=== PATIENT | female | born 1935 | race Caucasian/White ===

== ENCOUNTER → 2019-01-28 | Outpatient (CLI) | payer MEDICARE ==
[2019-01-28 12:29] LABS: BILIRUBIN,URINE NEGATIVE (NEGATIVE); CLARITY,URINE SL CLOUDY; COLOR,URINE YELLOW; GLUCOSE, URINE (UA) NEGATIVE (NEGATIVE); KETONES,URINE NEGATIVE (NEGATIVE); NITRITE,URINE NEGATIVE (NEGATIVE); PROTEIN,URINE NEGATIVE (NEGATIVE); UROBILINOGEN,URINE 0.2 MG/DL (NORMAL)
[2019-01-28 12:30] LABS: BACTERIA,URINE TRACE /HPF; LEUKOCYTE ESTERASE ,URINE 1+ (NEGATIVE); YEAST,URINE LARGE /HPF
== END ==
LOC: LAB FS 09:26
PROVIDERS: ATTEND Family Medicine
DX: R41.0 Disorientation, unspecified (principal); R39.15 Urgency of urination
CPT/HCPCS: 81000; 87088

== ENCOUNTER → 2019-03-13 | Outpatient (CLI) | payer MEDICARE ==
[2019-03-13 12:23] LABS: CLARITY,URINE CLOUDY; COLOR,URINE YELLOW; PH,URINE 6.5 (5-9)
[2019-03-13 12:24] LABS: BACTERIA,URINE FEW /HPF; BILIRUBIN,URINE NEGATIVE (NEGATIVE); GLUCOSE, URINE (UA) NEGATIVE (NEGATIVE); KETONES,URINE NEGATIVE (NEGATIVE); LEUKOCYTE ESTERASE ,URINE 3+ (NEGATIVE); NITRITE,URINE NEGATIVE (NEGATIVE); PROTEIN,URINE NEGATIVE (NEGATIVE); WBC,URINE TNTC /HPF
== END ==
LOC: LAB FS 11:45
PROVIDERS: ATTEND Obstetrics & Gynecology Gynecology
DX: N39.0 Urinary tract infection, site not specified (principal)
CPT/HCPCS: 81000; 87077; 87088; 87186

== ENCOUNTER → 2019-07-13 | Outpatient (CLI) | payer MEDICARE ==
--- NOTE | 2019-07-13 17:12 | Diagnostic Imaging Report ---
PROCEDURE: US right lower extremity venous. TECHNIQUE: Multiple real-time grayscale images were obtained over the right lower extremity in various projections. Additional spectral analysis and color Doppler duplex images were also obtained. INDICATION: Right lower extremity swelling. FINDINGS: Color Doppler imaging shows normal flow throughout the right lower extremity venous system. Calf compression showed normal augmentation of flow at the level. No popliteal cyst. IMPRESSION: Negative right extremity for venous thrombosis. Dictated by: Dictated on workstation # [id number]
== END ==
LOC: RAD 15:30
PROVIDERS: ATTEND Nurse Practitioner
DX: M79.89 Other specified soft tissue disorders (principal)

== ENCOUNTER → 2020-02-06 | Outpatient (CLI) | payer MEDICARE ==
--- NOTE | 2020-02-06 09:30 | Diagnostic Imaging Report ---
CLINICAL INDICATION: Patient complains of repetitive falls. EXAM: Axial CT scan of the brain without IV contrast with coronal and sagittal reformatted images. Auto Exposure Controls were utilized during the CT exam to meet ALARA standards for radiation dose reduction. COMPARISON: None. FINDINGS: There is skull streak artifact which limits evaluation of the brainstem, posterior fossa, and portions of the brain near the skull base. There are focal, patchy, and confluent areas of low-attenuation white matter changes seen throughout both cerebral hemispheres and periventricular regions which may be related to chronic small vessel ischemic disease and leukoaraiosis. The right cerebral hemisphere region is affected more than the left side. There is a small amount of low density involving the cortical and subcortical white matter regions of the occipital lobes bilaterally (left side more than the right). There is diffuse brain parenchymal volume loss. There is no hydrocephalus, brain herniation, or midline shift. The basal cisterns show no significant abnormality. The extracranial soft tissues, skull, and orbits are unremarkable. There is mild mucosal thickening involving the left maxillary sinus. The mastoid air cells are clear. IMPRESSION: 1. There is skull streak artifact which obscures portions of the brainstem, posterior fossa, and portions of the brain near the skull base. 2. There are small areas of low density involving the cortical and subcortical white matter regions of the occipital lobes bilaterally (left side more than the right). These findings may be seen with posterior reversible encephalopathy syndrome. Given that this finding is bilateral, infarcts are suspected to be less likely. Prior areas of encephalomalacia also cannot be completely excluded as this area is partially obscured by streak artifact. MRI of the brain with and without IV contrast is suggested for further evaluation. 3. Otherwise, there is no definite CT evidence of interval acute cerebral infarction, intracranial hemorrhage, or mass seen. Given the diffuse low attenuation changes throughout the brain parenchyma which can obscure more subtle findings, if there is clinical concern for acute cerebral infarction, MRI of the brain would better evaluate. Dictated by: Dictated on workstation # [id number]
== END ==
LOC: RAD FS 08:38
PROVIDERS: ATTEND Family Medicine
DX: G93.89 Other specified disorders of brain (principal); R29.90 Unspecified symptoms and signs involving the nervous system
CPT/HCPCS: 70450

== ENCOUNTER → 2020-02-13 | Outpatient (CLI) | payer MEDICARE ==
[~2020-02-13] MED LIST: GADOBUTROL 7.5 MMOL/7.5 ML (GADAVIST) VIAL IV ONE
[2020-02-13 14:14] LABS: CREATININE SERUM 1.07 MG/DL (0.60-1.30)
--- NOTE | 2020-02-13 18:40 | Diagnostic Imaging Report ---
PROCEDURE: MR imaging of the brain with and without contrast. TECHNIQUE: Multiplanar, multisequence MR imaging of the brain was performed with and without contrast. INDICATION: Left arm weakness There are no prior MRI examinations available for comparison. The CT head exam performed on 02/06/2020 did raise a question of PRES(posterior reversible encephalopathy syndrome). On the diffusion series of this exam, however, there is no abnormal signal in this region to suggest an area of acute ischemia. However, there is a band of increased signal adjacent to the right occipital horn. There is a corresponding area of diminished signal in this area on the apparent diffusion coefficient series and I do suspect this finding is related to a subacute nonhemorrhagic infarct. There is no sign of colette parenchymal hemorrhage in this region on the T1 series but there is a small area of increased signal conforming to the gyri of the right parietal lobe at this level. This may represent hemorrhagic transformation. There is no other abnormal signal arising from the brain on the diffusion series to indicate an area of acute ischemia. There is no abnormal enhancement on the postcontrast series either to suggest a neoplastic or infectious process. There is slight enhancement in the area of the suspected infarct in the right parietal lobe, however. The ventricles are stable in size when compared to the prior study. There are focal and diffuse areas of increased signal in the periventricular white matter bilaterally on the FLAIR series. These are most likely due to encephalomalacia from microvascular ischemia. The sella is not enlarged and the expected carotid flow voids are evident bilaterally. The orbits are symmetrical and within normal limits. The sinuses are generally clear. The 7th and 8th nerve complexes are unremarkable. IMPRESSION: 1. 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 There may also be a small amount of hemorrhagic transformation in this area but there is no colette parenchymal hemorrhage identified. 2. There is no acute intracranial abnormality noted otherwise. 3. These results were discussed with Dr. Lorne Deleon at the [employer]. Dictated on workstation # [id number]
== END ==
LOC: RAD 14:45
PROVIDERS: ATTEND Psychiatry & Neurology Neurology
DX: I63.89 Other cerebral infarction (principal); R53.1 Weakness
CPT/HCPCS: 36415; 70553; 82565; 84520

== ENCOUNTER 2020-02-18 15:26 | Emergency (ER) | payer MEDICARE ==
--- NOTE | 2020-02-18 16:10 | ED General ---
General Chief Complaint: Cough/Cold/Flu Symptoms Stated Complaint: SOA;FEVER History of Present Illness Date Seen by Provider: Feb 18, 2020 Time Seen by Provider: 16:06 Initial Comments 85-year-old female brought by ambulance from assisted living at [facility] they say she was short of breath getting breathing treatments all day and had a temperature of 100.4 patient agrees she's had cough and some shortness of breath starting last night she is not aware of any fever denies any kind of pain She denies knowledge of exposure to any illness pt has parkinsons and dementia hx of breast ca does use nebulized albuterol and ipatrop and has O2 on prn basis Apparently she's felt to have had a light stroke recently she denies this there is a CT scan dated 02-05 which just showed artifact with no obvious changes and then there is an MRI dated 02-12 showing subacute right parietal infarct however there is no documentation that she was seen at this facility by clinician recently She says she recently fell and hurt her right shoulder but didn't have a stroke that she knows of and her arms and legs are working normally Allergies and Home Medications Allergies Coded Allergies: Sulfa (Sulfonamide Antibiotics) (Verified Allergy, Unknown, 02/13/20) Patient Home Medication List Home Medication List Reviewed: Yes Review of Systems Review of Systems Constitutional: fever (reported by nursing facility) EENTM: no symptoms reported Respiratory: cough, short of breath Cardiovascular: no symptoms reported; No palpitations, No syncope Gastrointestinal: No abdominal pain, No diarrhea, No nausea, No vomiting Genitourinary: no symptoms reported Musculoskeletal: no symptoms reported Physical Exam Vital Signs Vital Signs - First Documented Capillary Refill : Height, Weight, BMI Height: '" Weight: lbs. oz. kg; BMI Method: General Appearance: No Apparent Distress, Other (occasional congested cough) Eyes: Bilateral Eye PERRL, Bilateral Eye EOMI HEENT: TMs Normal, Pharynx Normal, Moist Mucous Membranes Neck: Supple Respiratory: No Respiratory Distress; Rhonci Cardiovascular: Regular Rate, Rhythm Gastrointestinal: Normal Bowel Sounds, Non Tender, Soft Extremity: Other (pt has some tense edema R leg > L little red and warm and tender on R seems relatively minor) Focused Exam Lactate Level 02/18/20 15:43: Lactic Acid Level 2.15*H Lactic Acid Level Laboratory Tests Test 02/18/20 15:43 Lactic Acid Level 2.15 MMOL/L (0.50-2.00) *H Progress/Results/Core Measures Suspected Sepsis SIRS Temperature: Pulse: Respiratory Rate: Laboratory Tests 02/18/20 15:43: White Blood Count 18.7H Blood Pressure / Mean: 02/18/20 15:43: Lactic Acid Level 2.15*H Laboratory Tests 02/18/20 15:43: Creatinine 0.76, Platelet Count 199, Total Bilirubin 0.8 Results/Orders Lab Results Laboratory Tests Test 02/18/20 15:43 02/18/20 15:45 Range/Units White Blood Count 18.7 H 4.3-11.0 10^3/uL Red Blood Count 4.07 L 4.35-5.85 10^6/uL Hemoglobin 11.6 11.5-16.0 G/DL Hematocrit 37 35-52 % Mean Corpuscular Volume 90 80-99 FL Mean Corpuscular Hemoglobin 29 25-34 PG Mean Corpuscular Hemoglobin Concent 32 32-36 G/DL Red Cell Distribution Width 14.9 H 10.0-14.5 % Platelet Count 199 130-400 10^3/uL Mean Platelet Volume 11.9 H 7.4-10.4 FL Immature Granulocyte % (Auto) 1 % Neutrophils (%) (Auto) 88 H 42-75 % Lymphocytes (%) (Auto) 4 L 12-44 % Monocytes (%) (Auto) 7 0-12 % Eosinophils (%) (Auto) 0 0-10 % Basophils (%) (Auto) 0 0-10 % Neutrophils # (Auto) 16.4 H 1.8-7.8 X 10^3 Lymphocytes # (Auto) 0.8 L 1.0-4.0 X 10^3 Monocytes # (Auto) 1.3 H 0.0-1.0 X 10^3 Eosinophils # (Auto) 0.0 0.0-0.3 10^3/uL Basophils # (Auto) 0.1 0.0-0.1 10^3/uL Immature Granulocyte # (Auto) 0.1 0.0-0.1 10^3/uL Neutrophils % (Manual) 74 % Lymphocytes % (Manual) 5 % Monocytes % (Manual) 7 % Eosinophils % (Manual) 0 % Basophils % (Manual) 0 % Band Neutrophils 14 % Blood Morphology Comment NORMAL Sodium Level 135 135-145 MMOL/L Potassium Level 4.0 3.6-5.0 MMOL/L Chloride Level 96 L 98-107 MMOL/L Carbon Dioxide Level 27 21-32 MMOL/L Anion Gap 12 5-14 MMOL/L Blood Urea Nitrogen 23 H 7-18 MG/DL Creatinine 0.76 0.60-1.30 MG/DL Estimat Glomerular Filtration Rate > 60 BUN/Creatinine Ratio 30 Glucose Level 111 H 70-105 MG/DL Lactic Acid Level 2.15 *H 0.50-2.00 MMOL/L Calcium Level 9.4 8.5-10.1 MG/DL Corrected Calcium 9.3 8.5-10.1 MG/DL Total Bilirubin 0.8 0.1-1.0 MG/DL Aspartate Amino Transf (AST/SGOT) 15 5-34 U/L Alanine Aminotransferase (ALT/SGPT) 5 0-55 U/L Alkaline Phosphatase 83 40-136 U/L Total Protein 6.9 6.4-8.2 GM/DL Albumin 4.1 3.2-4.5 GM/DL My Orders Orders - SAGE HARPER MD Iv/Invasive Line Insertion .IV start (02/18/20 16:17) Cbc With Automated Diff (02/18/20 16:17) Comprehensive Metabolic Panel (02/18/20 16:17) Blood Culture (02/18/20 16:17) Lactic Acid Analyzer (02/18/20 16:17) Chest 1 View Ap/Pa Only (02/18/20 16:17) Coronavirus Sars-Cov-2 So 2018 (02/18/20 16:17) Influenza A And B Antigens (02/18/20 16:17) Agronomy Professor (02/18/20 16:17) Ekg Tracing (02/18/20 16:17) Manual Differential (02/18/20 15:43) Ceftriaxone For Iv Use (Rocephin For I (02/18/20 17:15) Azithromycin Injection (Zithromax Inject (02/18/20 17:15) Ns Iv 1000 Ml (Sodium Chloride 0.9%) (02/18/20 17:30) Vital Signs/I&O 02/18/20 02/18/20 15:30 15:30 Temp 36.9 Pulse 90 Resp 24 B/P (MAP) 114/43 (66) Pulse Ox 98 O2 Delivery Room Air Nasal Cannula O2 Flow Rate 2.00 2.00 Capillary Refill : Progress Note : Progress Note Hb 11.6 WBC 18,700 CMP essentially neg lactic 2.15 COVID pending influenza A and B - orthostatics are negative CXR - hiatal hernia densities in right lung consistent with pneumonic infiltrate in pt with cough fever and leukocytosis case discussed in detail with covering hospitalist Dr. Gonzalez feeling is that pt does not need to be admitted will give IV antibiotics (Rocephin and Azithromycin) IV fluidsand DC home on azithromycin, Pt has O2 and breathing treatment prn already ordered ECG Comment EKG - sinus rhythm @78 RBBB and LAHB no acute changes Departure Impression Primary Impression: Pneumonia Qualified Codes: J18.9 - Pneumonia, unspecified organism Disposition: HOME, SELF-CARE Condition: Stable Departure-Patient Inst. Decision time for Depature: 17:51 Referrals: SELFSANDRA MD (PCP/Family) Primary Care Physician re check in 2-3 days Patient Instructions: Pneumonia, Adult (DC) Scripts Azithromycin (Azithromycin) 250 Mg Tablet 250 MG PO DAILY, #4 TAB 0 Refills Prov: SAGE HARPER MD 02/18/20 SAGE HARPER MD Feb 18, 2020 16:10
[2020-02-18 16:34] LABS: HEMOGLOBIN 11.6 G/DL (11.5-16.0); MEAN CORPUSCULAR HEMOGLOBIN 29 PG (25-34); WHITE BLOOD COUNT 18.7 10^3/uL (4.3-11.0)
[2020-02-18 16:35] LABS: BASOPHILS # (AUTO) 0.1 10^3/uL (0.0-0.1); BASOPHILS % (AUTO) 0 % (0-10); EOSINOPHILS % (AUTO) 0 % (0-10); HEMATOCRIT 37 % (35-52); LYMPHOCYTES # (AUTO) 0.8 X 10^3 (1.0-4.0); LYMPHOCYTES % (AUTO) 4 % (12-44); MEAN CORPUSCULAR HGB CONC 32 G/DL (32-36); MEAN CORPUSCULAR VOLUME 90 FL (80-99); MEAN PLATELET VOLUME 11.9 FL (7.4-10.4); MONOCYTES # (AUTO) 1.3 X 10^3 (0.0-1.0); MONOCYTES % (AUTO) 7 % (0-12); NEUTROPHILS # (AUTO) 16.4 X 10^3 (1.8-7.8); NEUTROPHILS % (AUTO) 88 % (42-75); PLATELET COUNT 199 10^3/uL (130-400)
[2020-02-18 16:50] LABS: BUN/CREATININE RATIO 30; CARBON DIOXIDE 27 MMOL/L (21-32); CHLORIDE 96 MMOL/L (98-107); CREATININE SERUM 0.76 MG/DL (0.60-1.30); GFR ESTIMATED > 60; SODIUM 135 MMOL/L (135-145)
[2020-02-18 16:51] LABS: ALANINE AMINOTRANSFERASE 5 U/L (0-55); ALBUMIN 4.1 GM/DL (3.2-4.5); ALKALINE PHOSPHATASE 83 U/L (40-136); BILIRUBIN,TOTAL 0.8 MG/DL (0.1-1.0); CALCIUM 9.4 MG/DL (8.5-10.1); GLUCOSE 111 MG/DL (70-105); TOTAL PROTEIN 6.9 GM/DL (6.4-8.2)
--- NOTE | 2020-02-18 16:53 | Diagnostic Imaging Report ---
INDICATION: Cough and shortness of breath. COMPARISON: No comparison available. FINDINGS: There appears to be a large hiatal hernia. The patient is rotated to the right which appears to accentuate the superior mediastinal contours. There are prominent pulmonary interstitial markings which may reflect an interstitial pneumonia or interstitial edema. There is no significant effusion. There is no pneumothorax. There is no acute or suspicious osseous abnormality. IMPRESSION: 1. Apparent large hiatal hernia. 2. Rotation to the right accentuates right upper mediastinal contours 3. Prominent pulmonary interstitial markings which may reflect interstitial pneumonia or interstitial edema. Dictated by: Dictated on workstation # [id number]
[2020-02-18 16:57] LABS: BAND NEUTROPHILS 14 %; BASOPHILS % (MANUAL) 0 %; EOSINOPHILS % (MANUAL) 0 %; LYMPHOCYTES % (MANUAL) 5 %; MONOCYTES % (MANUAL) 7 %; NEUTROPHILS % (MANUAL) 74 %; RBC MORPH NORMAL
[2020-02-18] MEDS ORDERED: AZITHROMYCIN INJECTION 500 MG in NS (IVPB) 250 ML IV ONE (17:15)
[2020-02-18] MEDS ORDERED: cefTRIAXone FOR IV USE 1,000 MG in WATER (STERILE) FOR INJECTION 10 ML IV ONE (17:15)
[2020-02-18] MEDS ORDERED: NS IV 1000 ML 1,000 ML IV SCH (17:30)
[2020-02-18] MEDS ORDERED: AZIT250T12 PO (17:53)
--- NOTE | 2020-02-18 18:16 | NUR ---
Report given to JANET Singh at [facility] with understanding verbalized.
[2020-02-18 19:04] VITALS: BP 90/43
== END 2020-02-18 19:20 | disposition home or self-care (01) ==
LOC: EDUNIT# 15:26 → ER FS 15:27
DX: J18.9 Pneumonia, unspecified organism (principal); Z20.828 Contact with and (suspected) exposure to other viral communicable diseases; Z88.2 Allergy status to sulfonamides
CPT/HCPCS: 36415; 71045; 80053; 83605; 85007; 85027; 87040; 87804 ×2; 99284; U0002; 87635

== ENCOUNTER 2020-04-23 09:28 | Emergency (ER) | payer MEDICARE, OTHER ==
[~2020-04-23 09:28] MED LIST changes: +AZIT250T12 PO; -GADOBUTROL 7.5 MMOL/7.5 ML (GADAVIST) VIAL IV ONE
--- NOTE | 2020-04-23 09:37 | ED Dyspnea ---
General Stated Complaint: SOB; COVID+ History of Present Illness Date Seen by Provider: Apr 23, 2020 Time Seen by Provider: 09:37 Initial Comments 85-year-old female brought in due to some shortness of breath. Patient reports she started having just some respiratory symptoms about a week ago. Or days ago she was tested positive for COVID. Reports that last night her shortness of breath with a little bit worse and then this morning it was significantly worse. EMS was called. When EMS arrived they report her oxygen saturation was in the mid 70s. They started on 6 L nonrebreather and gave her breathing treatment. Her oxygen upon arrival to the ER is around 96-97%. Patient is alert orientated. Patient has a mild occasional cough, no reports of fevers, nausea vomiting or diarrhea. Allergies and Home Medications Allergies Coded Allergies: Sulfa (Sulfonamide Antibiotics) (Verified Allergy, Unknown, 02/13/20) acetaminophen (Verified Allergy, Unknown, 02/18/20) ciprofloxacin (Verified Allergy, Unknown, 02/18/20) codeine (Verified Allergy, Unknown, 02/18/20) meperidine (Verified Allergy, Unknown, 02/18/20) oxycodone (Verified Allergy, Unknown, 02/18/20) ropinirole (Verified Allergy, Unknown, 02/18/20) Home Medications Azithromycin 250 Mg Tablet, 250 MG PO DAILY Prescribed by: SAGE HARPER on 02/18/20 [id number] Patient Home Medication List Home Medication List Reviewed: Yes Review of Systems Review of Systems Constitutional: No chills, No fever; malaise Respiratory: cough, short of breath, wheezing Cardiovascular: No chest pain, No palpitations Gastrointestinal: No abdominal pain, No diarrhea, No nausea, No vomiting Musculoskeletal: no symptoms reported Skin: no symptoms reported Psychiatric/Neurological: No Symptoms Reported Endocrine: No Symptoms Reported Hematologic/Lymphatic: No Symptoms Reported Past Dvgcxqv-Ssbbtv-Fvvzez Hx Past Med/Social Hx: Reviewed Nursing Past Med/Soc Hx Patient Social History 2nd Hand Smoke Exposure: No Recent Foreign Travel: No Contact w/Someone Who Travel: No Recent Hopitalizations: No Seasonal Allergies Seasonal Allergies: No Past Medical History Respiratory: Yes Cardiac: Yes (CHF) High Cholesterol Dementia, Parkinson's Disease, TIA Genitourinary: Yes UTI-Chronic Gastrointestinal: Yes Gastroesophageal Reflux Musculoskeletal: Yes (Osteomyelitis, Rotator cuff tear, Restless leg syndrome) Osteoporosis, Arthritis Endocrine: Yes (Hypokalemia) Hypothyroidsim HEENT: No Cancer: Yes Breast Psychosocial: Yes Anxiety, Depression Integumentary: No Blood Disorders: No Physical Exam Vital Signs Vital Signs - First Documented 04/23/20 09:35 Temp 37.4 Pulse 88 Resp 27 B/P (MAP) 122/58 (79) Pulse Ox 95 O2 Delivery Nasal Cannula O2 Flow Rate 5.00 Capillary Refill : Height, Weight, BMI Height: '" Weight: lbs. oz. kg; BMI Method: General Appearance: Other (nonrebreather in place otherwise alert in no obvious distress) HEENT: PERRL/EOMI Neck: Non Tender, Supple Respiratory: No Accessory Muscle Use, No Respiratory Distress, Decreased Breath Sounds (bilateral bases); No Wheezing Cardiovascular: Regular Rate, Rhythm, No Edema Gastrointestinal: Non Tender, Soft Neurologic/Psychiatric: Alert, Oriented x3, No Motor/Sensory Deficits, historical archeologist II- XII Norm as Tested Skin: Normal Color, Warm/Dry Focused Exam Lactate Level 04/23/20 09:40: Lactic Acid Level 1.44 Lactic Acid Level Laboratory Tests Test 04/23/20 09:40 Lactic Acid Level 1.44 MMOL/L (0.50-2.00) Progress/Results/Core Measures Results/Orders Lab Results Laboratory Tests Test 04/23/20 09:40 Range/Units White Blood Count 5.5 4.3-11.0 10^3/uL Red Blood Count 4.99 4.35-5.85 10^6/uL Hemoglobin 14.6 11.5-16.0 G/DL Hematocrit 46 35-52 % Mean Corpuscular Volume 91 80-99 FL Mean Corpuscular Hemoglobin 29 25-34 PG Mean Corpuscular Hemoglobin Concent 32 32-36 G/DL Red Cell Distribution Width 14.3 10.0-14.5 % Platelet Count 166 130-400 10^3/uL Mean Platelet Volume 12.2 H 7.4-10.4 FL Immature Granulocyte % (Auto) 0 % Neutrophils (%) (Auto) 72 42-75 % Lymphocytes (%) (Auto) 18 12-44 % Monocytes (%) (Auto) 9 0-12 % Eosinophils (%) (Auto) 1 0-10 % Basophils (%) (Auto) 0 0-10 % Neutrophils # (Auto) 4.0 1.8-7.8 X 10^3 Lymphocytes # (Auto) 1.0 1.0-4.0 X 10^3 Monocytes # (Auto) 0.5 0.0-1.0 X 10^3 Eosinophils # (Auto) 0.0 0.0-0.3 10^3/uL Basophils # (Auto) 0.0 0.0-0.1 10^3/uL Immature Granulocyte # (Auto) 0.0 0.0-0.1 10^3/uL Sodium Level 136 135-145 MMOL/L Potassium Level 4.0 3.6-5.0 MMOL/L Chloride Level 94 L 98-107 MMOL/L Carbon Dioxide Level 32 21-32 MMOL/L Anion Gap 10 5-14 MMOL/L Blood Urea Nitrogen 25 H 7-18 MG/DL Creatinine 0.79 0.60-1.30 MG/DL Estimat Glomerular Filtration Rate > 60 BUN/Creatinine Ratio 32 Glucose Level 121 H 70-105 MG/DL Lactic Acid Level 1.44 0.50-2.00 MMOL/L Calcium Level 9.2 8.5-10.1 MG/DL Corrected Calcium 9.0 8.5-10.1 MG/DL Total Bilirubin 0.3 0.1-1.0 MG/DL Aspartate Amino Transf (AST/SGOT) 20 5-34 U/L Alanine Aminotransferase (ALT/SGPT) 5 0-55 U/L Alkaline Phosphatase 93 40-136 U/L Troponin I < 0.30 <0.30 NG/ML C-Reactive Protein 1.41 H <0.50 MG/DL Total Protein 7.0 6.4-8.2 GM/DL Albumin 4.2 3.2-4.5 GM/DL My Orders Orders - TOBAR,HI L DO Vital Signs: Every 4 Hours (Or (04/23/20 09:37) Monitor-Rhythm Ecg Trace Only (04/23/20:37) Cbc With Automated Diff (04/23/20:37) Comprehensive Metabolic Panel (04/23/20:37) Ferritin (04/23/20:37) LDH (04/23/20:37) Crp Fs (04/23/20:37) Troponin I Fs (04/23/20:37) Lactic Acid Analyzer (12/29/20 09:37) Protime With Inr (04/23/20 09:37) Partial Thromboplastin Time (04/23/20 09:37) Ekg Tracing (04/23/20 09:37) Oxygen Delivery Set Up (04/23/20 09:37) Oxygen-Administer 07,19 (04/23/20 09:37) Procalcitonin (Pct) (04/23/20 09:37) Ed Iv/Invasive Line Start (04/23/20 09:39) Ns Iv 500 Ml (Sodium Chloride 0.9%) (04/23/20 09:45) Chest 1 View Ap/Pa Only (04/23/20 10:05) Fibrin Degradation Products (04/23/20 09:40) Azithromycin 500mg Ivpb (04/23/20 10:52) Zosyn 4.5gm Iv X 1 (04/23/20 11:00) Enoxaparin Injection (Lovenox Injection) (04/23/20 11:00) Dexamethasone Injection (Decadron Inje (04/23/20 11:00) Blood Culture (04/23/20 10:52) Medications Given in ED Current Medications Medications Dose Ordered Sig/Yinka Route Start Time Stop Time Status Last Admin Dose Admin Sodium Chloride 500 ml @ 0 mls/hr Q0M ONCE IV 04/23/20 09:45 04/23/20 09:46 DC 04/23/20 10:24 1,000 MLS/HR Vital Signs/I&O 04/23/20 09:35 Temp 37.4 Pulse 88 Resp 27 B/P (MAP) 122/58 (79) Pulse Ox 95 O2 Delivery Nasal Cannula O2 Flow Rate 5.00 Initial ECG Impression Date: Apr 23, 2020 Initial ECG Impression Time: 09:52 Initial ECG Rate: 99 Initial ECG Rhythm: Normal Sinus Initial ECG Intervals RBBB Initial ECG Impression: Nonspecific Changes Comment HR 99, RBBB, sinus, non specific changes Diagnostic Imaging Diagonstic Imaging: Xray Plain Films/CT/US/NM/MRI: chest Comments [facility] [place] [place] NAME: KRYSTYNA ROBLES [facility] REC#: [id number] PT STATUS: REG ER : 1935 PHYSICIAN: HI TOBAR DO ADMIT DATE: 04/23/20/ER FS Draft Date of Exam:04/23/20 CHEST 1 VIEW AP/PA ONLY INDICATION: Cough and shortness of breath. TIME OF EXAM: 10:10 AM. COMPARISON: 02/18/2020. FINDINGS: The heart size is normal. There appears to be some parenchymal consolidation in the medial right base. The left lung is clear. The pulmonary vascularity is normal. There is no effusion or pneumothorax. IMPRESSION: Consolidation in the right medial lung base. Dictated on workstation # [id number] Dict: 04/23/20 1024 Trans: 04/23/20 1028 [id number] Interpreted by: SMITA PENNY MD Electronically signed by: Reviewed: Reviewed by Me, Reviewed/Discussed Departure Impression Primary Impression: Pneumonia Qualified Codes: J18.9 - Pneumonia, unspecified organism Additional Impression: COVID-19 Disposition: 02 XFER SHT-TRM HOSP Condition: Stable Transfer Transfer Reason: Diversion Time Spoke to Accepting Phy: 10:55 Transfer Progress Notes Discussed with Dr. Amaro who would like patient transferred to [place] due to bed situation at [facility] Transfer Facility: [facility] Method of Transfer: EMS Departure-Patient Inst. Referrals: SELF,SANDRA TAVERA (PCP/Family) Primary Care Physician HI TOBAR DO Apr 23, 2020 09:37
[2020-04-23] MEDS ORDERED: NS IV 500 ML 500 ML IV ONE (09:45)
--- NOTE | 2020-04-23 10:29 | Diagnostic Imaging Report ---
INDICATION: Cough and shortness of breath. TIME OF EXAM: 10:10 AM. COMPARISON: 02/18/2020. FINDINGS: The heart size is normal. There appears to be some parenchymal consolidation in the medial right base. The left lung is clear. The pulmonary vascularity is normal. There is no effusion or pneumothorax. IMPRESSION: Consolidation in the right medial lung base. Dictated by: Dictated on workstation # [id number]
[2020-04-23 10:31] LABS: BILIRUBIN,TOTAL 0.3 MG/DL (0.1-1.0); BUN/CREATININE RATIO 32; CALCIUM 9.2 MG/DL (8.5-10.1); CARBON DIOXIDE 32 MMOL/L (21-32); CHLORIDE 94 MMOL/L (98-107); CREATININE SERUM 0.79 MG/DL (0.60-1.30); GFR ESTIMATED > 60; GLUCOSE 121 MG/DL (70-105); SODIUM 136 MMOL/L (135-145)
[2020-04-23 10:32] LABS: ALANINE AMINOTRANSFERASE 5 U/L (0-55); ALBUMIN 4.2 GM/DL (3.2-4.5); ALKALINE PHOSPHATASE 93 U/L (40-136)
[2020-04-23 10:33] LABS: HEMATOCRIT 46 % (35-52); HEMOGLOBIN 14.6 G/DL (11.5-16.0); MEAN CORPUSCULAR HEMOGLOBIN 29 PG (25-34); MEAN CORPUSCULAR HGB CONC 32 G/DL (32-36); MEAN CORPUSCULAR VOLUME 91 FL (80-99); MEAN PLATELET VOLUME 12.2 FL (7.4-10.4); NEUTROPHILS % (AUTO) 72 % (42-75); PLATELET COUNT 166 10^3/uL (130-400); WHITE BLOOD COUNT 5.5 10^3/uL (4.3-11.0)
[2020-04-23 10:34] LABS: BASOPHILS % (AUTO) 0 % (0-10); EOSINOPHILS % (AUTO) 1 % (0-10); LYMPHOCYTES % (AUTO) 18 % (12-44); MONOCYTES # (AUTO) 0.5 X 10^3 (0.0-1.0); MONOCYTES % (AUTO) 9 % (0-12)
[2020-04-23] MEDS ORDERED: AZITHROMYCIN INJECTION 500 MG in NS (IVPB) 250 ML IV STA (10:52)
[2020-04-23] MEDS ORDERED: PIPERACILLIN SODIUM/TAZOBACTAM 4.5 GM in NS (IVPB) 100 ML IV ONE (11:00)
[2020-04-23] MEDS ORDERED: ENOXAPARIN 40 MG/0.4 ML (LOVENOX) SYR SC ONE (11:00)
--- NOTE | 2020-04-23 11:13 | NUR ---
Patient's son, Bj, notified of patient's pending admission to [facility] per patient's request.
--- NOTE | 2020-04-23 12:12 | NUR ---
EMS called for transport.
--- NOTE | 2020-04-23 12:12 | NUR ---
Patient's son, Bj called, no answer received, left message that patient is to be admitted at [facility] per Dr. Amaro's preference.
[2020-04-23 12:20] VITALS: BP 108/62
[2020-04-23 12:24] LABS: INR 0.9 (0.8-1.4); PROTHROMBIN TIME PATIENT 12.4 SEC (12.2-14.7)
[2020-04-23 12:25] LABS: FIBRIN DEGRADATION PRODUCTS 0.72 UG/ML (0.00-0.49)
== END 2020-04-23 12:30 | disposition short-term general hospital (02) ==
LOC: EDUNIT# 09:28 → ER FS 09:29
DX: U07.1 COVID-19 (principal); J12.89 Other viral pneumonia; Z86.73 Personal history of transient ischemic attack (TIA), and cerebral infarction without residual deficits; Z88.2 Allergy status to sulfonamides; Z88.5 Allergy status to narcotic agent; Z88.1 Allergy status to other antibiotic agents; Z88.6 Allergy status to analgesic agent; Z88.8 Allergy status to other drugs, medicaments and biological substances; Z85.3 Personal history of malignant neoplasm of breast
CPT/HCPCS: 36415; 71045; 80053; 82728; 83605; 83615; 84145; 84484; 85025; 85379; 85610; 85730; 86141; 87040; 93005; 93041

== ENCOUNTER 2020-10-21 16:16 | Emergency (ER) | payer MEDICARE ==
[~2020-10-21] VITALS: Ht 162.5 cm; Wt 72.6 kg
--- NOTE | 2020-10-21 16:29 | ED Dyspnea ---
General Source of Information: Patient, [facility] Records History of Present Illness Date Seen by Provider: Oct 21, 2020 Time Seen by Provider: 16:16 Initial Comments 85-year-old female presenting from [facility] due to increased shortness of breath and cough. She has a history of pneumonia and chronic breathing issues including COPD and CHF. The facility has her on oxygen 2 L/min for shortness of breath and low oxygen. She has orders for Lasix as well as breathing treatments. Today when she was feeling short of breath and wheezing EMS was activated. Her O2 sat's were in the mid 90s. She did not appear to be in any distress with her breathing and was given a breathing treatment in route. She reported a subjective fever. No chest pain, nausea, vomiting, abdominal pain, productive cough. She does have a dry cough that is not productive of sputum. Timing/Duration: Other (Patient reports this has been worsening in the last few days) Severity: Moderate Prior Episodes/Possible Cause: Chronic Episodes, Frequent Episodes Modifying Factors: Improves With Albuterol Nebulizer, Improves With Oxygen, Improves With Rest Associated Symptoms: Anxiety, Cough, Fever (Objective), Wheezing Allergies and Home Medications Allergies Coded Allergies: Sulfa (Sulfonamide Antibiotics) (Verified Allergy, Unknown, 02/13/20) acetaminophen (Verified Allergy, Unknown, 02/18/20) ciprofloxacin (Verified Allergy, Unknown, 02/18/20) codeine (Verified Allergy, Unknown, 02/18/20) meperidine (Verified Allergy, Unknown, 02/18/20) oxycodone (Verified Allergy, Unknown, 02/18/20) ropinirole (Verified Allergy, Unknown, 02/18/20) Home Medications Azithromycin 250 Mg Tablet, 250 MG PO DAILY Prescribed by: SAGE HARPER on 02/18/201752 Furosemide 40 Mg Tablet, 80 MG PO BID Prescribed by: FABIOLA TOBIAS on 10/21/201948 Patient Home Medication List Home Medication List Reviewed: Yes Review of Systems Review of Systems Constitutional: No chills; fever (Subjective fevers) EENTM: no symptoms reported Respiratory: see HPI, cough, short of breath; No stridor; wheezing Cardiovascular: No chest pain Gastrointestinal: no symptoms reported Genitourinary: no symptoms reported Musculoskeletal: no symptoms reported Skin: no symptoms reported Psychiatric/Neurological: Anxiety Endocrine: No Symptoms Reported Past Kxkbidm-Jpeiep-Utgzoy Hx Patient Social History 2nd Hand Smoke Exposure: No Recent Hopitalizations: No Seasonal Allergies Seasonal Allergies: No Past Medical History Respiratory: Yes COPD Cardiac: Yes (CHF) Cardiomyopathy (Heart failure), High Cholesterol, Hypertension Neurological: Yes Dementia, Parkinson's Disease, TIA Genitourinary: Yes UTI-Chronic Gastrointestinal: Yes Gastroesophageal Reflux Musculoskeletal: Yes (Osteomyelitis, Rotator cuff tear, Restless leg syndrome) Osteoporosis, Arthritis Endocrine: Yes (Hypokalemia) Hypothyroidsim HEENT: No Cancer: Yes Breast Psychosocial: Yes Anxiety, Depression Integumentary: No Blood Disorders: No Physical Exam Vital Signs Vital Signs - First Documented Capillary Refill : Height, Weight, BMI Height: '" Weight: lbs. oz. kg; BMI Method: General Appearance: No Apparent Distress, WD/WN Respiratory: Chest Non Tender, Decreased Breath Sounds; No Respiratory Distress, No Rhonci; Wheezing Cardiovascular: Regular Rate, Rhythm, Normal Peripheral Pulses Gastrointestinal: No Pulsatile Mass, Non Tender, Soft Rectal: Deferred Extremity: Normal Capillary Refill, No Calf Tenderness, No Pedal Edema Neurologic/Psychiatric: Alert, crane chaser II-XII Norm as Tested Skin: Normal Color, Warm/Dry Focused Exam Lactate Level 10/21/20 16:27: Lactic Acid Level 1.57 Lactic Acid Level Laboratory Tests Test 10/21/20 16:27 Lactic Acid Level 1.57 MMOL/L (0.50-2.00) Progress/Results/Core Measures Results/Orders Lab Results Laboratory Tests Test 10/21/20 16:27 Range/Units White Blood Count 20.4 H 4.3-11.0 10^3/uL Red Blood Count 4.69 4.35-5.85 10^6/uL Hemoglobin 13.9 11.5-16.0 G/DL Hematocrit 43 35-52 % Mean Corpuscular Volume 91 80-99 FL Mean Corpuscular Hemoglobin 30 25-34 PG Mean Corpuscular Hemoglobin Concent 33 32-36 G/DL Red Cell Distribution Width 14.4 10.0-14.5 % Platelet Count 293 130-400 10^3/uL Mean Platelet Volume 11.2 H 7.4-10.4 FL Immature Granulocyte % (Auto) 1 % Neutrophils (%) (Auto) 88 H 42-75 % Lymphocytes (%) (Auto) 6 L 12-44 % Monocytes (%) (Auto) 6 0-12 % Eosinophils (%) (Auto) 1 0-10 % Basophils (%) (Auto) 0 0-10 % Neutrophils # (Auto) 17.9 H 1.8-7.8 X 10^3 Lymphocytes # (Auto) 1.1 1.0-4.0 X 10^3 Monocytes # (Auto) 1.1 H 0.0-1.0 X 10^3 Eosinophils # (Auto) 0.1 0.0-0.3 10^3/uL Basophils # (Auto) 0.1 0.0-0.1 10^3/uL Immature Granulocyte # (Auto) 0.1 0.0-0.1 10^3/uL Neutrophils % (Manual) 86 % Lymphocytes % (Manual) 9 % Monocytes % (Manual) 4 % Band Neutrophils 1 % Toxic Granulation 3+ Platelet Estimate ADEQ Blood Morphology Comment NORMAL Sodium Level 133 L 135-145 MMOL/L Potassium Level 4.1 3.6-5.0 MMOL/L Chloride Level 94 L 98-107 MMOL/L Carbon Dioxide Level 30 21-32 MMOL/L Anion Gap 9 5-14 MMOL/L Blood Urea Nitrogen 17 7-18 MG/DL Creatinine 0.77 0.60-1.30 MG/DL Estimat Glomerular Filtration Rate > 60 BUN/Creatinine Ratio 22 Glucose Level 119 H 70-105 MG/DL Lactic Acid Level 1.57 0.50-2.00 MMOL/L Calcium Level 9.5 8.5-10.1 MG/DL Corrected Calcium 9.5 8.5-10.1 MG/DL Magnesium Level 1.9 1.6-2.4 MG/DL Total Bilirubin 0.5 0.1-1.0 MG/DL Aspartate Amino Transf (AST/SGOT) 7 5-34 U/L Alanine Aminotransferase (ALT/SGPT) < 5 0-55 U/L Alkaline Phosphatase 90 40-136 U/L C-Reactive Protein 2.65 H <0.50 MG/DL Pro-B-Type Natriuretic Peptide 370.5 H <75.0 PG/ML Total Protein 7.0 6.4-8.2 GM/DL Albumin 4.0 3.2-4.5 GM/DL My Orders Orders - FABIOLA TOBIAS MD Cbc With Automated Diff (10/21/20 16:24) Comprehensive Metabolic Panel (10/21/20 16:24) Blood Culture (10/21/20 16:24) Chest 1 View Ap/Pa Only (10/21/20 16:24) Magnesium (10/21/20 16:24) O2 (10/21/20 16:24) Ed Iv/Invasive Line Start (10/21/20 16:24) Sputum Culture (10/21/20 16:24) Monitor-Rhythm Ecg Trace Only (10/21/20 16:24) Crp Fs (10/21/20 16:24) Lactic Acid Analyzer (10/21/20 16:24) Manual Differential (10/21/20 16:27) Probnp Fs (10/21/20 17:29) Furosemide Tablet (Lasix Tablet) (10/21/20 20:05) Blood Culture (10/21/20 20:06) Vital Signs/I&O 10/21/20 10/21/20 10/21/20 16:24 16:24 20:22 Temp 36.9 Pulse 101 68 Resp 16 18 B/P (MAP) 116/65 (82) 121/66 Pulse Ox 91 91 97 O2 Delivery Nasal Cannula Nasal Cannula Room Air O2 Flow Rate 2.00 2.00 Progress Progress Note #1: Progress Note Obtain labs and chest x-ray. Evaluate for pneumonia or fluid buildup Progress Note #2: Progress Note Labs per stable without acute significant normality. She does not have elevated lactic acid or cardiac enzymes. Her white blood cell count is elevated but again she does not have elevated lactic acid or signs of infection otherwise. Her chest x-ray shows increased pulmonary edema for CHF but no acute infiltrate. Will treat for CHF exacerbation and increase her Lasix for the next 3 days. Have them do scheduled breathing treatments in the next 3 days. Follow-up with the clinic at the end of the week. Diagnostic Imaging Diagonstic Imaging: Xray Plain Films/CT/US/NM/MRI: chest Comments [facility]. [place], [place] NAME: KRYSTYNA ROBLES [facility] REC#: [id number] PT STATUS: REG ER : 1935 PHYSICIAN: FABIOLA TOBIAS MD ADMIT DATE: 10/21/20/ER FS Signed Date of Exam:10/21/20 CHEST 1 VIEW AP/PA ONLY INDICATION: Cough and congestion. COMPARISON: 04/23/2020. FINDINGS: Portable chest shows development of cardiomegaly. Pulmonary venous congestive changes with increased interstitial infiltrates are noted throughout. No pneumothorax. Probable small bibasilar effusions. IMPRESSION: Findings are consistent with congestive heart failure developing since previous exam. Dictated by: Dictated on workstation # [id number] Dict: 10/21/20 165 Trans: 10/21/208 AS6 [id number] Interpreted by: MONSE FONTANA MD Electronically signed by: MONSE FONTANA MD 10/21/201657 Reviewed: Reviewed by Me Departure Impression Primary Impression: CHF exacerbation Qualified Codes: I50.9 - Heart failure, unspecified Additional Impression: Shortness of breath Disposition: 01 HOME, SELF-CARE Condition: Stable Departure-Patient Inst. Decision time for Depature: 19:47 Referrals: SANDRA MAHAN MD (PCP/Family) Primary Care Physician Patient Instructions: Shortness of Breath, Adult ED, Heart Failure ED Add. Discharge Instructions: For the next 3 days take Lasix 80 mg or 2 of your 40 mg pills twice a day. Use breathing treatments of the Albuterol/Ipratropium [place] 4 times a day scheduled for the next [address] Check back with Dr. Mahan or [facility] at end of this week about shortness of breath/wheezing and your heart failure Scripts Furosemide (Furosemide) 40 Mg Tablet 80 MG PO BID for CHF for 3 Days, #12 TAB 0 Refills Prov: FABIOLA TOBIAS MD 10/21/20 FABIOLA TOBIAS MD Oct 21, 2020 16:29
--- NOTE | 2020-10-21 16:53 | Diagnostic Imaging Report ---
INDICATION: Cough and congestion. COMPARISON: 04/23/2020. FINDINGS: Portable chest shows development of cardiomegaly. Pulmonary venous congestive changes with increased interstitial infiltrates are noted throughout. No pneumothorax. Probable small bibasilar effusions. IMPRESSION: Findings are consistent with congestive heart failure developing since previous exam. Dictated by: Dictated on workstation # [id number]
[2020-10-21 17:03] LABS: HEMATOCRIT 43 % (35-52); HEMOGLOBIN 13.9 G/DL (11.5-16.0); MEAN CORPUSCULAR HEMOGLOBIN 30 PG (25-34); MEAN CORPUSCULAR HGB CONC 33 G/DL (32-36); MEAN CORPUSCULAR VOLUME 91 FL (80-99); WHITE BLOOD COUNT 20.4 10^3/uL (4.3-11.0)
[2020-10-21 17:04] LABS: BASOPHILS # (AUTO) 0.1 10^3/uL (0.0-0.1); BASOPHILS % (AUTO) 0 % (0-10); EOSINOPHILS # (AUTO) 0.1 10^3/uL (0.0-0.3); EOSINOPHILS % (AUTO) 1 % (0-10); LYMPHOCYTES # (AUTO) 1.1 X 10^3 (1.0-4.0); LYMPHOCYTES % (AUTO) 6 % (12-44); MEAN PLATELET VOLUME 11.2 FL (7.4-10.4); MONOCYTES # (AUTO) 1.1 X 10^3 (0.0-1.0); MONOCYTES % (AUTO) 6 % (0-12); NEUTROPHILS # (AUTO) 17.9 X 10^3 (1.8-7.8); NEUTROPHILS % (AUTO) 88 % (42-75); PLATELET COUNT 293 10^3/uL (130-400)
[2020-10-21 17:14] LABS: BUN/CREATININE RATIO 22; CARBON DIOXIDE 30 MMOL/L (21-32); CHLORIDE 94 MMOL/L (98-107); CREATININE SERUM 0.77 MG/DL (0.60-1.30); GFR ESTIMATED > 60; POTASSIUM 4.1 MMOL/L (3.6-5.0); SODIUM 133 MMOL/L (135-145)
[2020-10-21 17:15] LABS: ALANINE AMINOTRANSFERASE < 5 U/L (0-55); ALKALINE PHOSPHATASE 90 U/L (40-136); BILIRUBIN,TOTAL 0.5 MG/DL (0.1-1.0); CALCIUM 9.5 MG/DL (8.5-10.1); GLUCOSE 119 MG/DL (70-105); MAGNESIUM 1.9 MG/DL (1.6-2.4)
[2020-10-21 18:26] LABS: BAND NEUTROPHILS 1 %; LYMPHOCYTES % (MANUAL) 9 %; MONOCYTES % (MANUAL) 4 %; NEUTROPHILS % (MANUAL) 86 %; PLATELET ESTIMATE ADEQ; RBC MORPH NORMAL; TOXIC GRANULATION/VACUOLAZATIO 3+
[2020-10-21] MEDS ORDERED: FUROSEMIDE 40 MG/4 ML INJ (LASIX) IVP STA (19:49)
[2020-10-21] MEDS ORDERED: FURO40TA4 PO (19:49)
[2020-10-21] MEDS ORDERED: FUROSEMIDE 20 MG (LASIX) TAB PO STA (20:05)
[2020-10-21 20:22] VITALS: BP 121/66
== END 2020-10-21 20:22 | disposition home or self-care (01) ==
LOC: EDUNIT# 16:16 → ER FS 16:19
DX: I11.0 Hypertensive heart disease with heart failure (principal); I50.9 Heart failure, unspecified; R06.02 Shortness of breath; J44.9 Chronic obstructive pulmonary disease, unspecified; G20 Parkinson's disease; Z86.73 Personal history of transient ischemic attack (TIA), and cerebral infarction without residual deficits
CPT/HCPCS: 36415; 71045; 80053; 83605; 83735; 83880; 85007; 85027; 86141; 87040; 93041

== ENCOUNTER 2021-01-08 13:35 | Inpatient (IN) | payer MEDICARE ==
[~2021-01-08] VITALS: Ht 162.6 cm; Wt 71.4 kg
[~2021-01-08 13:35] MED LIST changes: +FURO40TA4 PO
[2021-01-08] MEDS ORDERED: methylPREDNISolone 125 MG (Solu-MEDROL) VIAL IV STA (13:38)
--- NOTE | 2021-01-08 13:38 | ED Cough/URI ---
General Stated Complaint: SOB; COUGH Source: patient History of Present Illness Date Seen by Provider: Jan 08, 2021 Time Seen by Provider: 13:38 Initial Comments 85-year-old female presents with shortness of breath. Patient reports that cough and shortness of breath started last night. She received a breathing treatment sometime early this morning. EMS reports that when they arrived she was audibly wheezy. They gave her a DuoNeb with improvement. Patient normally uses home oxygen. She was at 4 L upon arrival at 96%. She is unsure if she has had a fever. She denies any nausea vomiting, diarrhea, sore throat or other systemic complaints. She does report she is fully vaccinated for Covid. No other systemic complaints Allergies and Home Medications Allergies Coded Allergies: Sulfa (Sulfonamide Antibiotics) (Verified Allergy, Unknown, 02/13/20) acetaminophen (Verified Allergy, Unknown, 02/18/20) ciprofloxacin (Verified Allergy, Unknown, 02/18/20) codeine (Verified Allergy, Unknown, 02/18/20) meperidine (Verified Allergy, Unknown, 02/18/20) oxycodone (Verified Allergy, Unknown, 02/18/20) ropinirole (Verified Allergy, Unknown, 02/18/20) Patient Home Medication List Home Medication List Reviewed: Yes Apixaban (Eliquis) 2.5 Mg Tablet, (Reported) Entered as Reported by: SIDRA AYERS on 01/08/211419 Last Action: New Order Atorvastatin Calcium (Atorvastatin Calcium) 10 Mg Tablet, (Reported) Entered as Reported by: SIDRA AYERS on 01/08/211419 Last Action: New Order Carbidopa/Levodopa (Carbidopa-Levodopa 25-250 Tab) 1 Each Tablet, (Reported) Entered as Reported by: SIDRA AYERS on 01/08/211419 Last Action: New Order Diclofenac Sodium (Diclofenac Sodium) 100 Gm Gel..gram., (Reported) Entered as Reported by: SIDRA AYERS on 01/08/211419 Last Action: New Order Estradiol (Estring) 1 Each Vag.ring, (Reported) Entered as Reported by: SIDRA AYERS on 01/08/211419 Last Action: New Order Fluconazole (Fluconazole) 150 Mg Tablet, (Reported) Entered as Reported by: SIDRA AYERS on 01/08/211419 Last Action: New Order Levothyroxine Sodium (Levothyroxine Sodium) 100 Mcg Tablet, (Reported) Entered as Reported by: SIDRA AYERS on 01/08/211420 Last Action: New Order Linezolid (Linezolid) 600 Mg Tablet, (Reported) Entered as Reported by: SIDRA AYERS on 01/08/211419 Last Action: New Order Mirabegron (Myrbetriq) 50 Mg Tab.er.24h, (Reported) Entered as Reported by: SIDRA AYERS on 01/08/211419 Last Action: New Order Omeprazole (Omeprazole) 20 Mg Capsule., (Reported) Entered as Reported by: SIDRA AYERS on 01/08/211419 Last Action: New Order Paroxetine HCl (Paxil) 20 Mg Tablet, (Reported) Entered as Reported by: SIDRA AYERS on 01/08/211419 Last Action: New Order Pimavanserin Tartrate (Nuplazid) 34 Mg Capsule, (Reported) Entered as Reported by: SIDRA AYERS on 01/08/211419 Last Action: New Order Pramipexole Di-HCl (Pramipexole Dihydrochloride) 0.5 Mg Tablet, (Reported) Entered as Reported by: SIDRA AYERS on 01/08/211419 Last Action: New Order Quetiapine Fumarate (Quetiapine Fumarate) 25 Mg Tablet, (Reported) Entered as Reported by: SIDRA AYERS on 01/08/211419 Last Action: New Order Rivastigmine (Exelon) 9.5 Mg Patch, (Reported) Entered as Reported by: SIDRA AYERS on 01/08/211419 Last Action: New Order Discontinued Medications Azithromycin (Azithromycin) 250 Mg Tablet, 250 MG PO DAILY Discontinued Reason: Referral/FU Appt-Addtl Prescribed by: SAGE HARPER on 02/18/20 884 Last Action: Discontinued Furosemide (Furosemide) 40 Mg Tablet, 80 MG PO BID Discontinued Reason: Referral/FU Appt-Addtl Prescribed by: FABIOLA TOBIAS on 10/21/201948 Last Action: Discontinued Review of Systems Review of Systems Constitutional: fever EENTM: no symptoms reported; No throat pain Respiratory: cough, short of breath Cardiovascular: No chest pain, No palpitations Gastrointestinal: No abdominal pain, No nausea, No vomiting Musculoskeletal: no symptoms reported Skin: no symptoms reported Psychiatric/Neurological: No Symptoms Reported Hematologic/Lymphatic: No Symptoms Reported Immunological/Allergic: no symptoms reported Past Nbdikay-Lusioj-Bxverf Hx Seasonal Allergies Seasonal Allergies: No Past Medical History Surgeries: No Respiratory: Yes COPD Cardiac: Yes (CHF) Cardiomyopathy, High Cholesterol, Hypertension Neurological: Yes Dementia, Parkinson's Disease, TIA Genitourinary: Yes UTI-Chronic Gastrointestinal: Yes Gastroesophageal Reflux Musculoskeletal: Yes (Osteomyelitis, Rotator cuff tear, Restless leg syndrome) Osteoporosis, Arthritis Endocrine: Yes (Hypokalemia) Hypothyroidsim HEENT: No Cancer: Yes Breast Psychosocial: Yes Anxiety, Depression Integumentary: No Blood Disorders: No Physical Exam Vital Signs - First Documented Capillary Refill : Height: '" Weight: lbs. oz. kg; 27.00 BMI Method: General Appearance: WD/WN, no apparent distress Respiratory: No accessory muscle use; stridor, wheezing Cardiovascular: normal peripheral pulses, regular rate, rhythm Gastrointestinal: non tender, soft Extremities: normal range of motion, non-tender Neurologic/Psychiatric: no motor/sensory deficits, alert, normal mood/affect, oriented x 3 Skin: normal color, warm/dry Focused Exam Lactate Level 01/08/21 13:40: Lactic Acid Level 3.08*H 01/08/21 16:05: Lactic Acid Level 2.24*H Lactic Acid Level Laboratory Tests Test 01/08/21 13:40 01/08/21 16:05 Lactic Acid Level 3.08 MMOL/L (0.50-2.00) *H 2.24 MMOL/L (0.50-2.00) *H Progress/Results/Core Measures Suspected Sepsis SIRS Temperature: Pulse: Respiratory Rate: Laboratory Tests 01/08/21 13:40: White Blood Count 17.5H Blood Pressure / Mean: 01/08/21 13:40: Lactic Acid Level 3.08*H 01/08/21 16:05: Lactic Acid Level 2.24*H Laboratory Tests 01/08/21 13:40: Creatinine 0.94, Platelet Count 198, Total Bilirubin 0.7 Results/Orders Lab Results Laboratory Tests Test 01/08/21 13:40 01/08/21 16:05 Range/Units White Blood Count 17.5 H 4.3-11.0 10^3/uL Red Blood Count 4.78 3.80-5.11 10^6/uL Hemoglobin 13.8 11.5-16.0 g/dL Hematocrit 45 35-52 % Mean Corpuscular Volume 94 80-99 fL Mean Corpuscular Hemoglobin 29 25-34 pg Mean Corpuscular Hemoglobin Concent 31 L 32-36 g/dL Red Cell Distribution Width 14.5 10.0-14.5 % Platelet Count 198 130-400 10^3/uL Mean Platelet Volume 10.6 9.0-12.2 fL Immature Granulocyte % (Auto) 0 % Neutrophils (%) (Auto) 94 H 42-75 % Lymphocytes (%) (Auto) 2 L 12-44 % Monocytes (%) (Auto) 3 0-12 % Eosinophils (%) (Auto) 0 0-10 % Basophils (%) (Auto) 0 0-10 % Neutrophils # (Auto) 16.4 H 1.8-7.8 X 10^3 Lymphocytes # (Auto) 0.3 L 1.0-4.0 X 10^3 Monocytes # (Auto) 0.6 0.0-1.0 X 10^3 Eosinophils # (Auto) 0.0 0.0-0.3 10^3/uL Basophils # (Auto) 0.0 0.0-0.1 10^3/uL Immature Granulocyte # (Auto) 0.1 0.0-0.1 10^3/uL Neutrophils % (Manual) 86 % Lymphocytes % (Manual) 2 % Monocytes % (Manual) 10 % Eosinophils % (Manual) 0 % Basophils % (Manual) 0 % Band Neutrophils 2 % Sodium Level 137 135-145 MMOL/L Potassium Level 4.3 3.6-5.0 MMOL/L Chloride Level 94 L 98-107 MMOL/L Carbon Dioxide Level 30 21-32 MMOL/L Anion Gap 13 5-14 MMOL/L Blood Urea Nitrogen 16 7-18 MG/DL Creatinine 0.94 0.60-1.30 MG/DL Estimat Glomerular Filtration Rate 56 BUN/Creatinine Ratio 17 Glucose Level 119 H 70-105 MG/DL Lactic Acid Level 3.08 *H 2.24 *H 0.50-2.00 MMOL/L Calcium Level 9.5 8.5-10.1 MG/DL Corrected Calcium 9.4 8.5-10.1 MG/DL Total Bilirubin 0.7 0.1-1.0 MG/DL Aspartate Amino Transf (AST/SGOT) 30 5-34 U/L Alanine Aminotransferase (ALT/SGPT) 8 0-55 U/L Alkaline Phosphatase 81 40-136 U/L C-Reactive Protein 3.67 H <0.50 MG/DL Pro-B-Type Natriuretic Peptide 522.0 H <75.0 PG/ML Total Protein 7.2 6.4-8.2 GM/DL Albumin 4.1 3.2-4.5 GM/DL My Orders Orders - TOBAR,HI L DO Chest 1 View Ap/Pa Only (01/08/21 13:38) Rt Epinephrine (Racemic Epinephrine 2.25 (01/08/21 13:45) Methylprednisolone Sod Succ (Solu-Medrol (01/08/21 13:38) Hypertonic Saline 3% Neb (Rt-Hypertonic (01/08/21 13:45) Svn Small Volume Nebulizer (01/08/21 13:38) Cbc With Automated Diff (01/08/21 13:38) Comprehensive Metabolic Panel (01/08/21 13:38) Probnp Fs (01/08/21 13:38) Crp Fs (01/08/21 13:38) Rt Epinephrine (Racemic Epinephrine 2.25 (01/08/21 13:40) Manual Differential (01/08/21 13:40) Ceftriaxone (Rocephin) (01/08/21 14:30) Azithromycin Injection (Zithromax Inject (01/08/21 14:30) Blood Culture (01/08/21 14:50) Lactic Acid Analyzer (01/08/21 14:50) Ns Iv 1000 Ml (Sodium Chloride 0.9%) (01/08/21 14:50) Coronavirus Sars-Cov-2 So 2018 (01/08/21 13:40) Medications Given in ED Current Medications Medications Dose Ordered Sig/Yinka Route Start Time Stop Time Status Last Admin Dose Admin Azithromycin 500 mg/Sodium Chloride 250 ml @ 250 mls/hr ONCE ONCE IV 01/08/21 14:30 01/08/21 15:29 DC 01/08/21 15:03 250 MLS/HR Ceftriaxone Sodium 1000 mg/ Sterile Water 10 ml @ 200 mls/hr ONCE ONCE IV 01/08/21 14:30 01/08/21 14:32 DC 01/08/21 15:00 200 MLS/HR Epinephrine 0.5 ml ONCE ONCE INH 01/08/21 13:45 01/08/21 13:46 DC 01/08/21 13:44 0.5 ML Sodium Chloride Hypertonic 15 ml ONCE ONCE IH 01/08/21 13:45 01/08/21 13:46 DC 01/08/21 13:45 15 ML Vital Signs/I&O 01/08/21 01/08/21 01/08/21 13:35 13:35 13:44 Temp 38.6 Pulse 103 Resp 33 B/P (MAP) 137/77 (97) Pulse Ox 96 O2 Delivery Nasal Cannula Nasal Cannula Nasal Cannula O2 Flow Rate 4.00 2.00 4.00 Capillary Refill : Progress Note : Progress Note Patient with bilateral pneumonia. Patient was given azithromycin and Rocephin in the ER. Patient x-ray is concerning for Covid however patient is vaccinated and has Covid previously in June. They are currently not running any rapid Covid test in [place] so she will be admitted for pneumonia and Covid PUI. I discussed with Dr. Nichols who graciously accepted admission. Diagnostic Imaging Diagonstic Imaging: Xray Plain Films/CT/US/NM/MRI: chest Comments Date of Exam:01/08/21 CHEST 1 VIEW AP/PA ONLY INDICATION: Cough. Shortness of air. COMPARISON: 10/21/2020. FINDINGS: A single frontal radiographic view of the chest was obtained and demonstrates interval development of large dense consolidation of the right mid and lower lung silva medially. More patchy airspace opacities are also present within the right upper and scattered throughout the left lung. Small effusions cannot be excluded. There is no pneumothorax. The cardiac silhouette is within normal limits. The osseous structures show no gross acute abnormalities. IMPRESSION: Interval development of bilateral infiltrates. Followup to resolution is recommended. Correlation with Covid 19 status is also advised. Reviewed: Reviewed by Me, Reviewed/Discussed Departure Impression Primary Impression: Pneumonia Qualified Codes: J18.9 - Pneumonia, unspecified organism Additional Impression: Suspected COVID-19 virus infection Disposition: 30 STILL A PATIENT Condition: Stable Admissions Decision to Admit Reason: Admit from ER (General) Decision to Admit/Date: Jan 08, 2021 Time/Decision to Admit Time: 16:20 Departure-Patient Inst. Referrals: SELF,SANDRA TAVERA (PCP/Family) Primary Care Physician HI TOBAR DO Jan 08, 2021 13:38
[2021-01-08] MEDS ORDERED: RT-epiNEPHrine (RACEMIC) 2.25% 0.5 ML VIAL ONE (13:40)
--- OUTSIDE RECORDS SUMMARY | 2021-01-08 13:44 | XMS REPORT | Encounter Summary ---
Author Author [facility] Organization [facility] Address Unknown Phone Unavailable Care Team Providers Care Slate Splitter Name Role Phone Luiz Bowen MD Unavailable Carlitos GARCIA MD, Leland Unavailable Mary Velasquez MD Unavailable Unavailable Raul Little MD Unavailable Unavailable Amaris Pederson APRN-SUPERVISOR/PORT DIRECTOR Unavailable Lorne Deleon MD Unavailable Indra Mahan MD PCP Encounter Details Care Team Description Date Type Department 12/19/2020 Travel Social History Date Tobacco Use Types Packs/Day Years Used Quit: 02/28/1997 Former Smoker Cigarettes 0.5 40 Smokeless Tobacco: Never Used Comments Alcohol Use Standard Drinks/Week quit 1996 No 0 (1 standard drink = 0.6 o z pure alcohol) Alcohol Habits Answer Date Recorded How often do you have a drink containing alcohol? No t asked How many drinks containing alcohol do you have on No t asked a typical day when you are drinking? How often do you have six or more drinks on one Not asked occasion? Comment: quit 199609/17/2016 Sex Assigned at Date Recorded Female 01/11/2020 4:35 PM CDT Date Recorded COVID-19 Exposure Response 12/19/2020 10:36 AM CDT In the last month, have you been in contact with No / Unsure someone who was confirmed or suspected to have Coronavirus / COVID-19? documented as of this encounter Functional Status Date of Assessment Functional Status Response 05/02/2019 Does the patient have a hearing impairment: No 05/02/2019 Does the patient have a visual impairment: Yes 05/02/2019 Does the patient have impaired ambulation: Yes 05/02/2019 Does the patient have an activity of daily living Ye s (ADL) impairment: 05/02/2019 Does the patient have an instrumental activity of Ye s daily living (IADL) impairment: Date of Assessment Cognitive Status Response 05/02/2019 Does the patient have a cognitive impairment: Yes documented as of this encounter Plan of Treatment Not on filedocumented as of this encounter Visit Diagnoses Not on filedocumented in this encounter Additional Health Concerns Assessment Noted Time PHQ-9 Depression Total Score: 0 11/10/2018 1:36 PM CDT A fall risk assessment has been completed for the pat ient 07/31/2020 1:28 PM CDT A Body Mass Index follow-up plan has been documented for the patient 05/02/2019 3:45 PM DIRECTOR OF HOME HEALTH SERVICES PHQ-2 Depression Total Score: 0 12/19/2020 10:52 AM CDT documented as of this encounter
--- OUTSIDE RECORDS SUMMARY | 2021-01-08 13:44 | XMS REPORT | Encounter Summary ---
Author Author [facility] Organization [facility] Address Unknown Phone Unavailable Care Team Providers Care Control Clerk Auditing Name Role Phone Luiz Bowen MD Unavailable Carlitos GARCIA MD, Leland Unavailable Mary Velasquez MD Unavailable Unavailable Raul Little MD Unavailable Unavailable Amaris Pederson APRN-TEXTURE ARTIST Unavailable Lorne Deleon MD Unavailable Indra Mahan MD PCP Reason for Visit * Reason Comments Follow Up Vaginal atrophy Encounter Details Care Team Description Date Type Department Marita, Arline Castillo PA-C [facility] [address] [address] [phone] Vaginal atrophy (Primary Dx); Mixed stress and urge urinary incontinence 12/19/2020 Office Visit Urogynecology: [facility] [address] [place] [address] Social History Date Tobacco Use Types Packs/Day [...] / COVID-19? documented as of this encounter Last Filed Vital Signs Reading Time Taken Comments Vital Sign 110/52 12/19/2020 10:48 AM CDT Blood Pressure 79 12/19/2020 10:48 AM CDT Pulse 36.6 C (97.9 F) 12/19/2020 10:48 AM CDT Temperature 16 12/19/2020 10:48 AM CDT Respiratory Rate 93% 12/19/2020 10:48 AM CDT Oxygen Saturation - - Inhaled Oxygen Concentration 76.2 kg (168 lb) 12/19/2020 10:48 AM CDT Weight 162.6 cm (5' 4") 12/19/2020 10:48 AM CDT Height 28.84 12/19/2020 10:48 AM CDT Body Mass Index documented in this encounter Functional Status Date of Assessment [...] impairment: Yes documented as of this encounter Progress Notes * Arline Kirkland PA-C - 12/19/2020 10:30 AM CDT CHIEF COMPLAINT: Chief Complaint Patient presents with Follow Up Vaginal atrophy Chantal Pascual is a 85 y.o., female, with history of Parkinsons dise ase, urge-predominant mixed urinary incontinence (with REBECA and DO on UDS), who p resents for follow up regarding vaginal atrophy/estring change. She continues to take methenamine and does not report any recent UTIs. She also continues to take Myrbetriq. She does still have urinary incontinence, but Myrbetriq seems to help at least in part. We have previously discussed thi rd line management options for urinary incontinence and patient has declined. She denies abnormal vaginal discharge, vaginal bleeding and irritation/pain. Chantal does not have any complaints today. She is here with her son. ALLERGIES: Percocet [oxycodone-acetaminophen], Sulfa (sulfonamide antibiotics), Ciprofloxac in, Codeine, Morphine, Requip [ropinirole], and Meperidine MEDICATIONS: Current Outpatient Medications: ALPRAZolam (XANAX) 0.25 mg tablet, Take 0.5 mg by mouth every 8 hours as ne eded for Anxiety., Disp: , Rfl: apixaban (ELIQUIS) 2.5 mg tablet, Take 2.5 mg by mouth twice daily., Disp: , Rfl: ascorbate calcium (RANULFO-C PO), Take 500 mg by mouth daily., Disp: , Rfl: aspirin 325 mg tablet, Take 325 mg by mouth daily. Take with food. , Disp: , Rfl: atorvastatin (LIPITOR) 10 mg tablet, Take 5 mg by mouth daily. Indications: excessive fat in the blood, Disp: , Rfl: CALCIUM CARBONATE/VITAMIN D2 (CALCIUM + VITAMIN D PO), Take by mouth daily . 630 calcium 500 vit D, Disp: , Rfl: carbidopa/levodopa (SINEMET) 25/250 mg tablet, Take one tablet by mouth thr ee times daily for 360 days. Indications: Parkinson's disease, Disp: 270 tablet, Rfl: 3 carbidopa/levodopa CR (SINEMET CR) 50/200 mg tablet, Take one tablet by hussain th at bedtime daily., Disp: 90 tablet, Rfl: 3 cefaclor (CECLOR) 250 mg capsule, Take 250 mg by mouth daily. Indications: osteomylitis, Disp: , Rfl: cefdinir (OMNICEF) 300 mg capsule, Take 300 mg by mouth every 12 hours. For 7 days, Disp: , Rfl: COQ10 (UBIQUINOL) PO, Take 200 mg by mouth daily. gummy, Disp: , Rfl: Cranberry 500 mg cap, Take 1 capsule by mouth daily. Indications: Chronic U TI, Disp: , Rfl: diclofenac (VOLTAREN) 1 % topical gel, Apply 4 g topically to affected area four times daily., Disp: , Rfl: DM/acetaminophen/doxylamine (NITE TIME COLD-FLU PO), Take 2 capsules by hussain th every 6 hours as needed (cough)., Disp: , Rfl: esomeprazole DR,+, (NEXIUM) 40 mg capsule, Take 20 mg by mouth every mornin g. Indications: gastroesophageal reflux disease, Disp: , Rfl: estradioL (ESTRING) 2 mg (7.5 mcg /24 hour) vaginal ring, Insert or Apply o ne each to vaginal area every 90 days. follow package directions, Disp: 1 each, Rfl: 3 fluticasone-salmeterol (ADVAIR DISKUS) 250-50 mcg/dose inhalation disk, Inh lesly 1 puff by mouth into the lungs twice daily., Disp: , Rfl: Folic Acid-Vit B6-Vit B12 2.5-25-1 mg tab, Take 1 tablet by mouth daily. (P atient taking differently: Take 1 tablet by mouth every 48 hours.), Disp: 90 tab let, Rfl: 3 furosemide (LASIX) 20 mg tablet, Take 40 mg by mouth twice daily. Indicatio ns: accumulation of fluid resulting from chronic heart failure, Disp: , Rfl: guaifenesin (MUCINEX PO), Take 400 mg by mouth every 4 hours as needed (Con gestion)., Disp: , Rfl: hydrocortisone 1 % topical cream, Apply topically to affected area twice d aily as needed., Disp: , Rfl: IPRATROPIUM BROMIDE NA, Apply into nose as directed as Needed., Disp: , Rf l: L.acid/L.casei/B.bif/B.jenifer/FOS (PROBIOTIC BLEND PO), Take 1 tablet by mouth daily., Disp: , Rfl: LEVOTHYROXINE SODIUM (SYNTHROID PO), Take 100 mcg by mouth daily. Indicatio ns: a condition with low thyroid hormone levels, Disp: , Rfl: methenamine hippurate 1 gram tab, TAKE 1 TABLET BY MOUTH DAILY, Disp: 30 ta blet, Rfl: 2 mirabegron ER (MYRBETRIQ) 50 mg tablet, Take one tablet by mouth daily., Di sp: 90 tablet, Rfl: 3 montelukast (SINGULAIR) 10 mg tablet, Take 10 mg by mouth daily., Disp: , R fl: ondansetron (ZOFRAN ODT) 4 mg rapid dissolve tablet, Dissolve 4 mg by mouth every 8 hours as needed for Nausea or Vomiting. Place on tongue to dissolve., D isp: , Rfl: PARoxetine (PAXIL) 20 mg tablet, Take 1.5 tablets by mouth daily. Indicatio ns: major depressive disorder, Disp: , Rfl: pimavanserin (NUPLAZID) 34 mg capsule, Take one capsule by mouth daily., Di sp: 90 capsule, Rfl: 1 potassium chloride (KLOR-CON 8) 8 mEq tablet, Take 8 mEq by mouth twice bessy ly. Indications: low amount of potassium in the blood, Disp: , Rfl: pramipexole (MIRAPEX) 0.5 mg tablet, Take one tablet by mouth twice daily. Supper and bedtime, Disp: 180 tablet, Rfl: 3 QUEtiapine XR (SEROQUEL XR) 50 mg tablet, Take one tablet by mouth daily. ( Patient taking differently: Take 50 mg by mouth daily. Evening), Disp: 31 tablet , Rfl: 5 rivastigmine (EXELON) 9.5 mg/24 hr transdermal patch, Apply one patch to to p of skin as directed daily., Disp: 30 patch, Rfl: 5 senna/docusate (SENOKOT-S) 8.6/50 mg tablet, Take 1 tablet by mouth daily a s needed. Indications: constipation, Disp: , Rfl: traMADol (ULTRAM) 50 mg tablet, Take 50 mg by mouth every 6 hours as needed for Pain., Disp: , Rfl: Medical History: Diagnosis Date Breast CA ([facility]) 1997 left Cataract Degenerative, intervertebral disc Femur fracture ([facility]) 11/2000 compound/right Generalized headaches GERD (gastroesophageal reflux disease) Hiatal hernia Hiatal hernia Hypercalciuria Hyperlipidemia Hypothyroid Muscle spasm 04/28/14 Osteoporosis post menopausal Parkinson's disease ([facility]) RLS (restless legs syndrome) Vaginal prolapse anterior, apical Vitamin D deficiency Surgical History: Procedure Laterality Date HX APPENDECTOMY 08/1947 HEMORRHOIDECTOMY 01/1965 BREAST LUMPECTOMY 11/1997 BONE GRAFT 2000 OTHER SURGICAL HISTORY Right right lower extremity surgeries, external fixation OBJECTIVE: Vitals: 12/19/20 1048 BP: 110/52 BP Source: Arm, Right Upper Patient Position: Sitting Pulse: 79 Resp: 16 Temp: 36.6 C (97.9 F) SpO2: 93% Weight: 76.2 kg (168 lb) Height: 162.6 cm (64") PainSc: Zero Physical Exam Constitutional: General: She is not in acute distress. Appearance: She is normal weight. Genitourinary: Pelvic exam was performed with patient in the lithotomy position. Vulva and urethra normal. No posterior fourchette injury, rash or lesion present. Vaginal atrophy present. No vaginal discharge, erythema, bleeding or ulceration. HENT: Head: Normocephalic and atraumatic. Cardiovascular: Rate and Rhythm: Normal rate. Pulmonary: Effort: Pulmonary effort is normal. No respiratory distress. Musculoskeletal: Comments: Uses wheelchair, needs assistance with dressing/transfers Neurological: Mental Status: She is alert. Mental status is at baseline. Skin: General: Skin is warm and dry. Psychiatric: Cognition and Memory: Memory is impaired. IMPRESSION 85 y.o., female, with history of Parkinsons disease, seen today in [facility] w-up for vaginal atrophy/genitourinary syndrome of menopause and urge-predominan t mixed urinary incontinence (with REBECA and DO on UDS). PLAN Vaginal atrophy/genitourinary syndrome of menopause Estring changed today. Continue once q 90 days. Patient has a history of recurrent UTIs, but has not had any recent UTIs. We wi ll move forward with a trial of discontinuation of methenamine. We discussed it s possible side effects with long-term use including renal and liver dysfunction so I advised we stop it for now to determine its necessity. Her last CMP was i n September 2019 and was notable for mildly decreased eGFR of 55 which is consistent with her baseline. She may be a candidate for long-term methenamine if UTIs rec ur and its benefits therefore outweigh its risks. Urge predominant mixed urinary incontinence Continue Myrbetriq 50 mg once daily. Follow-up: 3 mo * Kaylah Braun - 12/19/2020 10:30 AM CDT Pertinent Review of Systems: - General ROS: Denies recent weight change above 10 pounds, Denies malaise - HEENT ROS: Denies blurring of vision. Denies double vision, Denies glaucoma, P OS dry eyes - Cardiovascular ROS: Denies chest pain. Denies palpitations currently. Denies o rthopnea - Respiratory ROS: Denies shortness of breath, Denies cough, Denies wheezing c urrently - Gastrointestinal ROS: Denies constipation, Denies gastric reflux, Denies bloo d in stool, Denies diarrhea, Denies Irritable bowel syndrome, Denies nausea, Den ies vomiting, Denies abdominal pain - Endocrine ROS: Denies polydipsia, Denies excessive sweating. Denies hot flash es. Denies Thyroid disease - Hematological and Lymphatic ROS: Denies easy bruisability , Denies current ane jacob, Denies adenopathy in the inguinal area - Neurological ROS: Denies syncope, Denies numbness in lower extremities, Denies neuropathy. Denies shooting pain down the legs, Denies shooting pain in the low er back, Denies low back pain - Musculoskeletal ROS: Denies Joint pain. Denies Edema in lower extremities. Den ies fibromyalgia - Psychological ROS: Denies depression, Denies anxiety, Denies thoughts of suici de, Denies thoughts of homicide, Denies recent seizure, Denies syncope - Dermatological ROS: Denies eczema. Denies skin rashes in the groin area and ot her sites documented in this encounter Plan of Treatment Not on filedocumented as of this encounter Visit Diagnoses Diagnosis Vaginal atrophy - Primary Postmenopausal atrophic vaginitis Mixed stress and urge urinary incontine nce Mixed incontinence urge and stress (mal e)(female) documented in this encounter Discontinued Medications Start Date End Date Medication Sig Discontinue Reason 05/08/2020 12/19/2020 methenamine hippurate 1 TAKE 1 Per Provider gram tabIndications: TABLET BY Overactive bladder, Mixed MOUTH DAILY stress and urge urinary incontinence documented as of this encounter Additional Health Concerns Assessment Noted Time PHQ-9 Depression Total Score: 0 11/10/2018 1:36 PM CDT A fall risk assessment has been completed for the pat ient 07/31/2020 1:28 PM CDT A Body Mass Index follow-up plan has been documented for the patient 05/02/2019 3:45 PM [employer] PHQ-2 Depression Total Score: 0 12/19/2020 10:52 AM CDT documented as of this encounter
--- OUTSIDE RECORDS SUMMARY | 2021-01-08 13:44 | XMS REPORT | Clinical Summary ---
Author Author [facility] Organization [facility] Address Unknown Phone Unavailable Care Team Providers Care Photovoltaic Installation Technician Name Role Phone Luiz Bowen MD Unavailable Carlitos GARCIA MD, Leland Unavailable Mary Velasquez MD Unavailable Unavailable Raul Little MD Unavailable Unavailable Amaris Pederson WIRELESS CONSULTANT-BEST SECOND [employer]BS Unavailable Lorne Deleon MD Unavailable Indra Mahan MD PCP Source Comments Some departments are not documenting in the electronic medical record. If you d o not see the information that you expected, contact Release of Information in [facility] [employer] Information Management department at [phone] for further assistan ce in locating additional records.[facility] Allergies Comments Active Allergy Reactions Severity Noted Date Ciprofloxacin NAUSEA AND 01/14/2011 VOMITING Codeine SHORTNESS OF 01/14/2011 BREATH Allergy recorded in SMS: Demerol~Reactions: ITCHING Meperidine Low 01/01/2005 Morphine NAUSEA AND 01/14/2011 VOMITING Allergy recorded in SMS: Percocet~Reactions: NAUSEA Oxycodone-Acetaminophen NAUSEA AND Medium 2004 VOMITING Ropinirole STOMACH UPSET 12/12/2013 Allergy recorded in SMS: Sulfa~Reactions: GI UPSET Sulfa (Sulfonamide Medium 01/01/2005 Antibiotics) Medications End Date Status Medication Sig Dispensed Refills Start Date Active LEVOTHYROXINE SODIUM Take 100 mcg 0 (SYNTHROID by mouth PO)Indications: daily. hypothyroidism Indications: a condition with low thyroid hormone levels Active esomeprazole DR,+, Take 20 mg by 0 (NEXIUM) 40 mg mouth every capsuleIndications: morning. gastroesophageal reflux Indications: disease gastroesophag eal reflux disease Active CALCIUM CARBONATE/VITAMIN Take by 0 D2 (CALCIUM + VITAMIN D mouth daily. PO) 630 calcium 500 vit D Active atorvastatin (LIPITOR) 10 Take 5 mg by 0 mg tabletIndications: mouth daily. hyperlipidemia Indications: excessive fat in the blood Active ALPRAZolam (XANAX) 0.25 Take 0.5 mg 0 mg tablet by mouth every 8 hours as needed for Anxiety. Active furosemide (LASIX) 20 mg Take 40 mg by 0 tabletIndications: mouth twice peripheral edema due to daily. chronic heart failure Indications: accumulation of fluid resulting from chronic heart failure Active rivastigmine (EXELON) 9.5 Apply one 30 patch 5 mg/24 hr transdermal patch to top 9 patch of skin as directed daily. Active traMADol (ULTRAM) 50 mg Take 50 mg by 0 tablet mouth every 6 hours as needed for Pain. Active potassium chloride Take 8 mEq by 0 (KLOR-CON 8) 8 mEq mouth twice tabletIndications: daily. hypokalemia Indications: low amount of potassium in the blood Active Cranberry 500 mg Take 1 0 capIndications: Chronic capsule by UTI mouth daily. Indications: Chronic UTI Active ondansetron (ZOFRAN ODT) Dissolve 4 mg 0 4 mg rapid dissolve by mouth tablet every 8 hours as needed for Nausea or Vomiting. Place on tongue to dissolve. Active L.acid/L.casei/B.bif/B.lo Take 1 tablet 0 n/FOS (PROBIOTIC BLEND by mouth PO) daily. Active hydrocortisone 1 % Apply 0 topical cream topically to affected area twice daily as needed. Active guaifenesin (MUCINEX PO) Take 400 mg 0 by mouth every 4 hours as needed (Congestion). Active cefaclor (CECLOR) 250 mg Take 250 mg 0 06/16 capsuleIndications: by mouth 9 osteomylitis daily. Indications: osteomylitis Active DM/acetaminophen/doxylami Take 2 0 ne (NITE TIME COLD-FLU capsules by PO) mouth every 6 hours as needed (cough). Active aspirin 325 mg tablet Take 325 mg 0 by mouth daily. Take with food. Active senna/docusate Take 1 tablet 0 (SENOKOT-S) 8.6/50 mg by mouth tabletIndications: daily as constipation needed. Indications: constipation Active Folic Acid-Vit B6-Vit B12 Take 1 tablet 90 tablet 3 2.5-25-1 mg tab by mouth 0 daily. Additional Information Patient taking differently: 1 tablet Oral EVERY 48 HOURS, Reported on 02/20/2020 Active ascorbate calcium Take 500 mg 0 (RANULFO-C PO) by mouth daily. Active IPRATROPIUM BROMIDE NA Apply into 0 nose as directed as Needed. Active carbidopa/levodopa CR Take one 90 tablet 3 09/26 (SINEMET CR) 50/200 mg tablet by 0 tabletIndications: mouth at Parkinson disease ([facility]) bedtime daily. Active diclofenac (VOLTAREN) 1 % Apply 4 g 0 topical gel topically to affected area four times daily. Active cefdinir (OMNICEF) 300 mg Take 300 mg 0 capsule by mouth every 12 hours. For 7 days Active PARoxetine (PAXIL) 20 mg Take 1.5 0 02/19 tabletIndications: major tablets by 0 depressive disorder mouth daily. Indications: major depressive disorder Active pramipexole (MIRAPEX) 0.5 Take one 180 tablet 3 mg tabletIndications: tablet by 0 Parkinson disease ([facility]) mouth twice daily. Supper and bedtime 05/02/2021 Active carbidopa/levodopa Take one 270 tablet 3 02 (SINEMET) 25/250 mg tablet by 1 tabletIndications: mouth three idiopathic parkinsonism times daily for 360 days. Indications: Parkinson's disease Active montelukast (SINGULAIR) Take 10 mg by 0 10 mg tablet mouth daily. Active apixaban (ELIQUIS) 2.5 mg Take 2.5 mg 0 tablet by mouth twice daily. Active COQ10 (UBIQUINOL) PO Take 200 mg 0 by mouth daily. gummy Active fluticasone-salmeterol Inhale 1 puff 0 (ADVAIR DISKUS) 250-50 by mouth into mcg/dose inhalation disk the lungs twice daily. Active QUEtiapine XR (SEROQUEL Take one 31 tablet 5 XR) 50 mg tablet tablet by 1 mouth daily. Additional Information Patient taking differently: 50 mg Oral DAILY, Evening, Reported on 07/29/2020 Active mirabegron ER (MYRBETRIQ) Take one 90 tablet 3 50 mg tabletIndications: tablet by 1 Urge incontinence of mouth daily. urine Active estradioL (ESTRING) 2 mg Insert or 1 each 3 0 (7.5 mcg /24 hour) Apply one 1 vaginal ringIndications: each to Vaginal atrophy vaginal area every 90 days. follow package directions Active pimavanserin (NUPLAZID) Take one 90 capsule 1 34 mg capsuleIndications: capsule by 1 Hallucination mouth daily. 12/19/2020 Discontinued (Per Provider) methenamine hippurate 1 TAKE 1 TABLET 30 tablet 2 gram tabIndications: BY MOUTH 1 Overactive bladder, Mixed DAILY stress and urge urinary incontinence Active Problems Problem Noted Date Cerebrovascular accident (CVA) 02/20/2020 Overview: Formatting of this note might be differ ent from the original. 02/13/20 MRI Brain: subacute non hemorr hagic right parietal lobe infarct On ASA L ast Assessment & Plan: Formatting of this note might be differ ent from the original. Patient was referred to stroke clinic. Hallucination 09/27/2019 Last Assessment & Plan: Formatting of this note might be differ ent from the original. Patient was started on Nuplazid (pimava nserin). Side effects of Nuplazid (pimavanserin) were discussed with the patient and she was given a list of common side effects. I have recommended , CBC, chemistry profile, serum B12, urine analysis and methylmalonic acid l evels. At high risk for falls 05/02/2019 Overview: Formatting of this note might be differ ent from the original. 05/02/2019 Falls Risk Score: 11 TUG: Ca nnot do L ast Assessment & Plan: Formatting of this note might be differ ent from the original. I recommended Vit D/Calcium supplementa tion, increase water consumption, use of assistance devices (walker), harlan e safety and regular exercise. Incomplete uterovaginal prolapse 09/23/2017 OAB (overactive bladder) 09/23/2017 Parkinson disease 11/18/2015 Overview: Formatting of this note might be differ ent from the original. Symptoms began in 2013, initial symptom s was gait problem. Diagnosed with Parkinson's disease in 2015. Atypical P D Features: Tremor Absent and Symmetrical Onset 11/18/2015 Total Mentation Score: 1 Tota l Activities of Daily Living Score: 7 Total Motor Exam: 29 Total UPDRS Scor e: 37 PDQ Total Percent: 31.41 % 03/09/2016 PDQ8 Total %: 25 06/21/2017 Moved to assistive living 12/21/2017 PDQ8 Total %: 25 05/02/2019 PDQ8 Total %: 28 L ast Assessment & Plan: Formatting of this note might be differ ent from the original. Symptoms are worse since the last visit due to stroke but no medication changes were recommended during the cur rent visit. Depression 11/18/2015 Overview: Formatting of this note might be differ ent from the original. 11/18/2015 Geriatric Depression Scale: 1 5 03/09/2016 Improved with Paxil (paroxet ine) L ast Assessment & Plan: Formatting of this note might be differ ent from the original. Her symptoms are stable. No medication changes were recommended during the current visit. PD Dementia 11/18/2015 Overview: Formatting of this note might be differ ent from the original. 11/18/2015 MOCA Score (out of 30): 23 05/02/2019 On Exelon (rivastigmine) 05/02/2019 MOCA Score (out of 30): 17 L ast Assessment & Plan: Formatting of this note might be differ ent from the original. Symptoms are worse since the last visit but no medication changes were recommended during the current visit. Restless legs syndrome (RLS) 11/18/2015 Overview: Formatting of this note might be differ ent from the original. On Neupro (rotigotine) L ast Assessment & Plan: Formatting of this note might be differ ent from the original. Her symptoms are stable. No medication changes were recommended during the current visit. Urge incontinence of urine 01/27/2015 Overview: Formatting of this note might be differ ent from the original. Twin sister jazmining Parkinson's and th is patient has worsening irritative symptoms Given trial of toviaz 4mg-> significant improvement Diagnosed with Parkinson's D in 2015 L ast Assessment & Plan: Formatting of this note might be differ ent from the original. - continue daily miralax and toviaz 4mg Vitamin D deficiency 03/31/2012 Prolapse of uterus 12/21/2011 Overview: Formatting of this note might be differ ent from the original. - Grade 2 apical prolapse managed with pessary. - Pessary last cleaned and changed 03/26 07/10 Patient considering colpocleisis after she assesses response to Parkinson's meds Recommend estrace cream 3 x week, recen tly missed estrace and vaginal stenosis marked. Notable vaginal epithelial irritation w ith it and pessary left out to heal Resized to a size 3 ring pessary with s anson Castillo ast Assessment & Plan: Formatting of this note might be differ ent from the original. - Rx for new pessary given - estrace tiw - rtc w/ new pessary for fitting. 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 Diagnosed by DXA dating back to 1999 at [facility] Fracture History 2000 Distal Tibia/Fibia fracture req uired ORIF Dr. Estrella. A fall down steps 2005 Metatarsal fracture right foot with minimal trauma Contributing diagnosis Menarche age 11 Menopause age 39 na turally Estrogen replacement not taken Hypercalciuria Parental hip fracture: None but her mother had osteoporosis Glucocorticoid therapy: No prolonged glucocorticoid therapy Renal stone history: None Smoking history: Began age 24 stopp ed age 62 Alcohol drinks per week: None at pr esent prior rare only Osteoporosis Treatment Actonel 5-6 years Boniva 3 years Boniva stopped Dec 2010 due to theresa th of therapy and stability of bone density Prolia 07/23/2014, 01/23/2015, 6, 08/10/2016, 02/08/2017 Last Assessment & Plan: Formatting of this note might be differ ent from the original. Hypothyroidism 01/15/2011 Breast cancer 01/15/2011 Overview: Formatting of this note might be differ ent from the original. Previously received chemotherapy and ra diation therapy Followed at [facility] Breast clinic. L ast Assessment & Plan: Formatting of this note might be differ ent from the original. Encounters Care Team Description Date Type Specialty Hand, Arline Castillo PA-C Vaginal atrophy (Primary Dx); Mixed stress and urge urinary incontinence 12/19/2020 Office Visit Uro Educational Program Assistant 12/19/2020 Travel Lorne Deleon MD Hallucination 11/20/2020 Refill Neurology Sherri Alcantar PHARMD Medication Follow-up 10/24/2020 Telephone Neurology from Last 3 Months Immunizations Name Administration Dates Next Due FLU VACCINE >3YO 03/31/2012 (Preservative Free) Flu Vaccine Quadrivalent 06/21/2014 =>3 Yo (Preservative Free) Flu Vaccine Trivalent =>3 04/06/2013 YO Surgical History Surgery Date Site/Laterality Comments HX APPENDECTOMY 08/1947 HEMORRHOIDECTOMY 01/1965 BREAST LUMPECTOMY 11/1997 BONE GRAFT 2000 OTHER SURGICAL HISTORY Right right lower ex tremity surgeries, external fixation Medical History Medical History Date Comments Breast CA (HCC) 1997 left Femur fracture (HCC) 11/2000 compound/right Osteoporosis post menopausal Hypercalciuria Hypothyroid Degenerative, intervertebral disc Vitamin D deficiency GERD (gastroesophageal reflux disease) Vaginal prolapse anterior, apical Hiatal hernia Hyperlipidemia RLS (restless legs syndrome) Muscle spasm 04/28/14 Cataract Generalized headaches Parkinson's disease (HCC) Hiatal hernia Family History Medical History Relation Name Comments None Reported Father Heart Attack Mother Parkinson's Other Maternal uncle Diabetes Other Dementia Sister Parkinson's Sister Tremor Sister Cancer-Breast Neg Hx Cancer-Colon Neg Hx Cancer-Ovarian Neg Hx Cancer-Uterine Neg Hx Cervical Cancer Neg Hx Relation Name Status Comments Father Mother Other Maternal Other uncle Other Other Sister Other Social History Date Tobacco Use Types Packs/Day Years Used Quit: 02/28/1997 Former Smoker Cigarettes 0.5 40 Smokeless Tobacco: Never Used Tobacco Cessation: Counseling Given: No Comments Alcohol Use Standard Drinks/Week quit 1996 [...] or suspected to have Coronavirus / COVID-19? Obstetrics History Term Pre Abrt (TAB) (SAB) (Ect) Mult Lvng Comments Grav Para 4 4 4 4 Date GA Total Labor Labor/2nd/3rd Weight Sex Delivery Anes PTL Miesha A1 A5 Name Clin Outcome Term Term Term Term Last Filed Vital Signs Reading Time Taken [...] 12/19/2020 10:48 AM CDT Body Mass Index Plan of Treatment Health Maintenance Due Date Last Done Comments MEDICARE ANNUAL WELLNESS 1934 VISIT DTAP/TDAP VACCINES (1 - 02/15/1952 Tdap) PHYSICAL (COMPREHENSIVE) 02/15/1952 EXAM SHINGLES RECOMBINANT 02/15/1984 VACCINE (1 of 2) PNEUMONIA (PPSV23) 1999 VACCINE (1 of 1 - PPSV23) INFLUENZA VACCINE 01/24/2021 12/25/2016 (Previously completed), 01/21/2016, 01/21/2016 (Previously completed), Additional history exists OSTEOPOROSIS Completed 12/30/2017, SCREENING/MONITORING 08/15/2015, 06/25/2014, Additional history exists Results Not on filefrom Last 3 Months Insurance Type Payer Benefit Subscriber ID Effective Phone Address Plan / Dates Group Medicare MEDICARE MEDICARE [id number] 1999- PART A AND Present B PPO [facility] [id number] 2014-P SUPPLEMENT resent (Home) [facility] [place] [id number] Advance Directives Patient Night Filler Explanation Type Date Recorded Advance Directive/DPOA Advance Directives 12/13/2012 2:38 PM and Living Will Advance Directives 12/15/2011 1:20 PM and Living Will Advance Directives 12/09/2010 12:00 AM and Living Will
[2021-01-08] MEDS ORDERED: RT-HYPERTONIC SALINE 3% 4 ML NEB IH ONE (13:45)
[2021-01-08] MEDS ORDERED: RT-epiNEPHrine (RACEMIC) 2.25% 0.5 ML VIAL INH ONE (13:45)
--- OUTSIDE RECORDS SUMMARY | 2021-01-08 13:45 | XMS REPORT | Encounter Summary ---
Author Author [facility] Organization [facility] Address Unknown Phone Unavailable Care Team Providers Care Taker Away Name Role Phone Luiz Bowen MD Unavailable Carlitos GARCIA MD, Leland Unavailable Mary Velasquez MD Unavailable Unavailable Raul Little MD Unavailable Unavailable Amaris Pederson CARPENTRY FOREMAN-TIN ASSORTER Unavailable Lorne Deleon MD Unavailable Indra Mahan MD PCP Reason for Visit * Reason Comments Medication Refill Encounter Details Care Team Description Date Type Department Lorne Deleon MD [address] [place] [address] Hallucination 11/20/2020 Refill Neurology: [facility] [address] [place] [address] Social History Date Tobacco Use Types Packs/Day [...] Date Recorded Female 01/11/2020 4:35 PM CDT documented as of this encounter Functional Status [...] impairment: Yes documented as of this encounter Ordered Prescriptions Start Date End Date Prescription Sig Dispensed Refills 11/21/2020 pimavanserin (NUPLAZID) Take one 90 capsule 1 34 mg capsuleIndications: capsule by Hallucination mouth daily. documented in this encounter Miscellaneous Notes * Telephone Encounter - Piper Rivera RN - 11/21/2020 8:57 AM CDT BALTAZAR:02/20/2020 NOV: Per Dr. Deleon's note on 02/20/2020, patient is to continue taking Nuplazid Refills authorized with neurologist co-sign. documented in this encounter Plan of Treatment Not on filedocumented as of this encounter Visit Diagnoses Diagnosis Hallucination Hallucinations documented in this encounter Discontinued Medications Start Date End Date Medication Sig Discontinue Reason 11/23/2019 11/20/2020 pimavanserin (NUPLAZID) Take one Reorder 34 mg cap capsule by capsuleIndications: mouth daily. Hallucination documented as of this encounter Additional Health Concerns Assessment Noted Time PHQ-9 Depression Total Score: 0 11/10/2018 1:36 PM CDT A fall risk assessment has been completed for the pat ient 07/31/2020 1:28 PM CDT A Body Mass Index follow-up plan has been documented for the patient 05/02/2019 3:45 PM COUNTER MAKER PHQ-2 Depression Total Score: 0 02/20/2020 9:52 AM CDT documented as of this encounter
[2021-01-08 13:49] LABS: HEMATOCRIT 45 % (35-52); HEMOGLOBIN 13.8 g/dL (11.5-16.0); MEAN CORPUSCULAR HEMOGLOBIN 29 pg (25-34); MEAN CORPUSCULAR HGB CONC 31 g/dL (32-36); MEAN CORPUSCULAR VOLUME 94 fL (80-99); PLATELET COUNT 198 10^3/uL (130-400); WHITE BLOOD COUNT 17.5 10^3/uL (4.3-11.0)
[2021-01-08 13:50] LABS: BASOPHILS % (AUTO) 0 % (0-10); EOSINOPHILS % (AUTO) 0 % (0-10); LYMPHOCYTES # (AUTO) 0.3 X 10^3 (1.0-4.0); LYMPHOCYTES % (AUTO) 2 % (12-44); MEAN PLATELET VOLUME 10.6 fL (9.0-12.2); MONOCYTES # (AUTO) 0.6 X 10^3 (0.0-1.0); MONOCYTES % (AUTO) 3 % (0-12); NEUTROPHILS # (AUTO) 16.4 X 10^3 (1.8-7.8); NEUTROPHILS % (AUTO) 94 % (42-75)
[2021-01-08 14:14] LABS: BAND NEUTROPHILS 2 %; BASOPHILS % (MANUAL) 0 %; EOSINOPHILS % (MANUAL) 0 %; LYMPHOCYTES % (MANUAL) 2 %; MONOCYTES % (MANUAL) 10 %; NEUTROPHILS % (MANUAL) 86 %
[2021-01-08] MEDS ORDERED: QUET25TA34 (14:20)
[2021-01-08] MEDS ORDERED: DICL100G13 (14:20)
[2021-01-08] MEDS ORDERED: PARO-49 (14:20)
[2021-01-08] MEDS ORDERED: PRAM0.5T9 (14:20)
[2021-01-08] MEDS ORDERED: RIVA1PAT3 (14:20)
[2021-01-08] MEDS ORDERED: PIMA34CA (14:20)
[2021-01-08] MEDS ORDERED: FLUC150T2 (14:20)
[2021-01-08] MEDS ORDERED: CARB1TAB22 (14:20)
[2021-01-08] MEDS ORDERED: ESTR1VAG (14:20)
[2021-01-08] MEDS ORDERED: APIX2.5T (14:20)
[2021-01-08] MEDS ORDERED: OMEP20CA18 (14:20)
[2021-01-08] MEDS ORDERED: MIRA50TA (14:20)
[2021-01-08] MEDS ORDERED: ATOR10TA66 (14:20)
[2021-01-08] MEDS ORDERED: LNZ600T (14:20)
[2021-01-08 14:21] LABS: BILIRUBIN,TOTAL 0.7 MG/DL (0.1-1.0); CALCIUM 9.5 MG/DL (8.5-10.1); CREATININE SERUM 0.94 MG/DL (0.60-1.30); POTASSIUM 4.3 MMOL/L (3.6-5.0)
[2021-01-08] MEDS ORDERED: LEVO100T7 (14:21)
[2021-01-08 14:22] LABS: ALBUMIN 4.1 GM/DL (3.2-4.5); TOTAL PROTEIN 7.2 GM/DL (6.4-8.2)
[2021-01-08] MEDS ORDERED: cefTRIAXone 1,000 MG in WATER (STERILE) FOR INJECTION 10 ML IV ONE (14:30)
[2021-01-08] MEDS ORDERED: AZITHROMYCIN INJECTION 500 MG in NS (IVPB) 250 ML IV ONE (14:30)
--- NOTE | 2021-01-08 14:31 | Diagnostic Imaging Report ---
INDICATION: Cough. Shortness of air. COMPARISON: 10/21/2020. FINDINGS: A single frontal radiographic view of the chest was obtained and demonstrates interval development of large dense consolidation of the right mid and lower lung silva medially. More patchy airspace opacities are also present within the right upper and scattered throughout the left lung. Small effusions cannot be excluded. There is no pneumothorax. The cardiac silhouette is within normal limits. The osseous structures show no gross acute abnormalities. IMPRESSION: Interval development of bilateral infiltrates. Followup to resolution is recommended. Correlation with Covid 19 status is also advised. The report was faxed to Infection Control by deena@2:30 PM. Dictated by: Dictated on workstation # [id number]
[2021-01-08] MEDS ORDERED: NS IV 1000 ML 1,000 ML IV STA (14:50)
[2021-01-08 18:44] VITALS: BP 109/55
[2021-01-08] MEDS ORDERED: CATHETER FLUSH 10 ML SYR IV PRN (19:00)
[2021-01-08] MEDS: NS IV 1000 ML 1,000 ML IV SCH (19:54)
[2021-01-08 20:10] VITALS: BP 100/55
[2021-01-08 23:43] VITALS: BP 129/61
[2021-01-09 04:20] VITALS: BP 95/53
[2021-01-09 05:00] VITALS: BP 137/77
[2021-01-09] MEDS ORDERED: RT-ALBUTEROL/IPRATROPIUM 3 ML (DUONEB) VIAL INH PRN (05:15)
[2021-01-09] MEDS: NS IV 1000 ML 1,000 ML IV SCH (06:00)
[2021-01-09 06:51] LABS: BASOPHILS % (AUTO) 0 % (0-10); EOSINOPHILS % (AUTO) 0 % (0-10); HEMATOCRIT 38 % (35-52); HEMOGLOBIN 11.9 g/dL (11.5-16.0); LYMPHOCYTES # (AUTO) 0.4 10^3/uL (1.0-4.0); LYMPHOCYTES % (AUTO) 2 % (12-44); MEAN CORPUSCULAR HEMOGLOBIN 30 pg (25-34); MEAN CORPUSCULAR HGB CONC 32 g/dL (32-36); MEAN CORPUSCULAR VOLUME 93 fL (80-99); MEAN PLATELET VOLUME 11.3 fL (9.0-12.2); MONOCYTES # (AUTO) 0.3 10^3/uL (0.0-1.0); MONOCYTES % (AUTO) 2 % (0-12); NEUTROPHILS # (AUTO) 15.7 10^3/uL (1.8-7.8); NEUTROPHILS % (AUTO) 95 % (42-75); PLATELET COUNT 184 10^3/uL (130-400); WHITE BLOOD COUNT 16.5 10^3/uL (4.3-11.0)
[2021-01-09 07:18] LABS: ALBUMIN 3.5 GM/DL (3.2-4.5); BILIRUBIN,TOTAL 0.6 MG/DL (0.1-1.0); CALCIUM 9.7 MG/DL (8.5-10.1); CREATININE SERUM 0.85 MG/DL (0.60-1.30); POTASSIUM 4.3 MMOL/L (3.6-5.0); TOTAL PROTEIN 6.2 GM/DL (6.4-8.2)
[2021-01-09] MEDS: RT-ALBUTEROL/IPRATROPIUM 3 ML (DUONEB) VIAL INH SCH ×5 (07:19→20:56)
[2021-01-09 08:00] VITALS: BP 114/56
[2021-01-09 12:00] VITALS: BP 106/60
[2021-01-09] MEDS ORDERED: ALPR0.5T7 PO (13:53)
[2021-01-09] MEDS ORDERED: FURO40TA4 PO (13:59)
[2021-01-09] MEDS ORDERED: ESOM20CA37 PO (14:00)
[2021-01-09] MEDS ORDERED: POTA8TAB2 PO (14:03)
[2021-01-09] MEDS ORDERED: RIVA1PAT3 TD (14:04)
[2021-01-09] MEDS ORDERED: PRAM0.5T2 PO (14:12)
[2021-01-09] MEDS ORDERED: METH1POW32 MC (14:15)
[2021-01-09] MEDS ORDERED: QUET25TA PO (14:18)
[2021-01-09] MEDS ORDERED: CALC1TAB29 PO (14:22)
[2021-01-09] MEDS ORDERED: MONT10TA32 PO (14:23)
[2021-01-09] MEDS ORDERED: APIX2.5T PO (14:24)
[2021-01-09] MEDS ORDERED: ASCO1TAB12 PO (14:25)
[2021-01-09] MEDS ORDERED: MIRA50TA PO (14:26)
[2021-01-09] MEDS ORDERED: ASPI-808 PO (14:28)
[2021-01-09] MEDS: cefTRIAXone 1,000 MG/SWFI 10 ML IV PUSH IV SCH ×2 (14:29)
[2021-01-09] MEDS ORDERED: CARB1TAB22 PO (14:30)
[2021-01-09] MEDS ORDERED: CEFA250C44 PO (14:31)
[2021-01-09] MEDS ORDERED: UBID200C16 PO (14:32)
[2021-01-09] MEDS ORDERED: PARO-49 PO (14:33)
[2021-01-09] MEDS ORDERED: LEVO100C4 PO (14:35)
[2021-01-09] MEDS ORDERED: PIMA34CA PO (14:36)
[2021-01-09] MEDS ORDERED: ATOR10TA66 PO (14:37)
[2021-01-09] MEDS ORDERED: CARB1TAB19 PO (14:39)
[2021-01-09] MEDS ORDERED: CRAN1CAP9 PO (14:43)
[2021-01-09] MEDS ORDERED: L.AC1CAP6 PO (14:46)
[2021-01-09] MEDS ORDERED: D ME PO (14:53)
[2021-01-09] MEDS ORDERED: GUAI400T86 PO (14:56)
[2021-01-09] MEDS ORDERED: IPRA3AMP31 IH (14:59)
[2021-01-09] MEDS ORDERED: SODI15DR7 OU (15:00)
[2021-01-09] MEDS ORDERED: AZITHROMYCIN 500 MG/NS 250 ML IVPB IV SCH ×2 (15:00)
[2021-01-09] MEDS ORDERED: DICL20GE TP (15:02)
[2021-01-09] MEDS ORDERED: FLUT1DIS26 IH (15:04)
[2021-01-09] MEDS ORDERED: CARB-254 OP (15:05)
[2021-01-09] MEDS ORDERED: POLY15DR27 OU (15:05)
[2021-01-09] MEDS ORDERED: SENN-273 PO (15:08)
[2021-01-09] MEDS ORDERED: DICL100G13 TP (15:09)
[2021-01-09] MEDS ORDERED: POLY17PO6 PO ×3 (15:13→15:28)
[2021-01-09] MEDS ORDERED: CYAN1TAB13 PO (15:29)
[2021-01-09 15:50] VITALS: BP 107/64
--- NOTE | 2021-01-09 15:54 | History & Physical ---
HPI History of Present Illness: 85 yo female presented to ER with shortness of breath and cough. She doesn't think she had fever. She had COVID infection earlier this year and is vaccinated. She is feeling a little better this morning. Source: patient Exam Limitations: clinical condition Date seen by provider: Jan 09, 2021 Time Seen by Provider: 10:15 Attending Physician Naga Nichols MD PCP Self,Indra TAVERA Consult Date of Admission Jan 08, 2021 at 16:20 Home Medications Home Medications Reviewed patient Home Medication Reconciliation performed by pharmacy medication reconciliations central office technician and/or nursing. Patients Allergies have been reviewed. Allergies Coded Allergies: Sulfa (Sulfonamide Antibiotics) (Verified Allergy, Unknown, 02/13/20) acetaminophen (Verified Allergy, Unknown, 02/18/20) ciprofloxacin (Verified Allergy, Unknown, 02/18/20) codeine (Verified Allergy, Unknown, 02/18/20) meperidine (Verified Allergy, Unknown, 02/18/20) oxycodone (Verified Allergy, Unknown, 02/18/20) ropinirole (Verified Allergy, Unknown, 02/18/20) SKW-Wgkxed-Cxrsac Hx Patient Social History Smoking Status: Never a Smoker 2nd Hand Smoke Exposure: No Recent Hopitalizations: No Alcohol Use?: No Have you traveled recently?: No Past Medical History PMHx: pt can only recall HTN, remainder from chart HTN RLS Parkinson disease History of breast cancer Dementia COPD CAD Heart failure GERD SurgHx: Appendectomy (pt thinks others, but cannot recall) Family Medical History Significant Family History: No Pertinent Family Hx Review of Systems (CHC) Constitutional: No fever Respiratory: cough, short of breath Cardiovascular: No chest pain Gastrointestinal: No constipation, No diarrhea, No nausea, No vomiting Reviewed Test Results Reviewed Test Results Lab Laboratory Tests Test 01/08/21 13:40 01/08/21 16:05 01/08/21 19:10 01/09/21 01:35 Range/Units White Blood Count 17.5 H 4.3-11.0 10^3/uL Red Blood Count 4.78 3.80-5.11 10^6/uL Hemoglobin 13.8 11.5-16.0 g/dL Hematocrit 45 35-52 % Mean Corpuscular Volume 94 80-99 fL Mean Corpuscular Hemoglobin 29 25-34 pg Mean Corpuscular Hemoglobin Concent 31 L 32-36 g/dL Red Cell Distribution Width 14.5 10.0-14.5 % Platelet Count 198 130-400 10^3/uL Mean Platelet Volume 10.6 9.0-12.2 fL Immature Granulocyte % (Auto) 0 % Neutrophils (%) (Auto) 94 H 42-75 % Lymphocytes (%) (Auto) 2 L 12-44 % Monocytes (%) (Auto) 3 0-12 % Eosinophils (%) (Auto) 0 0-10 % Basophils (%) (Auto) 0 0-10 % Neutrophils # (Auto) 16.4 H 1.8-7.8 X 10^3 Lymphocytes # (Auto) 0.3 L 1.0-4.0 X 10^3 Monocytes # (Auto) 0.6 0.0-1.0 X 10^3 Eosinophils # (Auto) 0.0 0.0-0.3 10^3/uL Basophils # (Auto) 0.0 0.0-0.1 10^3/uL Immature Granulocyte # (Auto) 0.1 0.0-0.1 10^3/uL Neutrophils % (Manual) 86 % Lymphocytes % (Manual) 2 % Monocytes % (Manual) 10 % Eosinophils % (Manual) 0 % Basophils % (Manual) 0 % Band Neutrophils 2 % Sodium Level 137 135-145 MMOL/L Potassium Level 4.3 3.6-5.0 MMOL/L Chloride Level 94 L 98-107 MMOL/L Carbon Dioxide Level 30 21-32 MMOL/L Anion Gap 13 5-14 MMOL/L Blood Urea Nitrogen 16 7-18 MG/DL Creatinine 0.94 0.60-1.30 MG/DL Estimat Glomerular Filtration Rate 56 BUN/Creatinine Ratio 17 Glucose Level 119 H 70-105 MG/DL Lactic Acid Level 3.08 *H 2.24 *H 2.29 *H 2.08 *H 0.50-2.00 MMOL/L Calcium Level 9.5 8.5-10.1 MG/DL Corrected Calcium 9.4 8.5-10.1 MG/DL Total Bilirubin 0.7 0.1-1.0 MG/DL Aspartate Amino Transf (AST/SGOT) 30 5-34 U/L Alanine Aminotransferase (ALT/SGPT) 8 0-55 U/L Alkaline Phosphatase 81 40-136 U/L C-Reactive Protein 3.67 H <0.50 MG/DL Pro-B-Type Natriuretic Peptide 522.0 H <75.0 PG/ML Total Protein 7.2 6.4-8.2 GM/DL Albumin 4.1 3.2-4.5 GM/DL Coronavirus (COVID-19)(PCR) Negative Negative Test 01/09/21 03:36 01/09/21 06:20 Range/Units Lactic Acid Level 1.54 0.50-2.00 MMOL/L White Blood Count 16.5 H 4.3-11.0 10^3/uL Red Blood Count 4.04 3.80-5.11 10^6/uL Hemoglobin 11.9 11.5-16.0 g/dL Hematocrit 38 35-52 % Mean Corpuscular Volume 93 80-99 fL Mean Corpuscular Hemoglobin 30 25-34 pg Mean Corpuscular Hemoglobin Concent 32 32-36 g/dL Red Cell Distribution Width 14.5 10.0-14.5 % Platelet Count 184 130-400 10^3/uL Mean Platelet Volume 11.3 9.0-12.2 fL Immature Granulocyte % (Auto) 1 % Neutrophils (%) (Auto) 95 H 42-75 % Lymphocytes (%) (Auto) 2 L 12-44 % Monocytes (%) (Auto) 2 0-12 % Eosinophils (%) (Auto) 0 0-10 % Basophils (%) (Auto) 0 0-10 % Neutrophils # (Auto) 15.7 H 1.8-7.8 10^3/uL Lymphocytes # (Auto) 0.4 L 1.0-4.0 10^3/uL Monocytes # (Auto) 0.3 0.0-1.0 10^3/uL Eosinophils # (Auto) 0.0 0.0-0.3 10^3/uL Basophils # (Auto) 0.0 0.0-0.1 10^3/uL Immature Granulocyte # (Auto) 0.1 0.0-0.1 10^3/uL Sodium Level 141 135-145 MMOL/L Potassium Level 4.3 3.6-5.0 MMOL/L Chloride Level 105 98-107 MMOL/L Carbon Dioxide Level 26 21-32 MMOL/L Anion Gap 10 5-14 MMOL/L Blood Urea Nitrogen 21 H 7-18 MG/DL Creatinine 0.85 0.60-1.30 MG/DL Estimat Glomerular Filtration Rate 63 BUN/Creatinine Ratio 25 Glucose Level 101 70-105 MG/DL Calcium Level 9.7 8.5-10.1 MG/DL Corrected Calcium 10.1 8.5-10.1 MG/DL Total Bilirubin 0.6 0.1-1.0 MG/DL Aspartate Amino Transf (AST/SGOT) 36 H 5-34 U/L Alanine Aminotransferase (ALT/SGPT) 19 0-55 U/L Alkaline Phosphatase 63 40-136 U/L Total Protein 6.2 L 6.4-8.2 GM/DL Albumin 3.5 3.2-4.5 GM/DL Radiology CXR 01/09: IMPRESSION: Interval development of bilateral infiltrates. Followup to resolution is recommended. Correlation with Covid 19 status is also advised. Physical Exam-(CHC) Physical Exam Vital Signs VS - Last 72 Hours, by Label 01/08/21 01/08/21 01/08/21 01/08/21 13:35 13:35 13:44 17:50 Temp 38.6 37.3 Pulse 103 97 Resp 33 21 B/P (MAP) 137/77 (97) 118/63 Pulse Ox 96 92 O2 Delivery Nasal Cannula Nasal Cannula Nasal Cannula Room Air O2 Flow Rate 4.00 2.00 4.00 01/08/21 01/08/21 01/08/21 01/08/21 18:44 19:00 19:51 20:10 Temp 36.4 36.0 Pulse 99 90 99 Resp 24 22 B/P (MAP) 109/55 (73) 100/55 (70) Pulse Ox 97 96 97 O2 Delivery Nasal Cannula Nasal Cannula Nasal Cannula O2 Flow Rate 3.50 4.00 4.00 01/08/21 01/09/21 01/09/21 01/09/21 23:43 01:00 04:20 04:51 Temp 36.4 36.4 Pulse 89 75 67 Resp 24 20 B/P (MAP) 129/61 (83) 95/53 (67) Pulse Ox 96 95 96 O2 Delivery Nasal Cannula Nasal Cannula Nasal Cannula O2 Flow Rate 4.00 4.00 4.00 01/09/21 01/09/21 01/09/21 01/09/21 05:00 06:53 07:19 08:00 Temp 38.6 36.2 Pulse 103 96 101 Resp 22 B/P (MAP) 114/56 (75) Pulse Ox 96 97 93 O2 Delivery Nasal Cannula Nasal Cannula O2 Flow Rate 4.00 4.00 FiO2 36 01/09/21 01/09/21 01/09/21 01/09/21 08:00 11:02 12:00 13:15 Temp 36.4 Pulse 92 96 Resp 20 B/P (MAP) 106/60 (75) Pulse Ox 93 95 97 O2 Delivery Nasal Cannula Nasal Cannula Nasal Cannula O2 Flow Rate 4.00 4.00 4.00 01/09/21 01/09/21 01/09/21 01/09/21 15:18 15:50 19:00 19:15 Temp 36.9 Pulse 97 73 Resp 22 B/P (MAP) 107/64 (78) Pulse Ox 95 96 94 O2 Delivery Nasal Cannula Nasal Cannula Nasal Cannula O2 Flow Rate 4.00 4.50 4.00 01/09/21 01/09/21 01/09/21 19:20 19:55 20:57 Temp 36.6 Pulse 87 Resp 22 B/P (MAP) 124/70 (88) Pulse Ox 93 94 95 O2 Delivery Nasal Cannula Nasal Cannula Nasal Cannula O2 Flow Rate 4.00 4.00 4.00 Capillary Refill : Less Than 3 Seconds General Appearance: WD/WN, no apparent distress Respiratory: rhonchi Cardiovascular: regular rate, rhythm Gastrointestinal: normal bowel sounds, non tender, soft Extremities: no pedal edema Neurologic/Psychiatric: alert, normal mood/affect, other (oriented to self and location, doesn't know date or year) Skin: normal color, warm/dry Assessment/Plan Assessment/Plan Admission Status: Inpatient Order (span 2 midnights) Reason for Inpatient Admission: Sepsis and Pneumonia with multiple underlying comorbidities (1) Pneumonia Status: Acute Assessment & Plan: COVID19 negative. Azithromycin and ceftriaxone. Requiring 4 lpm supplemental oxygen. Qualifiers: Qualified Codes: J18.9 - Pneumonia, unspecified organism (2) Sepsis Status: Acute Assessment & Plan: Elevated WBC, febrile, tachycardic and with elevated lactic acid on admit. LA now normal. Secondary to pneumonia. Qualifiers: Qualified Codes: A41.9 - Sepsis, unspecified organism; R65.20 - Severe sepsis without septic shock (3) Urinary tract infection Status: Acute Assessment & Plan: Recently diagnosed outpatient with Enterococcus with multiple resistances, was on linezolid starting on 01/01, she is not sure if she had finished it. Recheck urine. (4) Parkinson disease Status: Chronic Assessment & Plan: Resume home medications (5) Dementia Status: Chronic (6) Hypertension Status: Chronic (7) History of breast cancer Status: Chronic (8) COPD (chronic obstructive pulmonary disease) Status: Chronic (9) Coronary artery disease Status: Chronic (10) Heart failure Status: Chronic (11) DVT prophylaxis Status: Acute Assessment & Plan: Apixaban. NAGA NICHOLS MD Jan 09, 2021 15:54
[2021-01-09] MEDS ORDERED: ASPI325T32 PO (16:09)
[2021-01-09] MEDS ORDERED: ONDA4TAB11 PO (16:09)
[2021-01-09] MEDS ORDERED: CHLORASEPTIC LOZENGE MM PRN (16:45)
[2021-01-09 19:55] VITALS: BP 124/70
[2021-01-09] MEDS ORDERED: polyethylene glycoL POWDER 17 GM (MIRALAX) PACK PO PRN (21:00)
[2021-01-09] MEDS ORDERED: ONDANSETRON 4 MG (ZOFRAN) ORAL DISSOLVE TAB PO PRN (21:00)
[2021-01-09] MEDS ORDERED: ALPRAZolam 0.5 MG (XANAX) TAB PO PRN (21:00)
[2021-01-09] MEDS: DICLOFENAC 1% GEL 100 GM (VOLTAREN) TUBE TP SCH (22:26)
[2021-01-09] MEDS ORDERED: guaiFENesin SYRUP 100 MG/5 ML 10 ML (ROBITUSSIN SF) PO PRN (22:45)
[2021-01-09] MEDS: polyethylene glycoL POWDER 17 GM (MIRALAX) PACK PO SCH (22:49)
[2021-01-09] MEDS: SINEMET 25/100 (CARBIDOPA/LEVODOPA) TAB PO SCH (22:53)
[2021-01-09] MEDS: APIXABAN 2.5 MG (ELIQUIS) TABLET PO SCH (22:53)
[2021-01-09] MEDS: PRAMIPEXOLE 0.5 MG TAB (MIRAPEX) PO SCH (22:53)
[2021-01-09] MEDS: QUEtiapine 100 MG (SEROquel) TAB IMMEDIATE RELEASE PO SCH (22:53)
[2021-01-09] MEDS: FUROSEMIDE 40 MG (LASIX) TAB PO SCH (22:53)
[2021-01-10] VITALS (8 sets, daily range): BP systolic 85–110; BP diastolic 51–72
[2021-01-10 00:04] LABS: BILIRUBIN,URINE NEGATIVE (NEGATIVE); CLARITY,URINE CLEAR; COLOR,URINE YELLOW; GLUCOSE, URINE (UA) NEGATIVE (NEGATIVE); KETONES,URINE NEGATIVE (NEGATIVE); LEUKOCYTE ESTERASE ,URINE NEGATIVE (NEGATIVE); NITRITE,URINE NEGATIVE (NEGATIVE); PROTEIN,URINE NEGATIVE (NEGATIVE)
[2021-01-10 00:16] LABS: BACTERIA,URINE NEGATIVE /HPF
[2021-01-10] MEDS: POTASSIUM CHLORIDE 8 MEQ PO SCH ×2 (00:34→09:00)
[2021-01-10] MEDS: NON-FORMULARY MEDICATION 1 EA EA (Pimavanserin Tartrate (Nuplazid) 34 MG) PO SCH ×2 (00:35→20:05)
[2021-01-10] MEDS: NS IV 1000 ML 1,000 ML IV SCH (01:46)
[2021-01-10] MEDS: RT-ALBUTEROL/IPRATROPIUM 3 ML (DUONEB) VIAL INH SCH ×6 (05:43→22:39)
[2021-01-10] MEDS: SINEMET 25/250 (CARBIDOPA/LEVODOPA) TAB PO SCH ×3 (06:04→16:48)
[2021-01-10] MEDS: LEVOTHYROXINE 100 MCG (LEVOTHROID) TAB PO SCH (06:04)
[2021-01-10] MEDS: PANTOPRAZOLE 20 MG TABLET (PROTONIX) PO SCH (06:04)
[2021-01-10 06:12] LABS: BASOPHILS % (AUTO) 0 % (0-10); EOSINOPHILS % (AUTO) 0 % (0-10); HEMATOCRIT 35 % (35-52); HEMOGLOBIN 10.8 g/dL (11.5-16.0); LYMPHOCYTES # (AUTO) 0.4 10^3/uL (1.0-4.0); LYMPHOCYTES % (AUTO) 4 % (12-44); MEAN CORPUSCULAR HEMOGLOBIN 29 pg (25-34); MEAN CORPUSCULAR HGB CONC 31 g/dL (32-36); MEAN CORPUSCULAR VOLUME 95 fL (80-99); MONOCYTES # (AUTO) 0.5 10^3/uL (0.0-1.0); MONOCYTES % (AUTO) 5 % (0-12); NEUTROPHILS # (AUTO) 9.1 10^3/uL (1.8-7.8); NEUTROPHILS % (AUTO) 90 % (42-75); PLATELET COUNT 143 10^3/uL (130-400); WHITE BLOOD COUNT 10.1 10^3/uL (4.3-11.0)
[2021-01-10 06:29] LABS: ALBUMIN 3.3 GM/DL (3.2-4.5); POTASSIUM 3.6 MMOL/L (3.6-5.0)
[2021-01-10 06:30] LABS: CALCIUM 8.8 MG/DL (8.5-10.1)
[2021-01-10 06:32] LABS: TOTAL PROTEIN 5.8 GM/DL (6.4-8.2)
[2021-01-10 06:33] LABS: BILIRUBIN,TOTAL 0.5 MG/DL (0.1-1.0)
[2021-01-10 06:35] LABS: CREATININE SERUM 0.75 MG/DL (0.60-1.30)
[2021-01-10] MEDS: CEFACLOR PO SCH (09:00)
[2021-01-10] MEDS: NON-FORMULARY MEDICATION 1 EA EA (Rivastigmine (Exelon) 9.5 MG) TD SCH (09:00)
[2021-01-10] MEDS: NON-FORMULARY MEDICATION 1 EA EA (Mirabegron (Myrbetriq) 50 MG) PO SCH (09:00)
[2021-01-10] MEDS: MONTELUKAST 10 MG (SINGULAIR) TAB PO SCH (09:56)
[2021-01-10] MEDS: PARoxetine 20 MG (PAXIL) TAB PO SCH (09:56)
[2021-01-10] MEDS: LACTOBACILLUS ACIDOPHILUS (PROBIOTIC) CAPSULE PO SCH (09:56)
[2021-01-10] MEDS: SENNA W/DOCUSATE (SENOKOT S) TABLET PO SCH (09:56)
[2021-01-10] MEDS: APIXABAN 2.5 MG (ELIQUIS) TABLET PO SCH ×2 (09:57→20:04)
[2021-01-10] MEDS: FUROSEMIDE 40 MG (LASIX) TAB PO SCH ×2 (09:57→16:48)
[2021-01-10] MEDS: ASPIRIN 325 MG (5 GR) TABLET PO SCH (09:57)
[2021-01-10] MEDS: DICLOFENAC 1% GEL 100 GM (VOLTAREN) TUBE TP SCH ×2 (09:59→20:05)
[2021-01-10] MEDS: AZITHROMYCIN 250 MG TAB (ZITHROMAX) PO SCH (10:01)
[2021-01-10] MEDS: RT--FLUTICASONE/SALMETEROL 113-14 (AIRDUO RespiCLICK) IH SCH ×2 (12:00→18:37)
--- NOTE | 2021-01-10 12:00 | Progress Note ---
Subjective Subjective/Events-last exam States she is feeling pretty well, breathing feels better. Focused Exam Lactate Level 01/08/21 19:10: Lactic Acid Level 2.29*H 01/09/21 01:35: Lactic Acid Level 2.08*H 01/09/21 03:36: Lactic Acid Level 1.54 Objective Exam Last Set of Vital Signs Vital Signs Date Time Temp Pulse Resp B/P (MAP) Pulse Ox O2 Delivery O2 Flow Rate FiO2 01/10/21 10:45 95 Nasal Cannula 4.00 01/10/21 08:00 36.1 109 18 110/72 (85) 01/09/21 05:00 36 Capillary Refill : Less Than 3 Seconds I&O Intake and Output 01/10/21 00:00 Intake Total 2160 ml Balance 2160 ml Intake Oral 1160 ml IV Total 1000 ml # Voids 4 # Bowel Movements 3 General: Alert, Mild Distress Lungs: Other (ronchi and wheezing) Heart: Regular Rate Abdomen: Normal Bowel Sounds, Soft Neuro: Normal Speech, Other (oriented to self only, knows she is in the hospital but not what city) Results/Procedures Lab Laboratory Tests 01/09/21 23:51: Urine Color YELLOW, Urine Clarity CLEAR, Urine pH 6.0, Urine Specific [place] 1.020, Urine Protein NEGATIVE, Urine Glucose (UA) NEGATIVE, Urine Ketones NEGATIVE, Urine Nitrite NEGATIVE, Urine Bilirubin NEGATIVE, Urine Urobilinogen 0.2, Urine Leukocyte Esterase NEGATIVE, Urine RBC (Auto) NEGATIVE, Urine RBC NONE, Urine WBC NONE, Urine Squamous Epithelial Cells 2-5, Urine Crystals NONE, Urine Bacteria NEGATIVE, Urine Casts NONE, Urine Mucus NEGATIVE, Urine Culture Indicated NO 01/10/21 06:00: White Blood Count 10.1, Red Blood Count 3.71L, Hemoglobin 10.8L, Hematocrit 35, Mean Corpuscular Volume 95, Mean Corpuscular Hemoglobin 29, Mean Corpuscular Hemoglobin Concent 31L, Red Cell Distribution Width 14.6H, Platelet Count 143, Mean Platelet Volume 11.0, Immature Granulocyte % (Auto) 0, Neutrophils (%) (Auto) 90H, Lymphocytes (%) (Auto) 4L, Monocytes (%) (Auto) 5, Eosinophils (%) (Auto) 0, Basophils (%) (Auto) 0, Neutrophils # (Auto) 9.1H, Lymphocytes # (Auto) 0.4L, Monocytes # (Auto) 0.5, Eosinophils # (Auto) 0.0, Basophils # (Auto) 0.0, Immature Granulocyte # (Auto) 0.0, Sodium Level 142, Potassium Level 3.6, Chloride Level 106, Carbon Dioxide Level 27, Anion Gap 9, Blood Urea Nitrogen 22H, Creatinine 0.75, Estimat Glomerular Filtration Rate 73, BUN/Creatinine Ratio 29, Glucose Level 80, Calcium Level 8.8, Corrected Calcium 9.4, Total Bilirubin 0.5, Aspartate Amino Transf (AST/SGOT) 37H, Alanine Aminotransferase (ALT/SGPT) 6, Alkaline Phosphatase 51, Total Protein 5.8L, Albumin 3.3 Microbiology 01/08/21 Blood Culture - Preliminary, Resulted No growth Radiology CXR 01/09: IMPRESSION: Interval development of bilateral infiltrates. Followup to resolution is recommended. Correlation with Covid 19 status is also advised. Assessment/Plan Assessment/Plan (1) Pneumonia Status: Acute Assessment & Plan: COVID19 negative. Azithromycin and ceftriaxone. Requiring 4 lpm supplemental oxygen. Qualifiers: Qualified Codes: J18.9 - Pneumonia, unspecified organism (2) Sepsis Status: Acute Assessment & Plan: Elevated WBC, febrile, tachycardic and with elevated lactic acid on admit. LA now normal. Secondary to pneumonia. 01/10 leukocytosis resolved Qualifiers: Qualified Codes: A41.9 - Sepsis, unspecified organism; R65.20 - Severe sepsis without septic shock (3) Urinary tract infection Status: Acute Assessment & Plan: Recently diagnosed outpatient with Enterococcus with m ultiple resistances, was on linezolid starting on 01/01, she is not sure if she had finished it. Recheck urine. (4) Parkinson disease Status: Chronic Assessment & Plan: Resume home medications (5) Dementia Status: Chronic (6) History of breast cancer Status: Chronic (7) COPD (chronic obstructive pulmonary disease) Status: Chronic (8) Coronary artery disease Status: Chronic (9) Heart failure Status: Chronic (10) DVT prophylaxis Status: Acute Assessment & Plan: Apixaban. NAGA ZAMUDIO MD Jan 10, 2021 12:00
[2021-01-10] MEDS: AtorvaSTATin TABLET 10 MG TABLET PO SCH (12:47)
[2021-01-10] MEDS ORDERED: ACETAMINOPHEN 325 MG TABLET PO PRN (14:15)
[2021-01-10] MEDS ORDERED: ACETAMINOPHEN 325 MG TABLET ONE (14:17)
[2021-01-10] MEDS ORDERED: cefTRIAXone 1,000 MG VIAL ONE (14:59)
[2021-01-10] MEDS: cefTRIAXone 1,000 MG/SWFI 10 ML IV PUSH IV SCH ×2 (14:59)
[2021-01-10] MEDS: KCL 8 MEQ (MICRO K) TABLET PO SCH (16:48)
[2021-01-10] MEDS: PRAMIPEXOLE 0.5 MG TAB (MIRAPEX) PO SCH ×2 (16:52→20:04)
[2021-01-10] MEDS: QUEtiapine 100 MG (SEROquel) TAB IMMEDIATE RELEASE PO SCH (20:04)
[2021-01-10] MEDS: SINEMET 25/100 (CARBIDOPA/LEVODOPA) TAB PO SCH (20:04)
--- NOTE | 2021-01-10 20:36 | Physician Query Clarification ---
Physician Query-General Query to Physician: The medical record reflects the following clinical evidence: Clinical Indicators: Admission RR 33, then consistently 20 -24, SOA at rest per nursing, 02 Sats 91% to 97% on 4L (P/F 172 to 266) Risk Factor(s): Pneumonia, Sepsis, COPD, no documentation of home 02 use Treatment: Supplemental 02 up to 4L, IV ABX, Breathing Rx, 1. Acute respiratory failure with hypoxia, present on admission 2. Other explanation of clinical findings 3. Unable to determine (no explanation for clinical findings) Please clarify and document your clinical opinion in the progress notes and discharge summary including the definitive and/or presumptive diagnosis, (suspected or probable), related to the above clinical findings. Please include clinical findings supporting your diagnosis. Xiao Guerrero MSN, RN Clinical Research Interviewer [phone] [email or web address] PHYSICIAN RESPONSE: Based on the clinical findings in the record, please respond to the query above on this document as an addendum. Physician Response: Physician Response 1 If you have questions please contact: Avionics Mechanic: Ext: Thank you for your time and cooperation. Clinical Research Interviewer/Avionics Mechanic This is a permanent part of the medical record XIAO GUERRERO Jan 10, 2021 20:36 NAGA ZAMUDIO MD Jan 10, 2021 22:14
[2021-01-11] MEDS: RT-ALBUTEROL/IPRATROPIUM 3 ML (DUONEB) VIAL INH SCH ×6 (01:53→22:09)
[2021-01-11 03:59] VITALS: BP 106/59
[2021-01-11] MEDS: RT--FLUTICASONE/SALMETEROL 113-14 (AIRDUO RespiCLICK) IH SCH ×2 (06:39→22:09)
[2021-01-11 07:02] LABS: BASOPHILS % (AUTO) 0 % (0-10)
[2021-01-11 07:04] LABS: EOSINOPHILS # (AUTO) 0.1 10^3/uL (0.0-0.3); EOSINOPHILS % (AUTO) 1 % (0-10); HEMATOCRIT 35 % (35-52); HEMOGLOBIN 11.1 g/dL (11.5-16.0); LYMPHOCYTES # (AUTO) 0.5 10^3/uL (1.0-4.0); LYMPHOCYTES % (AUTO) 5 % (12-44); MEAN CORPUSCULAR HEMOGLOBIN 29 pg (25-34); MEAN CORPUSCULAR HGB CONC 31 g/dL (32-36); MEAN CORPUSCULAR VOLUME 93 fL (80-99); MEAN PLATELET VOLUME 11.6 fL (9.0-12.2); MONOCYTES # (AUTO) 0.7 10^3/uL (0.0-1.0); MONOCYTES % (AUTO) 7 % (0-12); NEUTROPHILS # (AUTO) 8.8 10^3/uL (1.8-7.8); NEUTROPHILS % (AUTO) 87 % (42-75); PLATELET COUNT 121 10^3/uL (130-400); WHITE BLOOD COUNT 10.1 10^3/uL (4.3-11.0)
[2021-01-11 07:22] LABS: ALBUMIN 3.3 GM/DL (3.2-4.5); POTASSIUM 3.8 MMOL/L (3.6-5.0)
[2021-01-11] MEDS: LEVOTHYROXINE 100 MCG (LEVOTHROID) TAB PO SCH (07:24)
[2021-01-11] MEDS: PANTOPRAZOLE 20 MG TABLET (PROTONIX) PO SCH (07:24)
[2021-01-11] MEDS: SINEMET 25/250 (CARBIDOPA/LEVODOPA) TAB PO SCH ×3 (07:24→15:37)
[2021-01-11 07:25] LABS: TOTAL PROTEIN 6.1 GM/DL (6.4-8.2)
[2021-01-11 07:27] LABS: BILIRUBIN,TOTAL 0.8 MG/DL (0.1-1.0)
[2021-01-11 07:28] LABS: CREATININE SERUM 0.66 MG/DL (0.60-1.30)
[2021-01-11 08:00] VITALS: BP 125/79
[2021-01-11] MEDS: MONTELUKAST 10 MG (SINGULAIR) TAB PO SCH (08:51)
[2021-01-11] MEDS: AZITHROMYCIN 250 MG TAB (ZITHROMAX) PO SCH (08:51)
[2021-01-11] MEDS: ASPIRIN 325 MG (5 GR) TABLET PO SCH (08:51)
[2021-01-11] MEDS: APIXABAN 2.5 MG (ELIQUIS) TABLET PO SCH ×2 (08:51→20:26)
[2021-01-11] MEDS: KCL 8 MEQ (MICRO K) TABLET PO SCH ×2 (08:51→17:12)
[2021-01-11] MEDS: PARoxetine 20 MG (PAXIL) TAB PO SCH (08:51)
[2021-01-11] MEDS: LACTOBACILLUS ACIDOPHILUS (PROBIOTIC) CAPSULE PO SCH (08:51)
[2021-01-11] MEDS: SENNA W/DOCUSATE (SENOKOT S) TABLET PO SCH (08:51)
[2021-01-11] MEDS: FUROSEMIDE 40 MG (LASIX) TAB PO SCH ×2 (08:51→15:32)
[2021-01-11] MEDS: NON-FORMULARY MEDICATION 1 EA EA (Rivastigmine (Exelon) 9.5 MG) TD SCH (10:11)
[2021-01-11] MEDS: CEFACLOR PO SCH (10:11)
[2021-01-11] MEDS: NON-FORMULARY MEDICATION 1 EA EA (Mirabegron (Myrbetriq) 50 MG) PO SCH (10:11)
[2021-01-11] MEDS: DICLOFENAC 1% GEL 100 GM (VOLTAREN) TUBE TP SCH ×2 (10:12→21:42)
--- NOTE | 2021-01-11 11:11 | Progress Note - Hospitalist ---
Subjective HPI/CC On Admission Date Seen by Provider: Jan 11, 2021 Time Seen by Provider: 11:00 Subjective/Events-last exam Patient reports that she is feeling better confused but denies shortness of breath at rest denies night sweats chills or fever. Pleasant without evidence for agitation at the time of the interview. Focused Exam Lactate Level 01/08/21 19:10: Lactic Acid Level 2.29*H 01/09/21 01:35: Lactic Acid Level 2.08*H 01/09/21 03:36: Lactic Acid Level 1.54 Objective Exam Vital Signs Vital Signs Date Time Temp Pulse Resp B/P (MAP) Pulse Ox O2 Delivery O2 Flow Rate FiO2 01/11/21 10:59 90 High Flow N/C 8.00 01/11/21 08:00 37.4 82 20 125/79 (94) 01/09/21 05:00 36 Capillary Refill : Less Than 3 Seconds General Appearance: No Apparent Distress Respiratory: No Accessory Muscle Use, No Respiratory Distress, Other (Scattered rhonchi faint expiratory wheeze) Cardiovascular: Regular Rate, Rhythm, No Murmur Results/Procedures Lab Laboratory Tests 01/11/21 06:29 Patient resulted labs reviewed. Assessment/Plan Assessment and Plan Assess & Plan/Chief Complaint (1) Pneumonia Status: Acute Assessment & Plan: COVID19 negative. Azithromycin and ceftriaxone. Requiring 4 lpm supplemental oxygen. Qualifiers: Qualified Codes: J18.9 - Pneumonia, unspecified organism 01/11 pneumonia clinically responding continue bronchodilator therapy and antibiotics. (2) Sepsis Status: Acute Assessment & Plan: Elevated WBC, febrile, tachycardic and with elevated lactic acid on admit. LA now normal. Secondary to pneumonia. 01/10 leukocytosis resolved Qualifiers: Qualified Codes: A41.9 - Sepsis, unspecified organism; R65.20 - Severe sepsis without septic shock (3) Urinary tract infection Status: Acute Assessment & Plan: Recently diagnosed outpatient with Enterococcus with multiple resistances, was on linezolid starting on 01/01, she is not sure if she had finished it. Recheck urine. (4) Parkinson disease Status: Chronic Assessment & Plan: Resume home medications (5) Dementia Status: Chronic (6) History of breast cancer Status: Chronic (7) COPD (chronic obstructive pulmonary disease) Status: Chronic (8) Coronary artery disease Status: Chronic (9) Heart failure Status: Chronic (10) DVT prophylaxis Status: Acute Assessment & Plan: Apixaban. AGAPITO VELEZ MD Jan 11, 2021 11:11
[2021-01-11] MEDS: AtorvaSTATin TABLET 10 MG TABLET PO SCH (11:48)
[2021-01-11 12:00] VITALS: BP 130/67
[2021-01-11] MEDS: cefTRIAXone 1,000 MG/SWFI 10 ML IV PUSH IV SCH ×2 (15:32)
[2021-01-11 16:36] VITALS: BP 107/59
[2021-01-11] MEDS: PRAMIPEXOLE 0.5 MG TAB (MIRAPEX) PO SCH ×2 (17:12→20:26)
[2021-01-11 20:26] VITALS: BP 120/71
[2021-01-11] MEDS: SINEMET 25/100 (CARBIDOPA/LEVODOPA) TAB PO SCH (20:26)
[2021-01-11] MEDS: QUEtiapine 100 MG (SEROquel) TAB IMMEDIATE RELEASE PO SCH (20:26)
[2021-01-11] MEDS: polyethylene glycoL POWDER 17 GM (MIRALAX) PACK PO SCH (21:42)
[2021-01-11] MEDS: NON-FORMULARY MEDICATION 1 EA EA (Pimavanserin Tartrate (Nuplazid) 34 MG) PO SCH (21:42)
[2021-01-12] VITALS (7 sets, daily range): BP systolic 94–112; BP diastolic 58–71
[2021-01-12] MEDS: RT-ALBUTEROL/IPRATROPIUM 3 ML (DUONEB) VIAL INH SCH ×4 (02:39→20:48)
[2021-01-12] MEDS: LEVOTHYROXINE 100 MCG (LEVOTHROID) TAB PO SCH (05:27)
[2021-01-12] MEDS: PANTOPRAZOLE 20 MG TABLET (PROTONIX) PO SCH (05:27)
[2021-01-12] MEDS: SINEMET 25/250 (CARBIDOPA/LEVODOPA) TAB PO SCH ×3 (05:27→15:12)
[2021-01-12 05:38] LABS: BASOPHILS % (AUTO) 0 % (0-10); EOSINOPHILS # (AUTO) 0.2 10^3/uL (0.0-0.3); EOSINOPHILS % (AUTO) 3 % (0-10); HEMATOCRIT 36 % (35-52); HEMOGLOBIN 11.3 g/dL (11.5-16.0); LYMPHOCYTES # (AUTO) 0.6 10^3/uL (1.0-4.0); LYMPHOCYTES % (AUTO) 6 % (12-44); MEAN CORPUSCULAR HEMOGLOBIN 29 pg (25-34); MEAN CORPUSCULAR HGB CONC 32 g/dL (32-36); MEAN CORPUSCULAR VOLUME 92 fL (80-99); MEAN PLATELET VOLUME 10.9 fL (9.0-12.2); MONOCYTES # (AUTO) 1.1 10^3/uL (0.0-1.0); MONOCYTES % (AUTO) 12 % (0-12); NEUTROPHILS # (AUTO) 7.4 10^3/uL (1.8-7.8); NEUTROPHILS % (AUTO) 78 % (42-75); PLATELET COUNT 104 10^3/uL (130-400); WHITE BLOOD COUNT 9.5 10^3/uL (4.3-11.0)
[2021-01-12 05:50] LABS: ALBUMIN 3.2 GM/DL (3.2-4.5); POTASSIUM 3.8 MMOL/L (3.6-5.0)
[2021-01-12 05:51] LABS: CALCIUM 9.3 MG/DL (8.5-10.1)
[2021-01-12 05:53] LABS: TOTAL PROTEIN 6.1 GM/DL (6.4-8.2)
[2021-01-12 05:54] LABS: BILIRUBIN,TOTAL 0.7 MG/DL (0.1-1.0)
[2021-01-12 05:56] LABS: CREATININE SERUM 0.69 MG/DL (0.60-1.30)
[2021-01-12] MEDS: RT--FLUTICASONE/SALMETEROL 113-14 (AIRDUO RespiCLICK) IH SCH ×2 (07:29→20:48)
[2021-01-12] MEDS: LACTOBACILLUS ACIDOPHILUS (PROBIOTIC) CAPSULE PO SCH (08:00)
[2021-01-12] MEDS: SENNA W/DOCUSATE (SENOKOT S) TABLET PO SCH (08:00)
[2021-01-12] MEDS: ASPIRIN 325 MG (5 GR) TABLET PO SCH (08:01)
[2021-01-12] MEDS: APIXABAN 2.5 MG (ELIQUIS) TABLET PO SCH ×2 (08:01→20:44)
[2021-01-12] MEDS: PARoxetine 20 MG (PAXIL) TAB PO SCH (08:01)
[2021-01-12] MEDS: KCL 8 MEQ (MICRO K) TABLET PO SCH ×2 (08:01→17:33)
[2021-01-12] MEDS: AZITHROMYCIN 250 MG TAB (ZITHROMAX) PO SCH (08:01)
[2021-01-12] MEDS: FUROSEMIDE 40 MG (LASIX) TAB PO SCH ×2 (08:01→15:12)
[2021-01-12] MEDS: MONTELUKAST 10 MG (SINGULAIR) TAB PO SCH (08:01)
[2021-01-12] MEDS: DICLOFENAC 1% GEL 100 GM (VOLTAREN) TUBE TP SCH ×2 (08:03→20:44)
[2021-01-12] MEDS: CEFACLOR PO SCH (09:49)
[2021-01-12] MEDS: NON-FORMULARY MEDICATION 1 EA EA (Mirabegron (Myrbetriq) 50 MG) PO SCH (09:49)
[2021-01-12] MEDS: NON-FORMULARY MEDICATION 1 EA EA (Rivastigmine (Exelon) 9.5 MG) TD SCH (09:49)
--- NOTE | 2021-01-12 12:19 | Progress Note - Hospitalist ---
Subjective HPI/CC On Admission Date Seen by Provider: Jan 12, 2021 Time Seen by Provider: 11:45 Subjective/Events-last exam Patient more alert today able to feed herself per staff she reports that she is feeling better voices no complaints loose cough predominantly nonproductive. Denies chills or fever. Oriented x1 likely baseline. Very pleasant no agitation. Objective Exam Vital Signs Vital Signs Date Time Temp Pulse Resp B/P (MAP) Pulse Ox O2 Delivery O2 Flow Rate FiO2 01/12/21 08:00 92 High Flow N/C 8.00 01/12/21 07:42 36.8 90 22 100/62 (75) 01/09/21 05:00 36 Capillary Refill : Less Than 3 Seconds General Appearance: No Apparent Distress Respiratory: No Accessory Muscle Use, No Respiratory Distress, Other (Rhonchi with coarse breath sounds to the mid lung silva posteriorly no wheezing noted.) Cardiovascular: Regular Rate, Rhythm, No Gallop, No Murmur Results/Procedures Lab Laboratory Tests 01/12/21 05:28 Patient resulted labs reviewed. Assessment/Plan Assessment and Plan Assess & Plan/Chief Complaint (1) Pneumonia Status: Acute Assessment & Plan: COVID19 negative. Azithromycin and ceftriaxone. Requiring 4 lpm supplemental oxygen. Qualifiers: Qualified Codes: J18.9 - Pneumonia, unspecified organism 01/11 pneumonia clinically responding continue bronchodilator therapy and antibiotics. 01/12 pneumonia clinically improving continue above. Will DC telemetry. (2) Sepsis Status: Acute Assessment & Plan: Elevated WBC, febrile, tachycardic and with elevated lactic acid on admit. LA now normal. Secondary to pneumonia. 01/10 leukocytosis resolved Qualifiers: Qualified Codes: A41.9 - Sepsis, unspecified organism; R65.20 - Severe sepsis without septic shock (3) Urinary tract infection Status: Acute Assessment & Plan: Recently diagnosed outpatient with Enterococcus with multiple resistances, was on linezolid starting on 01/01, she is not sure if she had finished it. Recheck urine. (4) Parkinson disease Status: Chronic Assessment & Plan: Resume home medications (5) Dementia Status: Chronic (6) History of breast cancer Status: Chronic (7) COPD (chronic obstructive pulmonary disease) Status: Chronic (8) Coronary artery disease Status: Chronic (9) Heart failure Status: Chronic (10) DVT prophylaxis Status: Acute Assessment & Plan: Apixaban. AGAPITO VELEZ MD Jan 12, 2021 12:19
[2021-01-12] MEDS: AtorvaSTATin TABLET 10 MG TABLET PO SCH (12:41)
[2021-01-12] MEDS: cefTRIAXone 1,000 MG/SWFI 10 ML IV PUSH IV SCH ×2 (15:12)
[2021-01-12] MEDS: PRAMIPEXOLE 0.5 MG TAB (MIRAPEX) PO SCH ×2 (17:33→20:44)
[2021-01-12] MEDS: QUEtiapine 100 MG (SEROquel) TAB IMMEDIATE RELEASE PO SCH (20:44)
[2021-01-12] MEDS: NON-FORMULARY MEDICATION 1 EA EA (Pimavanserin Tartrate (Nuplazid) 34 MG) PO SCH (20:44)
[2021-01-12] MEDS: SINEMET 25/100 (CARBIDOPA/LEVODOPA) TAB PO SCH (20:44)
[2021-01-13] VITALS: BP 101/65
[2021-01-13] MEDS: RT-ALBUTEROL/IPRATROPIUM 3 ML (DUONEB) VIAL INH SCH ×4 (02:22→21:28)
[2021-01-13 04:00] VITALS: BP 102/69
[2021-01-13 06:06] LABS: MEAN PLATELET VOLUME 11.4 fL (9.0-12.2)
[2021-01-13 06:08] LABS: BASOPHILS # (AUTO) 0.1 10^3/uL (0.0-0.1); BASOPHILS % (AUTO) 1 % (0-10); EOSINOPHILS # (AUTO) 0.4 10^3/uL (0.0-0.3); EOSINOPHILS % (AUTO) 4 % (0-10); HEMATOCRIT 38 % (35-52); LYMPHOCYTES # (AUTO) 0.9 10^3/uL (1.0-4.0); LYMPHOCYTES % (AUTO) 10 % (12-44); MEAN CORPUSCULAR HEMOGLOBIN 29 pg (25-34); MEAN CORPUSCULAR HGB CONC 32 g/dL (32-36); MEAN CORPUSCULAR VOLUME 92 fL (80-99); MONOCYTES # (AUTO) 1.2 10^3/uL (0.0-1.0); MONOCYTES % (AUTO) 13 % (0-12); NEUTROPHILS # (AUTO) 6.4 10^3/uL (1.8-7.8); NEUTROPHILS % (AUTO) 71 % (42-75); PLATELET COUNT 117 10^3/uL (130-400); WHITE BLOOD COUNT 9.1 10^3/uL (4.3-11.0)
[2021-01-13] MEDS: SINEMET 25/250 (CARBIDOPA/LEVODOPA) TAB PO SCH ×3 (06:15→16:20)
[2021-01-13] MEDS: PANTOPRAZOLE 20 MG TABLET (PROTONIX) PO SCH (06:15)
[2021-01-13] MEDS: LEVOTHYROXINE 100 MCG (LEVOTHROID) TAB PO SCH (06:15)
[2021-01-13 06:36] LABS: ALBUMIN 3.5 GM/DL (3.2-4.5); POTASSIUM 3.8 MMOL/L (3.6-5.0)
[2021-01-13 06:37] LABS: CALCIUM 9.6 MG/DL (8.5-10.1)
[2021-01-13 06:38] LABS: TOTAL PROTEIN 6.8 GM/DL (6.4-8.2)
[2021-01-13 06:40] LABS: BILIRUBIN,TOTAL 0.3 MG/DL (0.1-1.0)
[2021-01-13 06:42] LABS: CREATININE SERUM 0.88 MG/DL (0.60-1.30)
[2021-01-13 08:00] VITALS: BP 108/71
[2021-01-13] MEDS: RT--FLUTICASONE/SALMETEROL 113-14 (AIRDUO RespiCLICK) IH SCH ×2 (09:53→21:28)
[2021-01-13] MEDS: APIXABAN 2.5 MG (ELIQUIS) TABLET PO SCH ×2 (10:09→19:45)
[2021-01-13] MEDS: MONTELUKAST 10 MG (SINGULAIR) TAB PO SCH (10:09)
[2021-01-13] MEDS: ASPIRIN 325 MG (5 GR) TABLET PO SCH (10:09)
[2021-01-13] MEDS: LACTOBACILLUS ACIDOPHILUS (PROBIOTIC) CAPSULE PO SCH (10:09)
[2021-01-13] MEDS: FUROSEMIDE 40 MG (LASIX) TAB PO SCH ×2 (10:09→16:20)
[2021-01-13] MEDS: SENNA W/DOCUSATE (SENOKOT S) TABLET PO SCH (10:10)
[2021-01-13] MEDS: KCL 8 MEQ (MICRO K) TABLET PO SCH ×2 (10:10→17:43)
[2021-01-13] MEDS: PARoxetine 20 MG (PAXIL) TAB PO SCH (10:10)
[2021-01-13] MEDS: DICLOFENAC 1% GEL 100 GM (VOLTAREN) TUBE TP SCH ×2 (10:19→19:46)
[2021-01-13 12:00] VITALS: BP 108/65
--- NOTE | 2021-01-13 12:56 | Progress Note - Hospitalist ---
LILO CALDWELL MED STUDENT 01/13/21 1256: Subjective HPI/CC On Admission Date Seen by Provider: Jan 13, 2021 Time Seen by Provider: 08:00 SOB Subjective/Events-last exam Chantal states she is feeling better. She still requires oxygen at 4 to 5 LPM and states she sometimes uses oxygen at home. She lives at [facility] and loves that. She denies new abdominal pain, fever, chills, constipa tion. Objective Exam Vital Signs Vital Signs Date Time Temp Pulse Resp B/P (MAP) Pulse Ox O2 Delivery O2 Flow Rate FiO2 01/13/21 09:54 92 High Flow N/C 6.00 01/13/21 08:00 36.1 69 20 108/71 (83) 01/09/21 05:00 36 Capillary Refill : Less Than 3 Seconds General Appearance: No Apparent Distress, Chronically ill HEENT: PERRL/EOMI, Moist Mucous Membranes Neck: Full Range of Motion, Normal Inspection Respiratory: Chest Non Tender, No Accessory Muscle Use, No Respiratory Distress; No Crackles; Wheezing (expiratory), Other (coarse breath sounds at bilateral lung bases) Cardiovascular: Regular Rate, Rhythm, No JVD Gastrointestinal: Non Tender, Soft Neurologic/Psychiatric: Alert, Oriented x3 Results/Procedures Lab Laboratory Tests 01/13/21 05:45 Patient resulted labs reviewed. Assessment/Plan Assessment and Plan Assess & Plan/Chief Complaint pneumonia with bilateral infiltrates -covid negative 01/08 -completed Azithromycin, on Rocephin -repeat CXR today -Oxygen still at 4-5 LPM underlying COPD CHF -on lasix 40mg qd Parkinson's disease -on carbidopa/levodopa and pramiprexole DVT/PE prophylaxis -add Lovenox ANDRESSA GEORGE DO 01/14/21 0528: Subjective Subjective/Events-last exam Pt is doing a lot better Covid swab is negative CXR will be ordered PT and OT will be ordered Discontinued catheter Out of bed today Still pretty confused Review of Systems General: Fatigue Pulmonary: Dyspnea Objective Exam General Appearance: No Apparent Distress, WD/WN, Chronically ill Respiratory: No Accessory Muscle Use, No Respiratory Distress, Decreased Breath Sounds, Wheezing (expiratory) Cardiovascular: Regular Rate, Rhythm Neurologic/Psychiatric: Alert, Oriented x3, Disoriented Assessment/Plan Assessment and Plan Assess & Plan/Chief Complaint Pneumonia treatment PT and OT DC catheter Supervisory-Addendum Brief Verification & Attestation Participated in pt care: history, MDM, physical Personally performed: exam, history, MDM, supervision of care Care discussed with: Medical Student Procedures: n/a Results interpretation: Verified all documentation Verification and Attestation of Medical Student E/M Service A medical student performed and documented this service in my presence. I reviewed and verified all information documented by the medical student and made modifications to such information, when appropriate. I personally performed the physical exam and medical decision making. Andressa George, Jan 14, 2021,05:28 LILO CALDWELL MED STUDENT Jan 13, 2021 12:56 ANDRESSA GEORGE DO Jan 14, 2021 05:28
--- NOTE | 2021-01-13 13:09 | Diagnostic Imaging Report ---
INDICATION: Pneumonia. COMPARISON: 01/08/2021. FINDINGS: The heart size is normal. There is a moderately large hiatal hernia. There is bilateral perihilar and bibasilar atelectasis and/or pneumonitis. There is no pleural effusion or pneumothorax. IMPRESSION: Bilateral perihilar and basilar atelectasis and/or pneumonitis. Moderately large hiatal hernia Dictated by: Dictated on workstation # [id number]
[2021-01-13] MEDS: NON-FORMULARY MEDICATION 1 EA EA (Mirabegron (Myrbetriq) 50 MG) PO SCH (13:42)
[2021-01-13] MEDS: CEFACLOR PO SCH (13:42)
[2021-01-13] MEDS: NON-FORMULARY MEDICATION 1 EA EA (Rivastigmine (Exelon) 9.5 MG) TD SCH (13:43)
[2021-01-13] MEDS: AtorvaSTATin TABLET 10 MG TABLET PO SCH (13:53)
[2021-01-13] MEDS ORDERED: ENOXAPARIN 40 MG/0.4 ML (LOVENOX) SYR SC SCH (14:00)
[2021-01-13] MEDS: PRAMIPEXOLE 0.5 MG TAB (MIRAPEX) PO SCH ×2 (16:20→19:47)
[2021-01-13 17:00] VITALS: BP 105/72
[2021-01-13 19:39] VITALS: BP 125/75
[2021-01-13] MEDS: NON-FORMULARY MEDICATION 1 EA EA (Pimavanserin Tartrate (Nuplazid) 34 MG) PO SCH (19:44)
[2021-01-13] MEDS: polyethylene glycoL POWDER 17 GM (MIRALAX) PACK PO SCH (19:45)
[2021-01-13] MEDS: QUEtiapine 100 MG (SEROquel) TAB IMMEDIATE RELEASE PO SCH (19:45)
[2021-01-13] MEDS: SINEMET 25/100 (CARBIDOPA/LEVODOPA) TAB PO SCH (19:45)
[2021-01-14] VITALS (7 sets, daily range): BP systolic 93–120; BP diastolic 51–73
[2021-01-14] MEDS: RT-ALBUTEROL/IPRATROPIUM 3 ML (DUONEB) VIAL INH SCH ×4 (02:24→21:17)
[2021-01-14 05:57] LABS: BASOPHILS # (AUTO) 0.1 10^3/uL (0.0-0.1); BASOPHILS % (AUTO) 1 % (0-10); EOSINOPHILS # (AUTO) 0.5 10^3/uL (0.0-0.3); EOSINOPHILS % (AUTO) 6 % (0-10); HEMATOCRIT 39 % (35-52); HEMOGLOBIN 12.1 g/dL (11.5-16.0); LYMPHOCYTES # (AUTO) 1.1 10^3/uL (1.0-4.0); LYMPHOCYTES % (AUTO) 12 % (12-44); MEAN CORPUSCULAR HEMOGLOBIN 29 pg (25-34); MEAN CORPUSCULAR HGB CONC 31 g/dL (32-36); MEAN CORPUSCULAR VOLUME 92 fL (80-99); MEAN PLATELET VOLUME 11.1 fL (9.0-12.2); MONOCYTES % (AUTO) 11 % (0-12); NEUTROPHILS # (AUTO) 5.8 10^3/uL (1.8-7.8); NEUTROPHILS % (AUTO) 66 % (42-75); PLATELET COUNT 161 10^3/uL (130-400); WHITE BLOOD COUNT 8.8 10^3/uL (4.3-11.0)
[2021-01-14] MEDS: LEVOTHYROXINE 100 MCG (LEVOTHROID) TAB PO SCH (06:03)
[2021-01-14] MEDS: SINEMET 25/250 (CARBIDOPA/LEVODOPA) TAB PO SCH ×3 (06:03→16:57)
[2021-01-14] MEDS: PANTOPRAZOLE 20 MG TABLET (PROTONIX) PO SCH (06:03)
[2021-01-14 06:10] LABS: ALBUMIN 3.5 GM/DL (3.2-4.5); POTASSIUM 3.9 MMOL/L (3.6-5.0)
[2021-01-14 06:11] LABS: CALCIUM 9.6 MG/DL (8.5-10.1)
[2021-01-14 06:13] LABS: TOTAL PROTEIN 6.7 GM/DL (6.4-8.2)
[2021-01-14 06:14] LABS: BILIRUBIN,TOTAL 0.4 MG/DL (0.1-1.0)
[2021-01-14 06:16] LABS: CREATININE SERUM 0.84 MG/DL (0.60-1.30)
[2021-01-14 06:19] LABS: SMEAR SCAN COMMENT YES
[2021-01-14] MEDS: SENNA W/DOCUSATE (SENOKOT S) TABLET PO SCH (07:57)
[2021-01-14] MEDS: KCL 8 MEQ (MICRO K) TABLET PO SCH ×2 (08:57→16:57)
[2021-01-14] MEDS: LACTOBACILLUS ACIDOPHILUS (PROBIOTIC) CAPSULE PO SCH (08:57)
[2021-01-14] MEDS: ASPIRIN 325 MG (5 GR) TABLET PO SCH (08:58)
[2021-01-14] MEDS: FUROSEMIDE 40 MG (LASIX) TAB PO SCH ×2 (08:58→16:57)
[2021-01-14] MEDS: APIXABAN 2.5 MG (ELIQUIS) TABLET PO SCH ×2 (08:58→19:29)
[2021-01-14] MEDS: PARoxetine 20 MG (PAXIL) TAB PO SCH (08:58)
[2021-01-14] MEDS: MONTELUKAST 10 MG (SINGULAIR) TAB PO SCH (08:58)
[2021-01-14] MEDS: DICLOFENAC 1% GEL 100 GM (VOLTAREN) TUBE TP SCH ×2 (09:09→19:30)
[2021-01-14] MEDS: RT--FLUTICASONE/SALMETEROL 113-14 (AIRDUO RespiCLICK) IH SCH ×2 (09:34→21:42)
[2021-01-14] MEDS ORDERED: CEFDINIR 300 MG (OMNICEF) CAP PO ONE (10:30)
--- NOTE | 2021-01-14 11:36 | Occupational Therapy Eval ---
OT Evaluation-General/PLF Medical Diagnosis Admission Date Jan 08, 2021 at 16:20 Medical Diagnosis: PNEUMONIA/SEPSIS Onset Date: Jan 08, 2021 Therapy Diagnosis Therapy Diagnosis: Impaired adls, balance, mobility, safety, memory Precautions Precautions/Isolations: Fall Prevention, Standard Precautions Referral Referral Reason: Evaluation/Treatment Medical History Pertinent Medical History: CAD, COPD, Dementia, HTN, Parkinson's Current History pt presents to ER with SOB and cough. She was negative for Covid (01/09/20), Pt alert and oriented x1. Appears to have good knowledge into assist provided at facility but no family present to verify accuracy of responses. Per chart, pt lives at [facility] in [facility]. Per patient, she receives assist with bathing and dressing secondary to staff being on a "schedule and needing to have me dressed before breakfast." Pt reports indep with toileting and eating. From description, it sounds as if pt uses a 4ww and ambulates only short distances. 4L NC at baseline. Reviewed History: Yes Social History Home: Assisted Living Entry Into Home: Level Entry ADL-Prior Level of Function SCALE: Activities may be completed with or without assistive devices. 6-Mwwmznpocl-feyxgik completes the activity by him/herself with no assistance from a helper. 5-Set-up or Clean-up Assistance-helper sets up or cleans up; patient completes activity. [place] assists only prior to or following the activity. 4-Supervision or Touching Assistance-helper provides verbal cues and/or touching/steadying and/or contact guard assistance as patient completes activity. Assistance may be provided throughout the activity or intermittently. 3-Partial/Moderate Assistance-helper does LESS THAN HALF the effort. [place] lifts, holds or supports trunk or limbs, but provides less than half the effort. 2-Substantial/Maximal Assistance-helper does MORE THAN HALF the effort. [place] lifts or holds trunk or limbs and provides more than half the effort. 7-Yqhcqpoln-jbhnms does ALL the effort. Patient does none of the effort to complete the activity. Or, the assistance of 2 or more helpers is required for the patient to complete the activity. If activity was not attempted, code reason: 7-Patient Refused. 9-Not Applicable-not attempted and the patient did not perform the activity before the current illness, exacerbation or injury. 10-Not Attempted due to Environmental Limitations-(lack of equipment, weather restraints, etc.). 88-Not Attempted due to Medical Conditions or Safety Concerns. Self Care: Needed Some Help Functional Cognition: Dependent DME/Equipment: Bath Chair, Grab Bars Drive Self: No OT Current Status Subjective Pt requires frequent reorientation to place. Poor problem solving despite cues. Pt often asking if we were heading to the bank. Appearance Pt left sitting in chair, all needs within reach, rn notified. Mental Status/Objective Patient Orientation: Person, Confused Attachments: Oxygen Current Glasses/Contacts: Yes Upper Extremity ROM RUE WFL LUE: 3/4 AROM, full PROM at shoulder. Upper Extremity Strength 3/5 throughout. ADL-Treatment Lower Body Dressing (QC): 1 On/Off Footwear (QC): 1 Toileting Hygiene (QC): 2 Pt sitting in chair at OT arrival. Dep to don gil socks. Repetition and simplification needed at times. Pt has tendency to want to push up from walker with bue's. Requires assist to reposition hands on chair post several verbal cues. Mod a to stand from low chair. Kyphotic posture in standing, unable to extend trunk. Pt took 3 steps forward/back, unsteady on feet. Poor eccentric control when lowering, requires assist to not plop. At this time, pt would require assist with all steps of toileting tasks secondary to reduced safety and balance. Education OT Patient Education: Correct positioning, Modified ADL techniques, Progress toward Goal/Update tx plan, Purpose of tx/functional activities, Rehab process, Safety issues, Transfer techniques Teaching Recipient: Patient Teaching Methods: Demonstration, Discussion Response to Teaching: Unable to Return Demonstration, Reinforcement Needed OT Locomotive Observer Goals Fpc Goals Eating (QC): 6 Toileting Hygiene (QC): 3 Pt will complete toilet transfer with CGA 1=Demonstrate adherence to instructed precautions during ADL tasks. 2=Patient will verbalize/demonstrate understanding of assistive devices/modifications for ADL. 3=Patient will improve strength/tolerance for activity to enable patient to perform ADL's. OT Education/Plan Problem List/Assessment Assessment: Decreased Activ Tolerance, Decreased Safety Aware, Decreased UE Strength, Impaired Cognition, Impaired Funct Balance, Impaired Self-Care Skills, Restricted Funct UE ROM Discharge Recommendations Plan/Recommendations: Continue POC Therapy Discharge Recommendati: 24 Hour Supervision, Assisted Living Treatment Plan/Plan of Care Treatment,Training & Education: Yes Patient would benefit from OT for education, treatment and training to promote independence in ADL's, mobility, safety and/or upper extremity function for ADL's. Plan of Care: ADL Retraining, Caregiver Training, Functional Mobility, UE Funct Exercise/Act Treatment Duration: Jan 23, 2021 Frequency: 5 times per week Estimated Hrs Per Day: .25 hour per day Rehab Potential: Fair Time/GCodes Start Time: 11:05 Stop Time: 11:28 Total Time Billed (hr/min): 23 Billed Treatment Time 1 visit, EVM (15 min), ADL (8m) Amanda Mathur OT Jan 14, 2021 11:36
--- NOTE | 2021-01-14 11:42 | Progress Note - Hospitalist ---
LILO CALDWELL MED STUDENT 01/14/21 1142: Subjective HPI/CC On Admission Date Seen by Provider: Jan 14, 2021 Time Seen by Provider: 07:40 SOB Subjective/Events-last exam Chantal states no new pain. She continues to be SOB on 4-5L NC. No abdominal pain. Dry cough is unchanged. Bowels are moving. Objective Exam Vital Signs Vital Signs Date Time Temp Pulse Resp B/P (MAP) Pulse Ox O2 Delivery O2 Flow Rate FiO2 01/14/21 09:34 92 High Flow N/C 5.00 01/14/21 08:00 35.5 108 19 119/66 (83) 01/09/21 05:00 36 Capillary Refill : Less Than 3 Seconds General Appearance: No Apparent Distress, WD/WN HEENT: PERRL/EOMI, Moist Mucous Membranes Neck: Full Range of Motion, Normal Inspection Respiratory: Chest Non Tender, No Accessory Muscle Use, Other (coarse breath sounds in lower lobes bilaterally, some expiratory wheezing. on 5L NC. dry cough with deep breathing.) Cardiovascular: Regular Rate, Rhythm, No JVD Gastrointestinal: Non Tender, Soft Extremity: No Calf Tenderness, No Pedal Edema Neurologic/Psychiatric: Alert, Other (chronic alzheimer's dementia. Pleasant but mildly confused. ) Skin: Normal Color, Warm/Dry Results/Procedures Lab Laboratory Tests 01/14/21 05:35 Patient resulted labs reviewed. Assessment/Plan Assessment and Plan Assess & Plan/Chief Complaint repeat CXR: pneumonitis/bibasilar atalectasis recent pneumonia with bilateral infiltrates -covid negative 01/08 -completed Azithromycin. completed Rocephin yesterday. -start Cefdinir d/t continued lung pathology -Will work with PT. -Oxygen still at 4-5 LPM underlying COPD -breathing treatments PRN CHF -on lasix 40mg qd Parkinson's disease -on carbidopa/levodopa and pramiprexole DVT/PE prophylaxis -patient is on ANDRESSA Russo DO 01/15/21 0522: Subjective Subjective/Events-last exam Pt doing about the same Rocephin completed so will switch to Omnicef 300 mg BID PT and OT will be ordered Confusion still persists Very impulsive Review of Systems General: Fatigue, Malaise Objective Exam General Appearance: No Apparent Distress, WD/WN, Chronically ill Respiratory: No Accessory Muscle Use, No Respiratory Distress, Decreased Breath Sounds Neurologic/Psychiatric: Alert, Disoriented Assessment/Plan Assessment and Plan Assess & Plan/Chief Complaint Discharge plan for later this week Supervisory-Addendum Brief Verification & Attestation Participated in pt care: history, MDM, physical Personally performed: exam, history, MDM, supervision of care Care discussed with: Medical Student Procedures: n/a Results interpretation: Verified all documentation Verification and Attestation of Medical Student E/M Service A medical student performed and documented this service in my presence. I reviewed and verified all information documented by the medical student and made modifications to such information, when appropriate. I personally performed the physical exam and medical decision making. Andressa Amaro, Jan 15, 2021,05:22 LILO CALDWELL MED STUDENT Jan 14, 2021 11:42 ANDRESSA AMARO DO Jan 15, 2021 05:22
[2021-01-14] MEDS: AtorvaSTATin TABLET 10 MG TABLET PO SCH (11:53)
--- NOTE | 2021-01-14 14:35 | Physical Therapy Evaluation ---
PT Evaluation-General Medical Diagnosis Admission Date Jan 08, 2021 at 16:20 Medical Diagnosis: PNEUMONIA/SEPSIS Onset Date: Jan 08, 2021 Therapy Diagnosis Therapy Diagnosis: generalized weakness/debility Precautions Precautions/Isolations: Fall Prevention, Standard Precautions Referral Physician: Prem Reason for Referral: Evaluation/Treatment Medical History Pertinent Medical History: Breast CA S/P Mastectomy, CAD, COPD, Dementia, Heart Failure, HTN, Parkinson's Current History ER secondary to SOA Reviewed History: Yes Social History Home: Assisted Living Entry Into Home: Level Entry Prior Prior Level of Function SCALE: Activities may be completed with or without assistive devices. 9-Pczaszoeld-rzaqsmv completes the activity by him/herself with no assistance from a helper. 5-Set-up or Clean-up Assistance-helper sets up or cleans up; patient completes activity. [place] assists only prior to or following the activity. 4-Supervision or Touching Assistance-helper provides verbal cues and/or touchin g/steadying and/or contact guard assistance as patient completes activity. Assistance may be provided throughout the activity or intermittently. 3-Partial/Moderate Assistance-helper does LESS THAN HALF the effort. [place] lifts, holds or supports trunk or limbs, but provides less than half the effort. 2-Substantial/Maximal Assistance-helper does MORE THAN HALF the effort. [place] lifts or holds trunk or limbs and provides more than half the effort. 3-Ftxgtqilk-ukvkik does ALL the effort. Patient does none of the effort to complete the activity. Or, the assistance of 2 or more helpers is required for the patient to complete the activity. If activity was not attempted, code reason: 7-Patient Refused. 9-Not Applicable-not attempted and the patient did not perform the activity before the current illness, exacerbation or injury. 10-Not Attempted due to Environmental Limitations-(lack of equipment, weather restraints, etc.). 88-Not Attempted due to Medical Conditions or Safety Concerns. Bed Mobility: 3 Transfers (B,C,W/C): 3 Gait: 3 Stairs: 9 Indoor Mobility (Ambulation): Needed Some Help Stairs: Not Applicalbe Prior Devices Use: Walker PT Evaluation-Current Subjective Patient agrees to PT. Very confused but pleasant. Objective Patient Orientation: Confused ROM/Strength ROM Lower Extremities bilateral LE WFL Strength Lower Extremities 3/5 grossly bilateral LE Integumentary/Posture Bowel Incontinence: Yes Bladder Incontinence: Yes Posture severely kyphotic Neuromuscular (Tone, Coordination, Reflexes) diminished coordination with all gross motor skills Sensory Vision: Wears Glasses Hearing: Impaired Transfers Sit to Lying (QC): 2 Lying to Sitting/Side of Bed(Q: 2 Sit to Stand (QC): 2 Chair/Yuf-ac-Mmkgp Xfer(QC): 2 Toilet Transfer (QC): 2 Gait Does the Patient Walk?: Yes Mode of Locomotion: Both Anticipated Mode of Locomotion: Both Walk 10 feet (QC): 2 Walk 50 ft with 2 Turns(QC): 88 Walk 150 ft (QC): 88 Distance: 20' x 2 Gait Assistive Device: FWW Comments/Gait Description very unsteady gait sequence requiring seated recovery period due to fatigue/weakness Balance Sitting Static: Fair Sitting Dynamic: Fair Standing Static: Fair Standing Dynamic: Poor Assessment/Needs 85 y.o. female, will be seen short term by skilled PT to address functional strength and mobility to improve current LOF. Rehab Potential: Fair PT Chcf Goals Cyber Engineer Goals PT Cyber Engineer Goals Time Frame: Jan 23, 2021 Roll Left & Right (QC): 3 Sit to Lying (QC): 3 Lying-Sitting on Side/Bed(QC): 3 Sit to Stand (QC): 3 Chair/Gyr-ko-Bfrsk Xfer(QC): 3 Toilet Transfer (QC): 3 Walk 10 feet (QC): 3 Walk 50ft with 2 Turns (QC): 3 PT Plan Problem List Problem List: Activity Tolerance, Functional Strength, Safety, Balance, Gait, Transfer, Bed Mobility Treatment/Plan Treatment Plan: Continue Plan of Care Treatment Plan: Bed Mobility, Education, Functional Activity Micki, Functional Strength, Gait, Safety, Therapeutic Exercise, Transfers Treatment Duration: Jan 23, 2021 Frequency: 6 times per week Estimated Hrs Per Day: .25 hour per day Patient and/or Family Agrees t: Yes Time/GCodes Time In: 1406 Time Out: 1416 Total Billed Treatment Time: 10 Total Billed Treatment 1 visit EVModC 10 min CHI AVALOS PT Jan 14, 2021 14:35
[2021-01-14] MEDS: PRAMIPEXOLE 0.5 MG TAB (MIRAPEX) PO SCH ×2 (16:57→19:31)
[2021-01-14] MEDS: QUEtiapine 100 MG (SEROquel) TAB IMMEDIATE RELEASE PO SCH (19:29)
[2021-01-14] MEDS: SINEMET 25/100 (CARBIDOPA/LEVODOPA) TAB PO SCH (19:29)
[2021-01-14] MEDS: CEFDINIR 300 MG (OMNICEF) CAP PO SCH (19:29)
[2021-01-15] MEDS: RT-ALBUTEROL/IPRATROPIUM 3 ML (DUONEB) VIAL INH SCH ×3 (03:42→14:40)
[2021-01-15 04:30] VITALS: BP 91/55
[2021-01-15] MEDS: LEVOTHYROXINE 100 MCG (LEVOTHROID) TAB PO SCH (05:45)
[2021-01-15] MEDS: SINEMET 25/250 (CARBIDOPA/LEVODOPA) TAB PO SCH ×2 (05:45→11:33)
[2021-01-15] MEDS: PANTOPRAZOLE 20 MG TABLET (PROTONIX) PO SCH (05:45)
[2021-01-15 06:37] LABS: BASOPHILS # (AUTO) 0.1 10^3/uL (0.0-0.1); BASOPHILS % (AUTO) 1 % (0-10); EOSINOPHILS # (AUTO) 0.5 10^3/uL (0.0-0.3); EOSINOPHILS % (AUTO) 5 % (0-10); HEMATOCRIT 40 % (35-52); HEMOGLOBIN 12.3 g/dL (11.5-16.0); LYMPHOCYTES # (AUTO) 1.1 10^3/uL (1.0-4.0); LYMPHOCYTES % (AUTO) 13 % (12-44); MEAN CORPUSCULAR HEMOGLOBIN 29 pg (25-34); MEAN CORPUSCULAR HGB CONC 31 g/dL (32-36); MEAN CORPUSCULAR VOLUME 93 fL (80-99); MEAN PLATELET VOLUME 11.4 fL (9.0-12.2); MONOCYTES # (AUTO) 0.9 10^3/uL (0.0-1.0); MONOCYTES % (AUTO) 11 % (0-12); NEUTROPHILS # (AUTO) 5.4 10^3/uL (1.8-7.8); NEUTROPHILS % (AUTO) 63 % (42-75); PLATELET COUNT 223 10^3/uL (130-400); WHITE BLOOD COUNT 8.5 10^3/uL (4.3-11.0)
[2021-01-15 06:38] LABS: SMEAR SCAN COMMENT YES
[2021-01-15 06:49] LABS: ALBUMIN 3.5 GM/DL (3.2-4.5)
[2021-01-15 06:50] LABS: POTASSIUM 4.2 MMOL/L (3.6-5.0)
[2021-01-15 06:51] LABS: CALCIUM 9.9 MG/DL (8.5-10.1)
[2021-01-15 06:52] LABS: TOTAL PROTEIN 6.9 GM/DL (6.4-8.2)
[2021-01-15 06:54] LABS: BILIRUBIN,TOTAL 0.3 MG/DL (0.1-1.0)
[2021-01-15 06:56] LABS: CREATININE SERUM 0.83 MG/DL (0.60-1.30)
[2021-01-15] MEDS: RT--FLUTICASONE/SALMETEROL 113-14 (AIRDUO RespiCLICK) IH SCH (07:50)
[2021-01-15 08:00] VITALS: BP 118/76
[2021-01-15] MEDS: ASPIRIN 325 MG (5 GR) TABLET PO SCH (08:19)
[2021-01-15] MEDS: SENNA W/DOCUSATE (SENOKOT S) TABLET PO SCH (08:19)
[2021-01-15] MEDS: KCL 8 MEQ (MICRO K) TABLET PO SCH (08:19)
[2021-01-15] MEDS: PARoxetine 20 MG (PAXIL) TAB PO SCH (08:19)
[2021-01-15] MEDS: LACTOBACILLUS ACIDOPHILUS (PROBIOTIC) CAPSULE PO SCH (08:19)
[2021-01-15] MEDS: MONTELUKAST 10 MG (SINGULAIR) TAB PO SCH (08:19)
[2021-01-15] MEDS: APIXABAN 2.5 MG (ELIQUIS) TABLET PO SCH (08:19)
[2021-01-15] MEDS: CEFDINIR 300 MG (OMNICEF) CAP PO SCH (08:19)
[2021-01-15] MEDS: FUROSEMIDE 40 MG (LASIX) TAB PO SCH (08:19)
[2021-01-15] MEDS: DICLOFENAC 1% GEL 100 GM (VOLTAREN) TUBE TP SCH (08:21)
[2021-01-15] MEDS ORDERED: CEFD300C3 PO (10:30)
--- NOTE | 2021-01-15 10:36 | D/C HH Face to Face Order ---
D/C Face to Face Orders Reconcile Patient Problems Problems Reviewed?: Yes Instructions for Patient Patient Instructions/FollowUp: [facility] 1 week Physician to follow Patient: [facility] Discharge Diet for Home: No Restrictions Patient Problems: Debility Parkinson's Patient Data-Allergies,Ht & Wt Patient Allergies: Coded Allergies: Sulfa (Sulfonamide Antibiotics) (Verified Allergy, Unknown, 02/13/20) acetaminophen (Verified Allergy, Unknown, 02/18/20) ciprofloxacin (Verified Allergy, Unknown, 02/18/20) codeine (Verified Allergy, Unknown, 02/18/20) meperidine (Verified Allergy, Unknown, 02/18/20) oxycodone (Verified Allergy, Unknown, 02/18/20) ropinirole (Verified Allergy, Unknown, 02/18/20) Home Health Need/Face to Face Date of Face to Face: Jan 15, 2021 Clinical Findings: Generalized weakness and fatigue, Instability, Muscle weakness I have seen Pt hkvf-du-jkyg: Yes Discharged To: Home Diagnosis/Conditions: Debility Patient is Homebound due to: CognItive deficits, Onel fall risk due to instabilty, Muscle weakness Homebound Status Due to the above stated illness, injury or surgical procedure (medical condition or diagnosis) and associated clinical findings, the patient is homebound because of his/her inability to leave home except with aid of a supportive device and/or person AND leaving the home requires a considerable and taxing effort or is medically contraindicated. Pt req the following assistanc: Walker Home Health Nursing Orders Home Health Services Order: Telehealth Coordinator-Evaluate & Treat, Physical Therapy-Evaluate & Treat Home Health Infusion Therapy Line Start Date: Jan 08, 2021 Certify Stmt I certify that this patient is under my care and that I, a nurse practitioner or a physician; a business office assistant working with me, had a face to face encounter that - meets the physician face to face encounter requirements with this patient as dated. PREETI GEORGE DO Jan 15, 2021 10:36
--- NOTE | 2021-01-15 10:37 | Discharge Summary ---
Discharge Summary Hospital Course Was the Problem List Reviewed?: Yes Problems/Dx: (1) Pneumonia Status: Acute Qualifiers: Qualified Codes: J18.9 - Pneumonia, unspecified organism (2) Sepsis Status: Acute Qualifiers: Qualified Codes: A41.9 - Sepsis, unspecified organism; R65.20 - Severe sepsis without septic shock Hospital Course Date of Admission: Jan 08, 2021 at 16:20 Admission Diagnosis : Family Physician/Provider: Indra Mahan MD Date of Discharge: 01/15/21 Discharge Diagnosis: Pneumonia, sepsis, dementia, Parkinson's Hospital Course: Hospital course: Pt had an uneventful lengthy hospital course after she was admitted for pneumonia an sepsis. Covid swab was negative, overall did very well but sever Parkinsons and dementia precluded anything but a poor prognosis and she was deemed stable for discharge to long-term, but she will go back to [facility]. Labs and Pending Lab Test: Laboratory Tests 01/15/21 06:11: White Blood Count 8.5, Red Blood Count 4.30, Hemoglobin 12.3, Hematocrit 40, Mean Corpuscular Volume 93, Mean Corpuscular Hemoglobin 29, Mean Corpuscular Hemoglobin Concent 31L, Red Cell Distribution Width 13.6, Platelet Count 223, Mean Platelet Volume 11.4, Immature Granulocyte % (Auto) 7, Neutrophils (%) (Auto) 63, Lymphocytes (%) (Auto) 13, Monocytes (%) (Auto) 11, Eosinophils (%) ( Auto) 5, Basophils (%) (Auto) 1, Neutrophils # (Auto) 5.4, Lymphocytes # (Auto) 1.1, Monocytes # (Auto) 0.9, Eosinophils # (Auto) 0.5H, Basophils # (Auto) 0.1, Immature Granulocyte # (Auto) 0.6H, Sodium Level 138, Potassium Level 4.2, Chloride Level 97L, Carbon Dioxide Level 32, Anion Gap 9, Blood Urea Nitrogen 17, Creatinine 0.83, Estimat Glomerular Filtration Rate 65, BUN/Creatinine Ratio 20, Glucose Level 101, Calcium Level 9.9, Corrected Calcium 10.3H, Total Bilirubin 0.3, Aspartate Amino Transf (AST/SGOT) 24, Alanine Aminotransferase (ALT/SGPT) 9, Alkaline Phosphatase 77, Total Protein 6.9, Albumin 3.5, Smear Scan YES Microbiology 01/08/21 Blood Culture - Final, Complete No growth Home Meds Active Cefdinir 300 Mg Capsule 300 Mg PO BID Reported Ondansetron Odt (Ondansetron) 4 Mg Tab.rapdis 4 Mg PO BID PRN Aspirin EC (Aspirin) 325 Mg Tablet.dr 325 Mg PO Q6H PRN Folbee Tablet (Cyanocobalamin/FA/Pyridoxine) 1 Each Tablet 1 Each PO Q48H Miralax (Polyethylene Glycol 3350) 17 Gm Powd.pack 17 Gm PO Q48H Miralax (Polyethylene Glycol 3350) 17 Gm Powd.pack 17 Gm PO DAILY PRN Diclofenac Sodium 100 Gm Gel..gram. 1 Applic TP BID APPLY TO RIGHT SHOULDER Senna-S 8.6-50 mg Tablet (Sennosides/Docusate Sodium) 1 Each Tablet 1 Each PO DAILY Artificial Tears 15 Ml Soln 1 Drop OU QID Advair 250-50 Diskus (Fluticasone/Salmeterol) 1 Each Blst.w.dev 1 Each IH BID Laurence-128 (Sodium Chloride) 15 Ml Drops 1 Drop OU HS Iprat-Albut 0.5-3(2.5) mg/3 ml (Ipratropium/Albuterol Sulfate) 3 Ml Ampul.neb 3 Ml IH QID PRN Guaifenesin 400 Mg Tablet 400 Mg PO Q4H PRN Night Time Cold-Flu Softgel (D-Methorphan/Acetamin/Doxylamn) 1 Each Capsule 1 Each PO Q6H PRN Probiotic (L.acidoph & Paracasei,B.lactis) 1 Each Capsule 1 Each PO DAILY Cranberry Concentrate Softgel (Cranberry Conc/Ascorbic Acid) 1 Each Capsule 2 Each PO DAILY Carbidopa-Levodopa 25-100 Tab (Carbidopa/Levodopa) 1 Each Tablet 2 Each PO HS Atorvastatin Calcium 10 Mg Tablet 5 Mg PO 1200 PT TAKES 1/2 TAB DAILY Nuplazid (Pimavanserin Tartrate) 34 Mg Capsule 34 Mg PO HS Levothyroxine (Levothyroxine Sodium) 100 Mcg Capsule 100 Mcg PO DAILY Paxil (Paroxetine HCl) 20 Mg Tablet 30 Mg PO DAILY TAKES 1 AND 1/2 TABS DAILY Co Q-10 (Ubidecarenone) 200 Mg Capsule 200 Mg PO DAILY Cefaclor 250 Mg Capsule 250 Mg PO DAILY Carbidopa-Levodopa 25-250 Tab (Carbidopa/Levodopa) 1 Each Tablet 1 Each PO 0700,1200,1600 Aspirin 325 Mg Tablet 325 Mg PO DAILY Myrbetriq (Mirabegron) 50 Mg Tab.er.24h 50 Mg PO DAILY Deanne-C 500 mg Tablet (Ascorbate Calcium/Bioflavonoid) 1 Each Tablet 1 Each PO DAILY Eliquis (Apixaban) 2.5 Mg Tablet 2.5 Mg PO BID Montelukast Sodium 10 Mg Tablet 10 Mg PO DAILY Os-Jules 500+D3 Caplet (Calcium Carbonate/Vitamin D3) 1 Each Tablet 1 Each PO DAILY Seroquel (Quetiapine Fumarate) 25 Mg Tablet 100 Mg PO HS TAKES 4 TABLETS EVERY NIGHT AT BEDTIME Mirapex (Pramipexole Di-HCl) 0.5 Mg Tablet 0.5 Mg PO 1700,2000 Exelon (Rivastigmine) 9.5 Mg Patch 9.5 Mg TD DAILY Klor-Con 8 (Potassium Chloride) 8 Meq Tablet.er 8 Meq PO BID Esomeprazole Magnesium 20 Mg Capsule.dr 20 Mg PO DAILY Furosemide 40 Mg Tablet 40 Mg PO BID Alprazolam 0.5 Mg Tablet 0.5 Mg PO Q8H PRN Assessment/Pt Instructions [facility] in 1 week Discharge Planning: <30 minutes discharge planning Discharge Physical Examination Vital Signs Vital Signs Date Time Temp Pulse Resp B/P (MAP) Pulse Ox O2 Delivery O2 Flow Rate FiO2 01/15/21 08:00 92 High Flow N/C 4.00 01/15/21 08:00 36.0 92 16 118/76 (90) 01/09/21 05:00 36 General Appearance: No Apparent Distress, WD/WN, Chronically ill Respiratory: Lungs Clear Cardiovascular: Regular Rate, Rhythm Neurologic/Psychiatric: Alert, Disoriented Allergies: Coded Allergies: Sulfa (Sulfonamide Antibiotics) (Verified Allergy, Unknown, 02/13/20) acetaminophen (Verified Allergy, Unknown, 02/18/20) ciprofloxacin (Verified Allergy, Unknown, 02/18/20) codeine (Verified Allergy, Unknown, 02/18/20) meperidine (Verified Allergy, Unknown, 02/18/20) oxycodone (Verified Allergy, Unknown, 02/18/20) ropinirole (Verified Allergy, Unknown, 02/18/20) Discharge Summary Date of Admission Jan 08, 2021 at 16:20 Date of Discharge Discharge Date: Jan 15, 2021 Discharge Diagnosis Discharge plan for later this week PREETI GEORGE DO Jan 15, 2021 10:36
[2021-01-15] MEDS: AtorvaSTATin TABLET 10 MG TABLET PO SCH (11:33)
--- NOTE | 2021-01-15 11:34 | Physical Therapy Daily Note ---
PT Daily Note-Current Subjective Pt sitting in recliner upon arrival. Pt agrees to PT. Pain Location: No Pain Reported Mental Status Patient Orientation: Person, Confused, Place Attachments: Oxygen Transfers SCALE: Activities may be completed with or without assistive devices. 8-Mvmibzjnbx-hpotwaj completes the activity by him/herself with no assistance from a helper. 5-Set-up or Clean-up Assistance-helper sets up or cleans up; patient completes activity. [place] assists only prior to or following the activity. 4-Supervision or Touching Assistance-helper provides verbal cues and/or to uching/steadying and/or contact guard assistance as patient completes activity. Assistance may be provided throughout the activity or intermittently. 3-Partial/Moderate Assistance-helper does LESS THAN HALF the effort. [place] lifts, holds or supports trunk or limbs, but provides less than half the effort. 2-Substantial/Maximal Assistance-helper does MORE THAN HALF the effort. [place] lifts or holds trunk or limbs and provides more than half the effort. 2-Omgjzecdp-osquyr does ALL the effort. Patient does none of the effort to complete the activity. Or, the assistance of 2 or more helpers is required for the patient to complete the activity. If activity was not attempted, code reason: 7-Patient Refused. 9-Not Applicable-not attempted and the patient did not perform the activity before the current illness, exacerbation or injury. 10-Not Attempted due to Environmental Limitations-(lack of equipment, weather restraints, etc.). 88-Not Attempted due to Medical Conditions or Safety Concerns. Sit to Stand (QC): 2 Toilet Transfer (QC): 2 Weight Bearing Full Weight Bearing Full Weight Bearing Treatments TF to standing & SPT to [facility]. Assistance of 2 needed for transfer. Pt dribbles on way there so pt is given quick sponge bath & brief and gown replaced. Pt returns to recliner via SPT. All needs met, call light in hand. Assessment Current Status: Fair Progress Pt is confused and retropulsive. Assistance of 2 needed. PT Retirement Goals Director Investment Banking Goals PT Director Investment Banking Goals Time Frame: Jan 23, 2021 Roll Left & Right (QC): 3 Sit to Lying (QC): 3 Lying-Sitting on Side/Bed(QC): 3 Sit to Stand (QC): 3 Chair/Zrv-ct-Jjybn Xfer(QC): 3 Toilet Transfer (QC): 3 Walk 10 feet (QC): 3 Walk 50ft with 2 Turns (QC): 3 PT Plan Problem List Problem List: Activity Tolerance, Functional Strength, Transfer Treatment/Plan Treatment Plan: Continue Plan of Care Treatment Plan: Bed Mobility, Education, Functional Activity Micki, Functional Strength, Gait, Safety, Therapeutic Exercise, Transfers Treatment Duration: Jan 23, 2021 Frequency: 6 times per week Estimated Hrs Per Day: .25 hour per day Patient and/or Family Agrees t: Yes Safety Risks/Education Patient Education: Transfer Techniques, Correct Positioning, Safety Issues Teaching Recipient: Patient Teaching Methods: Discussion Response to Teaching: Reinforcement Needed Time/GCodes Time In: 1045 Time Out: 1105 Total Billed Treatment Time: 20 Total Billed Treatment 1, FA (20m) AUTUMN RIOJAS POLE CUTTER Jan 15, 2021 11:34
--- NOTE | 2021-01-15 11:40 | Occupational Ther Daily Note ---
OT Current Status-Daily Note Subjective Pt. alert in recliner. Pt. agrees to therapy. Mental Status/Objective Patient Orientation: Person, Confused Attachments: Oxygen ADL-Treatment Pt. states need to use toilet. Pt CGA mod a to stand using FWW to ambu to commode. Pt. cleansed face, chest, arms/underarms, abdomen, geoff by self after set up, hospital gown set up and changed after sponge bath. When done using commode Pt mod a x2 one to stand one to cleanse buttocks and manipulate brief. Pt experienced retropulsion requiring assist to right self and steady while buttocks/geoff cleansed after toileting. Pt. CGA mod a using FWW to transfer back to recliner. Pt. seated in recliner, call light/phone in reach. All needs met. Therapy Code Descriptions/Definitions Functional [place] Measure: 0=Not Assessed/NA 4=Minimal Assistance 1=Total Assistance 5=Supervision or Setup 2=Maximal Assistance 6=Modified [place] 3=Moderate Assistance 7=Complete IndependenceSCALE: Activities may be completed with or without assistive devices. 8-Bnxprrylgk-djdwhlk completes the activity by him/herself with no assistance from a helper. 5-Set-up or Clean-up Assistance-helper sets up or cleans up; patient completes activity. [place] assists only prior to or following the activity. 4-Supervision or Touching Assistance-helper provides verbal cues and/or touching/steadying and/or contact guard assistance as patient completes activity. Assistance may be provided throughout the activity or intermittently. 3-Partial/Moderate Assistance-helper does LESS THAN HALF the effort. [place] lifts, holds or supports trunk or limbs, but provides less than half the effort. 2-Substantial/Maximal Assistance-helper does MORE THAN HALF the effort. [place] lifts or holds trunk or limbs and provides more than half the effort. 0-Ptvwednul-ajzjqo does ALL the effort. Patient does none of the effort to complete the activity. Or, the assistance of 2 or more helpers is required for the patient to complete the activity. If activity was not attempted, code reason: 7-Patient Refused. 9-Not Applicable-not attempted and the patient did not perform the activity before the current illness, exacerbation or injury. 10-Not Attempted due to Environmental Limitations-(lack of equipment, weather restraints, etc.). 88-Not Attempted due to Medical Conditions or Safety Concerns. OT Tier Lift Truck Operator Goals Tier Lift Truck Operator Goals Eating (QC): 6 Toileting Hygiene (QC): 3 Pt will complete toilet transfer with CGA 1=Demonstrate adherence to instructed precautions during ADL tasks. 2=Patient will verbalize/demonstrate understanding of assistive devices/modifications for ADL. 3=Patient will improve strength/tolerance for activity to enable patient to perform ADL's. OT Education/Plan Problem List/Assessment Assessment: Decreased Activ Tolerance, Decreased Safety Aware, Decreased UE Strength, Impaired Cognition, Impaired Self-Care Skills Discharge Recommendations Plan/Recommendations: Continue POC Treatment Plan/Plan of Care Patient would benefit from OT for education, treatment and training to promote independence in ADL's, mobility, safety and/or upper extremity function for ADL's. Plan of Care: ADL Retraining, Caregiver Training, Functional Mobility, UE Funct Exercise/Act Treatment Duration: Jan 23, 2021 Frequency: 5 times per week Estimated Hrs Per Day: .25 hour per day Rehab Potential: Fair Time/GCodes Start Time: 10:45 Stop Time: 11:05 Total Time Billed (hr/min): 20 Billed Treatment Time 1 visit- ADL 1 (20 min) DAVID GÓMEZ Jan 15, 2021 11:40
[2021-01-15 12:00] VITALS: BP 106/64
--- NOTE | 2021-01-15 12:42 | Progress Note ---
HERVE WHITNEY 01/15/21 1242: Progress Note Hospitalist Discharge On 01/08 85 yo female presented to ER with shortness of breath and cough. She denies fever and had COVID earlier this year, and she is vaccinated. CXR reveals interval development of bilateral infiltrates on 01/08. She is being treated for suspected pneumonia and sepsis with Azithromycin and ceftriaxone, and is requiring 4 lpm supplemental oxygen. On 01/10 she reports to breathing better and feeling better. From 01/10 to 01/15 she continued to improve with a CXR done on 01/13 that showed B/L perihilar atelectasis. Her lactic acid levels are declining from 3.08 to 1.54, and her hemoglobin levels continue to rise to a current level of 12.3. On 01/15 she is cleared for discharge to home health with continuing omnicef. ANDRESSA GEORGE DO 01/15/21 2100: Supervisory-Addendum Brief Verification & Attestation Participated in pt care: history, MDM, physical Personally performed: exam, history, MDM, supervision of care Care discussed with: Medical Student Procedures: n/a Results interpretation: Verified all documentation Verification and Attestation of Medical Student E/M Service A medical student performed and documented this service in my presence. I reviewed and verified all information documented by the medical student and made modifications to such information, when appropriate. I personally performed the physical exam and medical decision making. Andressa George, Jan 15, 2021,21:00 DEVONTEHERVE Jan 15, 2021 12:42 ANDRESSA GEORGE DO Jan 15, 2021 21:00
[2021-01-15 15:29] VITALS: BP 106/64
== END 2021-01-15 15:15 | DRG 871 ==
LOC: EDUNIT# 13:35 → ER FS 13:36 → 4TH 16:20
PROVIDERS: ADMIT Family Medicine; ATTEND Internal Medicine
DX: A41.9 Sepsis, unspecified organism (principal); J18.9 Pneumonia, unspecified organism; J96.01 Acute respiratory failure with hypoxia; J44.0 Chronic obstructive pulmonary disease with (acute) lower respiratory infection; R65.20 Severe sepsis without septic shock; G20 Parkinson's disease; F02.80 Dementia in other diseases classified elsewhere, unspecified severity, without behavioral disturbance, psychotic disturbance, mood disturbance, and anxiety; I11.0 Hypertensive heart disease with heart failure; I50.9 Heart failure, unspecified; I25.10 Atherosclerotic heart disease of native coronary artery without angina pectoris; K21.9 Gastro-esophageal reflux disease without esophagitis; Z79.82 Long term (current) use of aspirin; Z79.890 Hormone replacement therapy; Z79.899 Other long term (current) drug therapy; Z79.01 Long term (current) use of anticoagulants; Z88.2 Allergy status to sulfonamides; Z88.5 Allergy status to narcotic agent; Z88.6 Allergy status to analgesic agent; Z88.8 Allergy status to other drugs, medicaments and biological substances; Z20.822 Contact with and (suspected) exposure to COVID-19; Z85.3 Personal history of malignant neoplasm of breast; Z86.16 Personal history of COVID-19
CPT/HCPCS: 36415; 71045; 80053; 81000; 83605; 83880; 85007; 85025; 85027; 86141; 87040; 87635; 94640; 94664; 94760; 94761; 96361; 96374; 96375

== ENCOUNTER 2021-02-19 13:03 | Emergency (ER) | payer MEDICARE ==
[~2021-02-19] VITALS: Ht 154 cm; Wt 68.0 kg
[~2021-02-19 13:03] MED LIST changes: +ALPR0.5T7 PO; +APIX2.5T; +APIX2.5T PO; +ASCO1TAB12 PO; +ASPI-808 PO; +ASPI325T32 PO; +ATOR10TA66; +ATOR10TA66 PO; +CALC1TAB29 PO; +CARB-254 OP; +CARB1TAB19 PO; +CARB1TAB22; +CARB1TAB22 PO; +CEFA250C44 PO; +CEFD300C3 PO; +CRAN1CAP9 PO; +CYAN1TAB13 PO; +D ME PO; +DICL100G13; +DICL100G13 TP; +DICL20GE TP; +ESOM20CA37 PO; +ESTR1VAG; +FLUC150T2; +FLUT1DIS26 IH; +GUAI400T86 PO; +IPRA3AMP31 IH; +L.AC1CAP6 PO; +LEVO100C4 PO; +LEVO100T7; +LNZ600T; +METH1POW32 MC; +MIRA50TA; +MIRA50TA PO; +MONT10TA32 PO; +OMEP20CA18; +ONDA4TAB11 PO; +PARO-49; +PARO-49 PO; +PIMA34CA; +PIMA34CA PO; +POLY15DR27 OU; +POLY17PO6 PO; +POTA8TAB2 PO; +PRAM0.5T2 PO; +PRAM0.5T9; +QUET25TA PO; +QUET25TA35; +RIVA1PAT3; +RIVA1PAT3 TD; +SENN-273 PO; +SODI15DR7 OU; +UBID200C16 PO
--- OUTSIDE RECORDS SUMMARY | 2021-02-19 13:11 | XMS REPORT | Clinical Summary ---
Author Author [facility] Organization [facility] Address Unknown Phone Unavailable Care Team Providers Care Shop Estimator Name Role Phone Luiz Bowen MD Unavailable Carlitos GARCIA MD, Leland Unavailable Mary Velasquez MD Unavailable Unavailable Raul Little MD Unavailable Unavailable Amaris Pederson HORSERADISH MAKER-DAT INSTRUCTOR Unavailable Lorne Deleon MD Unavailable Indra Mahan MD PCP Source Comments Some departments are not documenting in the electronic medical record. If you d o not see the information that you expected, contact Release of Information in [facility] [employer] Information Management department at [phone] for further assistan ce in locating additional records.[facility] Allergies Comments Active Allergy Reactions Severity Noted [...] by 0 tabletIndications: mouth at Parkinson disease ([facility]) bedtime daily. Active diclofenac (VOLTAREN) 1 % [...] mg tabletIndications: tablet by 0 Parkinson disease ([facility]) mouth twice daily. Supper and bedtime 05/02/2021 [...] capsuleIndications: capsule by 1 Hallucination mouth daily. Active Problems Problem Noted Date Cerebrovascular accident [...] B12, urine analysis and methylmalonic acid l jad. At high risk for falls 05/02/2019 Overview: [...] significant improvement Diagnosed with Parkinson's D in 2016 L ast Assessment & Plan: Formatting of [...] a size 3 ring pessary with s upport L ast Assessment & Plan: Formatting of this note might be differ ent from the original. - Rx for new pessary given - estrace tiw - rtc w/ new pessary for fitting. 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 Diagnosed by DXA dating back to 1999 at [facility] Fracture History 2000 Distal Tibia/Fibia fracture req [...] chemotherapy and ra diation therapy Followed at [facility] Breast clinic. L ast Assessment & Plan: Formatting of this note might be differ ent from the original. Encounters Care Team Description Date Type Specialty Hand, Arline Castillo PA-C Vaginal atrophy (Primary Dx); Mixed stress and urge urinary incontinence 12/19/2020 Office Visit Uro Vp Biology 12/19/2020 Travel Lorne Deleon MD Hallucination 11/20/2020 Refill Neurology from Last 3 Months Immunizations Name [...] Date Recorded Female 01/11/2020 4:35 PM CDT Obstetrics History Term Pre Abrt (TAB) (SAB) [...] (1 of 1 - PPSV23) INFLUENZA VACCINE 11/24/2020 12/25/2016 (Previously completed), 01/21/2016, 01/21/2016 (Previously completed), Additional history exists OSTEOPOROSIS Completed 12/30/2017, SCREENING/MONITORING 08/15/2015, 06/25/2014, Additional history exists Results Not on filefrom Last 3 Months Insurance Type Payer Benefit Subscriber ID Effective Phone Address Plan / Dates Group Medicare MEDICARE MEDICARE [id number] 1999- PART A AND Present B PPO [facility] AAR [id number] [id number] SUPPLEMENT resent (Home) [place], [place] [address] Advance Directives Patient Manager Port Explanation Type Date Recorded Advance Directive/DPOA Advance Directives 12/13/2012 2:38 PM and Living Will Advance Directives 12/15/2011 1:20 PM and Living Will Advance Directives 12/09/2010 12:00 AM and Living Will
--- NOTE | 2021-02-19 13:31 | ED General ---
General Stated Complaint: COUGH Source of Information: Patient, EMS Exam Limitations: No Limitations (LILO RESTREPO APRN) History of Present Illness Date Seen by Provider: Feb 19, 2021 Time Seen by Provider: 13:26 Initial Comments To ER by private vehicle from [facility] in [place] with reports of a cough of 3 weeks duration. She has had intermittent fevers. She was admitted here on January 08 for pneumonia. She smokes about 6 to 10 cigarettes/day. None she has already had Covid she states. Records do show that she was discharged from here on January 15 with oxygen though she arrives today without oxygen. This may have been stopped in the interim. Oxygen saturation is 85% on room air on arrival. She is currently on Prednisone. Timing/Duration: 1-2 Days Severity: Moderate Associated Systoms: Cough (LILO RESTREPO APRN) Allergies and Home Medications Allergies Coded Allergies: Sulfa (Sulfonamide Antibiotics) (Verified Allergy, Unknown, 02/13/20) acetaminophen (Verified Allergy, Unknown, 02/18/20) ciprofloxacin (Verified Allergy, Unknown, 02/18/20) codeine (Verified Allergy, Unknown, 02/18/20) meperidine (Verified Allergy, Unknown, 02/18/20) oxycodone (Verified Allergy, Unknown, 02/18/20) ropinirole (Verified Allergy, Unknown, 02/18/20) Patient Home Medication List Home Medication List Reviewed: Yes (LILO RESTREPO APRN) Alprazolam (Alprazolam) 0.5 Mg Tablet, 0.5 MG PO Q8H PRN for ANXIETY, (Reported) Entered as Reported by: SAMANTHA BERRIOS on 01/09/21 1353 Apixaban (Eliquis) 2.5 Mg Tablet, 2.5 MG PO BID, (Reported) Entered as Reported by: SAMANTHA BERRIOS on 01/09/21 1424 Artificial Tears (Artificial Tears) 15 Ml Soln, 1 DROP OU QID, (Reported) Entered as Reported by: SAMANTHA BERRIOS on 01/09/21 1505 Ascorbate Calcium/Bioflavonoid (Deanne-C 500 mg Tablet) 1 Each Tablet, 1 EACH PO DAILY, (Reported) Entered as Reported by: SAMANTHA BERRIOS on 01/09/21 1425 Aspirin (Aspirin) 325 Mg Tablet, 325 MG PO DAILY, (Reported) Entered as Reported by: SAMANTHA BERRIOS on 01/09/21 1428 Aspirin (Aspirin EC) 325 Mg Tablet.dr, 325 MG PO Q6H PRN for PAIN-MILD (1-4), (Reported) Entered as Reported by: SAMANTHA BERRIOS on 01/09/21 1609 Atorvastatin Calcium (Atorvastatin Calcium) 10 Mg Tablet, 5 MG PO 1200, (Reported) Entered as Reported by: SAMANTHA BERRIOS on 01/09/21 1437 Calcium Carbonate/Vitamin D3 (Os-Jules 500+D3 Caplet) 1 Each Tablet, 1 EACH PO DAILY, (Reported) Entered as Reported by: SAMANTHA BERRIOS on 01/09/21 1422 Carbidopa/Levodopa (Carbidopa-Levodopa 25-250 Tab) 1 Each Tablet, 1 EACH PO 0700,1200,1600, (Reported) Entered as Reported by: SAMANTHA BERRIOS on 01/09/21 1430 Carbidopa/Levodopa (Carbidopa-Levodopa 25-100 Tab) 1 Each Tablet, 2 EACH PO HS, (Reported) Entered as Reported by: SAMANTAH BERRIOS on 01/09/21 1439 Cefdinir (Cefdinir) 300 Mg Capsule, 300 MG PO BID Prescribed by: PREETI GEORGE on 01/15/21 1030 Cefuroxime Axetil (Cefuroxime) 250 Mg Tablet, 250 MG PO BID Prescribed by: LILO RESTREPO on 02/19/21 1458 Cranberry Conc/Ascorbic Acid (Cranberry Concentrate Softgel) 1 Each Capsule, 2 EACH PO DAILY, (Reported) Entered as Reported by: SAMANTHA BERRIOS on 01/09/21 1443 Cyanocobalamin/FA/Pyridoxine (F[place]bee Tablet) 1 Each Tablet, 1 EACH PO Q48H, (Reported) Entered as Reported by: SAMANTHA BERRIOS on 01/09/21 1529 D-Methorphan/Acetamin/Doxylamn (Night Time Cold-Flu Softgel) 1 Each Capsule, 1 EACH PO Q6H PRN for COUGH, (Reported) Entered as Reported by: SAMANTHA BERRIOS on 01/09/21 1453 Diclofenac Sodium (Diclofenac Sodium) 100 Gm Gel..gram., 1 APPLIC TP BID, (Reported) Entered as Reported by: SAMANTHA BERRIOS on 01/09/21 1509 Esomeprazole Magnesium (Esomeprazole Magnesium) 20 Mg Capsule.dr, 20 MG PO DAILY, (Reported) Entered as Reported by: SAMANTHA BERRIOS on 01/09/21 1400 Fluticasone/Salmeterol (Advair 250-50 Diskus) 1 Each Blst.w.dev, 1 EACH IH BID, (Reported) Entered as Reported by: SAMANTHA BERRIOS on 01/09/21 1504 Furosemide (Furosemide) 40 Mg Tablet, 40 MG PO BID, (Reported) Entered as Reported by: SAMANTHA BERRIOS on 01/09/21 1359 Guaifenesin (Guaifenesin) 400 Mg Tablet, 400 MG PO Q4H PRN for CONGESTION, (Reported) Entered as Reported by: SAMANTHA BERRIOS on 01/09/21 1456 Ipratropium/Albuterol Sulfate (Iprat-Albut 0.5-3(2.5) mg/3 ml) 3 Ml Ampul.neb, 3 ML IH QID PRN for SHORTNESS OF BREATH, (Reported) Entered as Reported by: SAMANTHA BERRIOS on 01/09/21 1459 L.acidoph & Paracasei,B.lactis (Probiotic) 1 Each Capsule, 1 EACH PO DAILY, (Reported) Entered as Reported by: SAMANTHA BERRIOS on 01/09/21 1446 Levothyroxine Sodium (Levothyroxine) 100 Mcg Capsule, 100 MCG PO DAILY, (Reported) Entered as Reported by: SAMANTHA BERRIOS on 01/09/21 1435 Mirabegron (Myrbetriq) 50 Mg Tab.er.24h, 50 MG PO DAILY, (Reported) Entered as Reported by: SAMANTHA BERRIOS on 01/09/21 1426 Montelukast Sodium (Montelukast Sodium) 10 Mg Tablet, 10 MG PO DAILY, (Reported) Entered as Reported by: SAMANTHA BERRIOS on 01/09/21 1423 Ondansetron (Ondansetron Odt) 4 Mg Tab.rapdis, 4 MG PO BID PRN for NA USEA/VOMITING-1ST LINE, (Reported) Entered as Reported by: SAMANTHA BERRIOS on 01/09/21 1609 Paroxetine HCl (Paxil) 20 Mg Tablet, 30 MG PO DAILY, (Reported) Entered as Reported by: SAMANTHA BERRIOS on 01/09/21 1433 Pimavanserin Tartrate (Nuplazid) 34 Mg Capsule, 34 MG PO HS, (Reported) Entered as Reported by: SAMANTHA BERRIOS on 01/09/21 1436 Polyethylene Glycol 3350 (Miralax) 17 Gm Powd.pack, 17 GM PO DAILY PRN for CONSTIPATION-2ND LINE, (Reported) Entered as Reported by: SAMANTHA BERRIOS on 01/09/21 1513 Polyethylene Glycol 3350 (Miralax) 17 Gm Powd.pack, 17 GM PO Q48H, (Reported) Entered as Reported by: SAMANTHA BERRIOS on 01/09/21 1528 Potassium Chloride (Klor-Con 8) 8 Meq Tablet.er, 8 MEQ PO BID, (Reported) Entered as Reported by: SAMANTHA BERRIOS on 01/09/21 1403 Pramipexole Di-HCl (Mirapex) 0.5 Mg Tablet, 0.5 MG PO 1699,1999, (Reported) Entered as Reported by: SAMANTHA BERRIOS on 01/09/21 1412 Quetiapine Fumarate (Seroquel) 25 Mg Tablet, 100 MG PO HS, (Reported) Entered as Reported by: SAMANTHA BERRIOS on 01/09/21 1418 Rivastigmine (Exelon) 9.5 Mg Patch, 9.5 MG TD DAILY, (Reported) Entered as Reported by: SAMANTHA BERRIOS on 01/09/21 1404 Sennosides/Docusate Sodium (Senna-S 8.6-50 mg Tablet) 1 Each Tablet, 1 EACH PO DAILY, (Reported) Entered as Reported by: SAMANTHA BERRIOS on 01/09/21 1508 Sodium Chloride (Laurence-128) 15 Ml Drops, 1 DROP OU HS, (Reported) Entered as Reported by: SAMANTHA BERRIOS on 01/09/21 1500 Ubidecarenone (Co Q-10) 200 Mg Capsule, 200 MG PO DAILY, (Reported) Entered as Reported by: SAMANTHA BERRIOS on 01/09/21 1432 Review of Systems Review of Systems Constitutional: see HPI EENTM: see HPI Respiratory: see HPI, cough Cardiovascular: no symptoms reported Genitourinary: no symptoms reported Musculoskeletal: no symptoms reported Skin: no symptoms reported Psychiatric/Neurological: No Symptoms Reported Hematologic/Lymphatic: No Symptoms Reported (LILO RESTREPO APRN) Past Ejvgmuo-Yxnqex-Vzegoy Hx Seasonal Allergies Seasonal Allergies: No (LILO RESTREPO APRN) Past Medical History Surgery/Hospitalization HX: ANXIETY AND CHF Surgeries: No Respiratory: Yes COPD Cardiac: Yes (CHF) Cardiomyopathy, High Cholesterol, Hypertension Neurological: Yes Dementia, Parkinson's Disease, TIA Genitourinary: Yes UTI-Chronic Gastrointestinal: Yes Gastroesophageal Reflux Musculoskeletal: Yes (Osteomyelitis, Rotator cuff tear, Restless leg syndrome) Osteoporosis, Arthritis Endocrine: Yes (Hypokalemia) Hypothyroidsim HEENT: No Cancer: Yes Breast Psychosocial: Yes Anxiety, Depression Integumentary: No Blood Disorders: No (LILO RESTREPO APRN) Family Medical History No Pertinent Family Hx (LILO RESTREPO APRN) Physical Exam Vital Signs Vital Signs - First Documented 02/19/21 02/19/21 13:10 15:21 Temp 36.0 Pulse 105 Resp 20 B/P (MAP) 127/69 (88) Pulse Ox 86 O2 Delivery Room Air O2 Flow Rate 4.00 (MARSHAL KINSEY DO) Vital Signs Capillary Refill : (LILO RESTREPO APRN) Height, Weight, BMI Height: '" Weight: lbs. oz. kg; 28.74 BMI Method: General Appearance: No Apparent Distress, WD/WN Eyes: Bilateral Eye Normal Inspection Neck: Full Range of Motion Respiratory: No Accessory Muscle Use, No Respiratory Distress, Other (Bibasilar crackles, faint expiratory wheeze on the right) Cardiovascular: Regular Rate, Rhythm, Normal Peripheral Pulses Gastrointestinal: Normal Bowel Sounds, Non Tender, Soft Extremity: Normal Capillary Refill, Normal Inspection Neurologic/Psychiatric: Alert, Oriented x3 Skin: Normal Color, Warm/Dry (LILO RESTREPO APRN) Focused Exam Lactate Level 02/19/21 13:18: Lactic Acid Level 1.80 (MARSHAL KINSEY DO) Lactic Acid Level Laboratory Tests Test 02/19/21 13:18 Lactic Acid Level 1.80 MMOL/L (0.50-2.00) (MARSHAL KINSEY DO) Progress/Results/Core Measures Suspected Sepsis SIRS Temperature: Pulse: Respiratory Rate: Laboratory Tests 02/19/21 13:18: White Blood Count 21.3H Blood Pressure / Mean: 02/19/21 13:18: Lactic Acid Level 1.80 Laboratory Tests 02/19/21 13:18: Creatinine 0.96, INR Comment 1.1, Platelet Count 436H, Total Bilirubin 0.6 (LILO RESTREPO APRN) Results/Orders Lab Results Laboratory Tests Test 02/19/21 13:18 02/19/21 13:23 02/19/21 14:28 Range/Units White Blood Count 21.3 H 4.3-11.0 10^3/uL Red Blood Count 4.44 3.80-5.11 10^6/uL Hemoglobin 13.0 11.5-16.0 g/dL Hematocrit 40 35-52 % Mean Corpuscular Volume 91 80-99 fL Mean Corpuscular Hemoglobin 29 25-34 pg Mean Corpuscular Hemoglobin Concent 32 32-36 g/dL Red Cell Distribution Width 14.5 10.0-14.5 % Platelet Count 436 H 130-400 10^3/uL Mean Platelet Volume 11.3 9.0-12.2 fL Immature Granulocyte % (Auto) 1 % Neutrophils (%) (Auto) 93 H 42-75 % Lymphocytes (%) (Auto) 2 L 12-44 % Monocytes (%) (Auto) 4 0-12 % Eosinophils (%) (Auto) 0 0-10 % Basophils (%) (Auto) 0 0-10 % Neutrophils # (Auto) 19.8 H 1.8-7.8 10^3/uL Lymphocytes # (Auto) 0.5 L 1.0-4.0 10^3/uL Monocytes # (Auto) 0.8 0.0-1.0 10^3/uL Eosinophils # (Auto) 0.0 0.0-0.3 10^3/uL Basophils # (Auto) 0.0 0.0-0.1 10^3/uL Immature Granulocyte # (Auto) 0.2 H 0.0-0.1 10^3/uL Neutrophils % (Manual) 88 % Lymphocytes % (Manual) 5 % Monocytes % (Manual) 7 % Blood Morphology Comment NORMAL Prothrombin Time 15.0 H 12.2-14.7 SEC INR Comment 1.1 0.8-1.4 Activated Partial Thromboplast Time 32 24-35 SEC Sodium Level 134 L 135-145 MMOL/L Potassium Level 4.5 3.6-5.0 MMOL/L Chloride Level 95 L 98-107 MMOL/L Carbon Dioxide Level 26 21-32 MMOL/L Anion Gap 13 5-14 MMOL/L Blood Urea Nitrogen 20 H 7-18 MG/DL Creatinine 0.96 0.60-1.30 MG/DL Estimat Glomerular Filtration Rate 55 BUN/Creatinine Ratio 21 Glucose Level 229 H 70-105 MG/DL Lactic Acid Level 1.80 0.50-2.00 MMOL/L Calcium Level 9.9 8.5-10.1 MG/DL Corrected Calcium 10.1 8.5-10.1 MG/DL Total Bilirubin 0.6 0.1-1.0 MG/DL Aspartate Amino Transf (AST/SGOT) 23 5-34 U/L Alanine Aminotransferase (ALT/SGPT) 11 0-55 U/L Alkaline Phosphatase 81 40-136 U/L B-Type Natriuretic Peptide 80.9 <100.0 PG/ML Total Protein 7.1 6.4-8.2 GM/DL Albumin 3.7 3.2-4.5 GM/DL Procalcitonin 0.16 H <0.10 NG/ML SARS-CoV-2 RNA (RT-PCR) Not Detected Not Detecte Urine Color YELLOW Urine Clarity CLEAR Urine pH 6.5 5-9 Urine Specific [place] 1.010 L 1.016-1.022 Urine Protein NEGATIVE NEGATIVE Urine Glucose (UA) NEGATIVE NEGATIVE Urine Ketones NEGATIVE NEGATIVE Urine Nitrite NEGATIVE NEGATIVE Urine Bilirubin NEGATIVE NEGATIVE Urine Urobilinogen 0.2 < = 1.0 MG/DL Urine Leukocyte Esterase TRACE H NEGATIVE Urine RBC (Auto) NEGATIVE NEGATIVE Urine RBC NONE /HPF Urine WBC 2-5 /HPF Urine Squamous Epithelial Cells 2-5 /HPF Urine Crystals NONE /LPF Urine Bacteria FEW H /HPF Urine Casts NONE /LPF Urine Mucus NEGATIVE /LPF Urine Culture Indicated CULTURE PENDING (MARSHAL KINSEY DO) Micro Results Microbiology 02/19/21 Blood Culture - Preliminary, Resulted No growth 02/19/21 Urine Culture - Preliminary, Resulted Enterococcus faecalis Mixed Bacterial Natalie 02/19/21 Blood Culture - Preliminary, Resulted No growth (MARSHAL KINSEY DO) Vital Signs/I&O 02/19/21 02/19/21 02/19/21 13:10 14:47 15:21 Temp 36.0 Pulse 105 101 100 Resp 20 20 20 B/P (MAP) 127/69 (88) 101/68 119/73 Pulse Ox 86 92 92 O2 Delivery Room Air Nasal Cannula Nasal Cannula O2 Flow Rate 4.00 (MARSHAL KINSEY DO) Vital Signs/I&O Capillary Refill : (LILO RESTREPO APRN) Departure Communication (Admissions) 145-she is certainly nontoxic-appearing. She is laughing joking and very talkative with us. She has been singing part of the time that she was here. When she does wear the oxygen that she has at home her oxygen saturation is about 93%. She is already on prednisone which will account for the leukocytosis. Her procalcitonin is insignificantly elevated. However given her structural lung disease from smoking we will go ahead and put her on some Ceftin antibiotics 250 mg twice daily for 7 days. I will double up on her Lasix dose to 80 mg twice daily (from 40 mg twice daily) for 48 hours given the chest x-ray findings. However these chest x-ray findings are not consistent with physical exam or BNP. She does not have diffuse crackles, no distended jugular veins and no respirat ory distress. She does not have pedal edema. Her BNP is normal. Patient is very happy with this plan as she does not want to stay in the hospital. Her son is at the bedside and will transport her home. (LILO RESTREPO APRN) Impression Primary Impression: COPD (chronic obstructive pulmonary disease) Additional Impressions: Bronchitis History of CHF (congestive heart failure) Disposition: HOME, SELF-CARE Condition: Stable Departure-Patient Inst. Decision time for Depature: 14:57 (LILO RESTREPO APRN) Referrals: SELFSANDRA MD (PCP/Family) Primary Care Physician Patient Instructions: Acute Bronchitis Add. Discharge Instructions: 1. Return to ER for any concerns 2. Follow-up with your doctor this week. Scripts Cefuroxime Axetil (Cefuroxime) 250 Mg Tablet 250 MG PO BID, #14 TAB Prov: LILO RESTREPO APRN 02/19/21 ATTENDING PHYSICIAN NOTE: I WAS PHYSICALLY PRESENT ER PHYSICIAN WHILE THIS PT WAS IN ER, BUT I WAS NOT INVOLVED IN ANY DECISION MAKING OR ANY CARE OF THIS PATIENT. (MARSHAL KINSEY DO) LILO RESTREPO APRN Feb 19, 2021 13:31 MARSHAL KINSEY DO Feb 21, 2021 21:38
[2021-02-19 13:35] LABS: BASOPHILS % (AUTO) 0 % (0-10); EOSINOPHILS % (AUTO) 0 % (0-10); HEMATOCRIT 40 % (35-52); LYMPHOCYTES # (AUTO) 0.5 10^3/uL (1.0-4.0); LYMPHOCYTES % (AUTO) 2 % (12-44); MEAN CORPUSCULAR HEMOGLOBIN 29 pg (25-34); MEAN CORPUSCULAR HGB CONC 32 g/dL (32-36); MEAN CORPUSCULAR VOLUME 91 fL (80-99); MEAN PLATELET VOLUME 11.3 fL (9.0-12.2); MONOCYTES # (AUTO) 0.8 10^3/uL (0.0-1.0); MONOCYTES % (AUTO) 4 % (0-12); NEUTROPHILS # (AUTO) 19.8 10^3/uL (1.8-7.8); NEUTROPHILS % (AUTO) 93 % (42-75); PLATELET COUNT 436 10^3/uL (130-400); WHITE BLOOD COUNT 21.3 10^3/uL (4.3-11.0)
[2021-02-19 13:39] LABS: ALBUMIN 3.7 GM/DL (3.2-4.5); POTASSIUM 4.5 MMOL/L (3.6-5.0)
[2021-02-19 13:40] LABS: CALCIUM 9.9 MG/DL (8.5-10.1); INR 1.1 (0.8-1.4)
[2021-02-19 13:41] LABS: TOTAL PROTEIN 7.1 GM/DL (6.4-8.2)
[2021-02-19 13:43] LABS: BILIRUBIN,TOTAL 0.6 MG/DL (0.1-1.0)
[2021-02-19 13:45] LABS: CREATININE SERUM 0.96 MG/DL (0.60-1.30)
[2021-02-19 13:58] LABS: LYMPHOCYTES % (MANUAL) 5 %; MONOCYTES % (MANUAL) 7 %; NEUTROPHILS % (MANUAL) 88 %; RBC MORPH NORMAL
[2021-02-19] MEDS ORDERED: RT-ALBUTEROL/IPRATROPIUM 3 ML (DUONEB) VIAL INH ONE (14:30)
[2021-02-19 14:35] LABS: BILIRUBIN,URINE NEGATIVE (NEGATIVE); CLARITY,URINE CLEAR; COLOR,URINE YELLOW; GLUCOSE, URINE (UA) NEGATIVE (NEGATIVE); KETONES,URINE NEGATIVE (NEGATIVE); LEUKOCYTE ESTERASE ,URINE TRACE (NEGATIVE); NITRITE,URINE NEGATIVE (NEGATIVE); PH,URINE 6.5 (5-9); PROTEIN,URINE NEGATIVE (NEGATIVE)
--- NOTE | 2021-02-19 14:42 | Diagnostic Imaging Report ---
INDICATION: Sepsis and cough Frontal chest obtained 2:38 p.m. and compared 01/13/2021 There is cardiomegaly. There is central vascular congestion with interstitial edema and some patchy bibasilar infiltrate which appears similar to the prior study. There is no pneumothorax or pleural fluid. IMPRESSION: Cardiomegaly and central vascular congestion with interstitial edema and patchy bibasilar infiltrate. Dictated by: Dictated on workstation # [id number]
[2021-02-19 14:43] LABS: BACTERIA,URINE FEW /HPF
[2021-02-19] MEDS ORDERED: CEFU250T80 PO (14:58)
[2021-02-19] MEDS ORDERED: CEFDINIR 300 MG (OMNICEF) CAP PO ONE (15:00)
[2021-02-19 15:21] VITALS: BP 119/73
== END 2021-02-19 15:19 | disposition home or self-care (01) ==
LOC: EDUNIT# 13:03 → ER 13:05
DX: J44.9 Chronic obstructive pulmonary disease, unspecified (principal); J40 Bronchitis, not specified as acute or chronic; I11.0 Hypertensive heart disease with heart failure; I50.9 Heart failure, unspecified; G20 Parkinson's disease; F41.9 Anxiety disorder, unspecified; E03.9 Hypothyroidism, unspecified; F32.9 Major depressive disorder, single episode, unspecified; E78.00 Pure hypercholesterolemia, unspecified; F03.90 Unspecified dementia, unspecified severity, without behavioral disturbance, psychotic disturbance, mood disturbance, and anxiety; K21.9 Gastro-esophageal reflux disease without esophagitis; F17.210 Nicotine dependence, cigarettes, uncomplicated; Z20.822 Contact with and (suspected) exposure to COVID-19; Z86.73 Personal history of transient ischemic attack (TIA), and cerebral infarction without residual deficits; Z79.01 Long term (current) use of anticoagulants; Z79.82 Long term (current) use of aspirin; Z79.890 Hormone replacement therapy; Z79.899 Other long term (current) drug therapy
CPT/HCPCS: 36415; 71045; 80053; 81000; 83605; 83880; 84145; 85007; 85027; 85610; 85730; 87040; 87077; 87088; 87636

== ENCOUNTER 2022-05-30 13:14 | Emergency (ER) | payer MEDICARE ==
[~2022-05-30] VITALS: Ht 162.6 cm; Wt 79.4 kg
[~2022-05-30 13:14] MED LIST changes: -CARB1TAB19 PO; -CARB1TAB22; -CARB1TAB22 PO; +CARB1TAB32 PO; +CARB1TAB35; +CARB1TAB35 PO; +CEFU250T80 PO; -FLUC150T2; +FLUC150T41; +MONT-40 PO; -MONT10TA32 PO; +PARO-124; +PARO-124 PO; -PARO-49; -PARO-49 PO; -POTA8TAB2 PO; +POTA8TAB64 PO
--- NOTE | 2022-05-30 13:19 | ED Cough/URI ---
General Chief Complaint: Respiratory Problems Stated Complaint: SOB History of Present Illness Date Seen by Provider: May 30, 2022 Time Seen by Provider: 13:19 Initial Comments 87-year-old female sent in by residential to be evaluated. They were concerned about maybe a possible pneumonia because they felt she had a low oxygen at the residential. Patient reports she has had a couple days of a cough but otherwise feels fine did not feel like she needed to come out. No reports of fever, chills, shortness of breath. She is normally on 2 L oxygen. Allergies and Home Medications Allergies Coded Allergies: Sulfa (Sulfonamide Antibiotics) (Verified Allergy, Unknown, 02/13/20) acetaminophen (Verified Allergy, Unknown, 02/18/20) ciprofloxacin (Verified Allergy, Unknown, 02/18/20) codeine (Verified Allergy, Unknown, 02/18/20) meperidine (Verified Allergy, Unknown, 02/18/20) oxycodone (Verified Allergy, Unknown, 02/18/20) ropinirole (Verified Allergy, Unknown, 02/18/20) Patient Home Medication List Home Medication List Reviewed: Yes Alprazolam (Alprazolam) 0.5 Mg Tablet, 0.5 MG PO Q8H PRN for ANXIETY, (Reported) Entered as Reported by: SAMANTHA BERRIOS on 01/09/21 1353 Apixaban (Eliquis) 2.5 Mg Tablet, 2.5 MG PO BID, (Reported) Entered as Reported by: SAMANTHA BERRIOS on 01/09/21 1424 Artificial Tears (Artificial Tears) 15 Ml Soln, 1 DROP OU QID, (Reported) Entered as Reported by: SAMANTHA BERRIOS on 01/09/21 1505 Ascorbate Calcium/Bioflavonoid (Deanne-C 500 mg Tablet) 1 Each Tablet, 1 EACH PO DAILY, (Reported) Entered as Reported by: SAMANTHA BERRIOS on 01/09/21 1425 Aspirin (Aspirin) 325 Mg Tablet, 325 MG PO DAILY, (Reported) Entered as Reported by: SAMANTHA BERRIOS on 01/09/21 1428 Aspirin (Aspirin EC) 325 Mg Tablet.dr, 325 MG PO Q6H PRN for PAIN-MILD (1-4), (Reported) Entered as Reported by: SAMANTHA BERRIOS on 01/09/21 1609 Atorvastatin Calcium (Atorvastatin Calcium) 10 Mg Tablet, 5 MG PO 1200, (Reported) Entered as Reported by: SAMANTHA BERRIOS on 01/09/21 1437 Calcium Carbonate/Vitamin D3 (Os-Jules 500+D3 Caplet) 1 Each Tablet, 1 EACH PO DAILY, (Reported) Entered as Reported by: SAMANTHA BERRIOS on 01/09/21 1422 Carbidopa/Levodopa (Carbidopa-Levodopa 25-250 Tab) 1 Each Tablet, 1 EACH PO 0700,1200,1600, (Reported) Entered as Reported by: SAMANTHA BERRIOS on 01/09/21 1430 Carbidopa/Levodopa (Carbidopa-Levodopa 25-100 Tab) 1 Each Tablet, 2 EACH PO HS, (Reported) Entered as Reported by: SAMANTHA BERRIOS on 01/09/21 1439 Cefdinir (Cefdinir) 300 Mg Capsule, 300 MG PO BID Prescribed by: PREETI GEORGE on 01/15/21 1030 Cefuroxime Axetil (Cefuroxime) 250 Mg Tablet, 250 MG PO BID Prescribed by: LILO RESTREPO on 02/19/21 1458 Cranberry Conc/Ascorbic Acid (Cranberry Concentrate Softgel) 1 Each Capsule, 2 EACH PO DAILY, (Reported) Entered as Reported by: SAMANTHA BERRIOS on 01/09/21 1443 Cyanocobalamin/FA/Pyridoxine (Folbee Tablet) 1 Each Tablet, 1 EACH PO Q48H, (Reported) Entered as Reported by: SAMANTHA BERRIOS on 01/09/21 1529 D-Methorphan/Acetamin/Doxylamn (Night Time Cold-Flu Softgel) 1 Each Capsule, 1 EACH PO Q6H PRN for COUGH, (Reported) Entered as Reported by: SAMANTHA BERRIOS on 01/09/21 1453 Diclofenac Sodium (Diclofenac Sodium) 100 Gm Gel..gram., 1 APPLIC TP BID, (Reported) Entered as Reported by: SAMANTHA BERRIOS on 01/09/21 1509 Esomeprazole Magnesium (Esomeprazole Magnesium) 20 Mg Capsule.dr, 20 MG PO DAILY, (Reported) Entered as Reported by: SAMANTHA BERRIOS on 01/09/21 1400 Fluticasone/Salmeterol (Advair 250-50 Diskus) 1 Each Blst.w.dev, 1 EACH IH BID, (Reported) Entered as Reported by: SAMANTHA BERRIOS on 01/09/21 1504 Furosemide (Furosemide) 40 Mg Tablet, 40 MG PO BID, (Reported) Entered as Reported by: SAMANTHA BERRIOS on 01/09/21 1359 Guaifenesin (Guaifenesin) 400 Mg Tablet, 400 MG PO Q4H PRN for CONGESTION, (Reported) Entered as Reported by: SAMANTHA BERRIOS on 01/09/21 1456 Ipratropium/Albuterol Sulfate (Iprat-Albut 0.5-3(2.5) mg/3 ml) 3 Ml Ampul.neb, 3 ML IH QID PRN for SHORTNESS OF BREATH, (Reported) Entered as Reported by: SAMANTHA BERRIOS on 01/09/21 1459 L.acidoph & Paracasei,B.lactis (Probiotic) 1 Each Capsule, 1 EACH PO DAILY, (Reported) Entered as Reported by: SAMANTHA BERRIOS on 01/09/21 1446 Levothyroxine Sodium (Levothyroxine) 100 Mcg Capsule, 100 MCG PO DAILY, (Reported) Entered as Reported by: SAMANTHA BERRIOS on 01/09/21 1435 Mirabegron (Myrbetriq) 50 Mg Tab.er.24h, 50 MG PO DAILY, (Reported) Entered as Reported by: SAMANTHA BERRIOS on 01/09/21 1426 Montelukast Sodium (Montelukast Sodium) 10 Mg Tablet, 10 MG PO DAILY, (Reported) Entered as Reported by: SAMANTHA BERRIOS on 01/09/21 1423 Ondansetron (Ondansetron Odt) 4 Mg Tab.rapdis, 4 MG PO BID PRN for NAUSEA/VOMITING-1ST LINE, (Reported) Entered as Reported by: SAMANTHA BERRIOS on 01/09/21 1609 Paroxetine HCl (Paxil) 20 Mg Tablet, 30 MG PO DAILY, (Reported) Entered as Reported by: SAMANTHA BERRIOS on 01/09/21 1433 Pimavanserin Tartrate (Nuplazid) 34 Mg Capsule, 34 MG PO HS, (Reported) Entered as Reported by: SAMANTHA BERRIOS on 01/09/21 1436 Polyethylene Glycol 3350 (Miralax) 17 Gm Powd.pack, 17 GM PO DAILY PRN for CONSTIPATION-2ND LINE, (Reported) Entered as Reported by: SAMANTHA BERRIOS on 01/09/21 1513 Polyethylene Glycol 3350 (Miralax) 17 Gm Powd.pack, 17 GM PO Q48H, (Reported) Entered as Reported by: SAMANTHA BERRIOS on 01/09/21 1528 Potassium Chloride (Klor-Con 8) 8 Meq Tablet.er, 8 MEQ PO BID, (Reported) Entered as Reported by: SAMANTHA BERRIOS on 01/09/21 1403 Pramipexole Di-HCl (Mirapex) 0.5 Mg Tablet, 0.5 MG PO 1699,1999, (Reported) Entered as Reported by: SAMANTHA BERRIOS on 01/09/21 1412 Quetiapine Fumarate (Seroquel) 25 Mg Tablet, 100 MG PO HS, (Reported) Entered as Reported by: SAMANTHA BERRIOS on 01/09/21 1418 Rivastigmine (Exelon) 9.5 Mg Patch, 9.5 MG TD DAILY, (Reported) Entered as Reported by: SAMANTHA BERRIOS on 01/09/21 1404 Sennosides/Docusate Sodium (Senna-S 8.6-50 mg Tablet) 1 Each Tablet, 1 EACH PO DAILY, (Reported) Entered as Reported by: SAMANTHA BERRIOS on 01/09/21 1508 Sodium Chloride (Laurence-128) 15 Ml Drops, 1 DROP OU HS, (Reported) Entered as Reported by: SAMANTHA BERRIOS on 01/09/21 1500 Ubidecarenone (Co Q-10) 200 Mg Capsule, 200 MG PO DAILY, (Reported) Entered as Reported by: SAMANTHA BERRIOS on 01/09/21 1432 Review of Systems Review of Systems Constitutional: No chills, No fever EENTM: no symptoms reported Respiratory: cough; No short of breath Cardiovascular: no symptoms reported Gastrointestinal: no symptoms reported Genitourinary: no symptoms reported Musculoskeletal: no symptoms reported Skin: no symptoms reported Psychiatric/Neurological: No Symptoms Reported Hematologic/Lymphatic: No Symptoms Reported Immunological/Allergic: no symptoms reported Past Jcopajg-Kalojf-Lvzxap Hx Immunizations Up To Date First/Initial COVID19 Vaccinat: 05/21 Second COVID19 Vaccination Luís: 06/11 Seasonal Allergies Seasonal Allergies: No Past Medical History Surgery/Hospitalization HX: ANXIETY AND CHF Surgeries: No Respiratory: Yes COPD Cardiac: Yes (CHF) Cardiomyopathy, High Cholesterol, Hypertension Neurological: Yes Dementia, Parkinson's Disease, TIA Genitourinary: Yes UTI-Chronic Gastrointestinal: Yes Gastroesophageal Reflux Musculoskeletal: Yes (Osteomyelitis, Rotator cuff tear, Restless leg syndrome) Osteoporosis, Arthritis Endocrine: Yes (Hypokalemia) Hypothyroidsim HEENT: No Cancer: Yes Breast Psychosocial: Yes Anxiety, Depression Integumentary: No Blood Disorders: No Family Medical History No Pertinent Family Hx Physical Exam Vital Signs - First Documented 05/30/22 13:20 Temp 36.7 Pulse 96 Resp 18 B/P (MAP) 105/64 (78) Pulse Ox 96 O2 Delivery Nasal Cannula O2 Flow Rate 2.00 Capillary Refill : Height: '" Weight: lbs. oz. kg; 28.00 BMI Method: General Appearance: WD/WN, no apparent distress HEENT: PERRL/EOMI, normal ENT inspection Neck: full range of motion, supple Respiratory: no respiratory distress, no accessory muscle use, wheezing (Minimal, diffuse) Cardiovascular: normal peripheral pulses, regular rate, rhythm Gastrointestinal: non tender, soft Neurologic/Psychiatric: alert, normal mood/affect, oriented x 3 Skin: normal color, warm/dry Progress/Results/Core Measures Suspected Sepsis SIRS Temperature: Pulse: Respiratory Rate: Laboratory Tests 05/30/22 13:30: White Blood Count 7.1 Blood Pressure / Mean: Laboratory Tests 05/30/22 13:30: Creatinine 0.82, Platelet Count 249, Total Bilirubin 0.4 Results/Orders Lab Results Laboratory Tests Test 05/30/22 13:30 Range/Units White Blood Count 7.1 4.3-11.0 10^3/uL Red Blood Count 4.71 3.80-5.11 10^6/uL Hemoglobin 13.1 11.5-16.0 g/dL Hematocrit 41 35-52 % Mean Corpuscular Volume 88 80-99 fL Mean Corpuscular Hemoglobin 28 25-34 pg Mean Corpuscular Hemoglobin Concent 32 32-36 g/dL Red Cell Distribution Width 14.4 10.0-14.5 % Platelet Count 249 130-400 10^3/uL Mean Platelet Volume 11.2 9.0-12.2 fL Immature Granulocyte % (Auto) 0 % Neutrophils (%) (Auto) 77 H 42-75 % Lymphocytes (%) (Auto) 10 L 12-44 % Monocytes (%) (Auto) 12 0-12 % Eosinophils (%) (Auto) 1 0-10 % Basophils (%) (Auto) 1 0-10 % Neutrophils # (Auto) 5.5 1.8-7.8 10^3/uL Lymphocytes # (Auto) 0.7 L 1.0-4.0 10^3/uL Monocytes # (Auto) 0.8 0.0-1.0 10^3/uL Eosinophils # (Auto) 0.1 0.0-0.3 10^3/uL Basophils # (Auto) 0.0 0.0-0.1 10^3/uL Immature Granulocyte # (Auto) 0.0 0.0-0.1 10^3/uL Sodium Level 137 135-145 MMOL/L Potassium Level 3.7 3.6-5.0 MMOL/L Chloride Level 96 L 98-107 MMOL/L Carbon Dioxide Level 32 21-32 MMOL/L Anion Gap 9 5-14 MMOL/L Blood Urea Nitrogen 19 H 7-18 MG/DL Creatinine 0.82 0.60-1.30 MG/DL Estimat Glomerular Filtration Rate 69 BUN/Creatinine Ratio 23 Glucose Level 107 H 70-105 MG/DL Calcium Level 9.3 8.5-10.1 MG/DL Corrected Calcium 9.2 8.5-10.1 MG/DL Total Bilirubin 0.4 0.1-1.0 MG/DL Aspartate Amino Transf (AST/SGOT) 5 5-34 U/L Alanine Aminotransferase (ALT/SGPT) 11 0-55 U/L Alkaline Phosphatase 105 40-136 U/L C-Reactive Protein 0.51 H <0.50 MG/DL Total Protein 6.7 6.4-8.2 GM/DL Albumin 4.1 3.2-4.5 GM/DL Influenza Type A (RT-PCR) Not Detected Not Detecte Influenza Type B (RT-PCR) Not Detected Not Detecte SARS-CoV-2 RNA (RT-PCR) Detected H Not Detecte My Orders Orders - TOBAR,HI L DO Chest 1 View Ap/Pa Only (05/30/22 13:22) Cbc With Automated Diff (05/30/22 13:22) Comprehensive Metabolic Panel (05/30/22 13:22) Influenza A And B By Pcr (05/30/22 13:22) Crp Fs (05/30/22 13:22) Covid 19 Inhouse Test (05/30/22 13:22) Albuterol/Ipra Inhalation Soln (Duoneb I (05/30/22 13:30) Svn Small Volume Nebulizer (05/30/22 13:22) Medications Given in ED Current Medications Medications Dose Ordered Sig/Yinka Route Start Time Stop Time Status Last Admin Dose Admin Albuterol/ Ipratropium 3 ml ONCE ONCE INH 05/30/22 13:30 05/30/22 13:31 DC 05/30/22 13:45 3 ML Vital Signs/I&O 05/30/22 05/30/22 13:20 13:20 Temp 36.7 Pulse 96 Resp 18 B/P (MAP) 105/64 (78) Pulse Ox 96 O2 Delivery Nasal Cannula Room Air O2 Flow Rate 2.00 Capillary Refill : Progress Note : Progress Note Patient's x-ray was reviewed and shows no acute findings. Patient's labs were reviewed. She is positive for COVID. Patient O2 saturations remained in the mid to upper 90s on her baseline on home 2 L oxygen. She does not show any signs of respiratory distress or concerns. Patient was stable discharged back to the residential. They can contact your primary care provider if they would like to start Paxlovid. Patient was stable upon discharge Diagnostic Imaging Diagonstic Imaging: Xray Plain Films/CT/US/NM/MRI: chest Comments Date of Exam:05/30/22 CHEST 1 VIEW AP/PA ONLY INDICATION: Cough. TIME OF EXAM: 01:33 p.m. COMPARISON: Correlation is made with prior chest from 02/19/2021. FINDINGS: The heart is enlarged. Patient has a very large hiatal hernia. Lungs are clear. No infiltrates are seen. There is no effusion or pneumothorax. There are surgical clips in the left axilla. IMPRESSION: Large hiatal hernia and cardiomegaly. No acute cardiopulmonary process is detected. Reviewed: Reviewed by Me, Reviewed/Discussed Departure Impression Primary Impression: COVID-19 Disposition: 01 HOME, SELF-CARE Condition: Stable Departure-Patient Inst. Referrals: SELF,SANDRA TAVERA (PCP) Primary Care Physician Patient Instructions: COVID-19 (DC) Add. Discharge Instructions: Follow-up with her primary care provider as needed. Encourage her to drink plenty of fluids. All discharge instructions reviewed with patient and/or family. Voiced understanding. HI TOBAR DO May 30, 2022 13:19
[2022-05-30 13:20] VITALS: BP 105/64
[2022-05-30] MEDS ORDERED: RT-ALBUTEROL/IPRATROPIUM 3 ML (DUONEB) VIAL INH ONE (13:30)
[2022-05-30 13:35] LABS: BASOPHILS % (AUTO) 1 % (0-10); EOSINOPHILS # (AUTO) 0.1 10^3/uL (0.0-0.3); EOSINOPHILS % (AUTO) 1 % (0-10); HEMATOCRIT 41 % (35-52); HEMOGLOBIN 13.1 g/dL (11.5-16.0); LYMPHOCYTES # (AUTO) 0.7 10^3/uL (1.0-4.0); LYMPHOCYTES % (AUTO) 10 % (12-44); MEAN CORPUSCULAR HEMOGLOBIN 28 pg (25-34); MEAN CORPUSCULAR HGB CONC 32 g/dL (32-36); MEAN CORPUSCULAR VOLUME 88 fL (80-99); MEAN PLATELET VOLUME 11.2 fL (9.0-12.2); MONOCYTES # (AUTO) 0.8 10^3/uL (0.0-1.0); MONOCYTES % (AUTO) 12 % (0-12); NEUTROPHILS # (AUTO) 5.5 10^3/uL (1.8-7.8); NEUTROPHILS % (AUTO) 77 % (42-75); PLATELET COUNT 249 10^3/uL (130-400); WHITE BLOOD COUNT 7.1 10^3/uL (4.3-11.0)
--- NOTE | 2022-05-30 13:46 | Diagnostic Imaging Report ---
INDICATION: Cough. TIME OF EXAM: 01:33 p.m. COMPARISON: Correlation is made with prior chest from 02/19/2021. FINDINGS: The heart is enlarged. Patient has a very large hiatal hernia. Lungs are clear. No infiltrates are seen. There is no effusion or pneumothorax. There are surgical clips in the left axilla. IMPRESSION: Large hiatal hernia and cardiomegaly. No acute cardiopulmonary process is detected. Dictated by: Dictated on workstation # [id number]
[2022-05-30 13:55] LABS: ALBUMIN 4.1 GM/DL (3.2-4.5); BILIRUBIN,TOTAL 0.4 MG/DL (0.1-1.0); CALCIUM 9.3 MG/DL (8.5-10.1); CREATININE SERUM 0.82 MG/DL (0.60-1.30); POTASSIUM 3.7 MMOL/L (3.6-5.0); TOTAL PROTEIN 6.7 GM/DL (6.4-8.2)
== END 2022-05-30 14:19 | disposition home or self-care (01) ==
LOC: EDUNIT# 13:14 → ER FS 13:15
DX: U07.1 COVID-19 (principal); R05.9 Cough, unspecified; Z99.81 Dependence on supplemental oxygen
CPT/HCPCS: 36415; 71045; 80053; 85025; 86141; 87636; 94640